=== PATIENT | female | born 1935 | race Caucasian/White ===

== ENCOUNTER 2020-10-16 08:51 | Outpatient (REF) | payer MEDICARE, SELFPAY ==
--- NOTE | 2020-10-16 | PFT_ITS ---
INDICATIONS: Asthma, COPD/overlap syndrome. SPIROMETRY: The FEV1 to FVC 79% with an FEV1 of 2.2 L, which is 129% predicted, and an FVC of 2.81 L, which is 121% predicted. No significant response to bronchodilators noted. Maximum voluntary ventilation 101% predicted. LUNG VOLUMES: Total lung capacity 106% predicted. DIFFUSION CAPACITY: DLCO 71% predicted. COMPARISONS: None. INTERPRETATION: No obstructive nor restrictive ventilatory defects identified. No significant response to bronchodilators noted. Normal maximum voluntary ventilation. Lung volumes are within normal limits and diffusion capacity demonstrates a mild diffusion impairment. Clinical correlation warranted. Roshan Monk MD MR/MODL / [id number]
== END 2020-10-16 08:52 | disposition home or self-care (01) ==
LOC: HO.RESP 08:51
PROVIDERS: PCP Internal Medicine; Visit Provider Hospitalist
DX: J44.9 Chronic obstructive pulmonary disease, unspecified (principal)
CPT/HCPCS: 94060; 94727; 94729; 99212

== ENCOUNTER → 2021-10-15 09:23 | Outpatient (BNVA) | payer MEDICARE, SELFPAY | PROVIDERS: PCP Internal Medicine; Visit Provider Hospitalist | DX: J45.40 Moderate persistent asthma, uncomplicated (principal); J30.9 Allergic rhinitis, unspecified; R91.8 Other nonspecific abnormal finding of lung field; K21.00 Gastro-esophageal reflux disease with esophagitis, without bleeding; R05.9 Cough, unspecified | CPT/HCPCS: 99212 ==

== ENCOUNTER → 2022-05-11 09:49 | Outpatient (BNVA) | payer MEDICARE, SELFPAY | PROVIDERS: PCP Internal Medicine; Visit Provider Hospitalist | DX: J45.40 Moderate persistent asthma, uncomplicated (principal); J30.9 Allergic rhinitis, unspecified; K21.00 Gastro-esophageal reflux disease with esophagitis, without bleeding; R91.8 Other nonspecific abnormal finding of lung field; Z79.899 Other long term (current) drug therapy | CPT/HCPCS: 99212 ==

== ENCOUNTER 2023-05-02 09:40 | Outpatient (AMB) | payer MEDICARE, SELFPAY ==
--- NOTE | 2023-05-02 09:47 | MHC.OFFVIS ---
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 She also has to history of cough in addition to reflux disease. Overall she has been doing well on the current respiratory regimen. Unfortunately, she was not able to get her nebulizer because of issues with her coverage and also getting her machine from the [employer] does requested. The patient does need a nebulizer specially during the spring and summer months for her respiratory status gets worse. One her to have everything available to treat herself effectively home. In the meantime the patient does have reflux symptoms. We did discuss the reflux diet and also had been taking omeprazole with good effect in the past. 10/16/2020 The patient is here for pulmonary follow-up visit. Overall the patient has been doing well. She has been taking the Spiriva and also the singular. Recently she was doing the spring cleaning and she started developing worsening cough. She had to use her short-acting beta agonist. She also used some cough syrup with good effect. The last time she was the short-acting beta agonist was yesterday. Her cough has now subsided. Her Spiriva is no longer being covered she was prescribed increase. She has not started as of yet as she still has some Spiriva. She did undergo pulmonary function studies today. I did review them with her. No evidence of any obstruction and no evidence of any restriction. She does have a mild diffusion impairment. The patient at this point is doing well. Her respiratory capacity stable. She was supposed to have a chest x-ray but she did not have it. At this point her respiratory exam is normal so will hold off on it. If she develops any worsening symptoms or recurring cough or have her undergo a chest x-ray. In the meantime she is going to try to see how she does off the Spiriva without starting the Incruse. It will also start her on additional nasal therapy for postnasal drip that is likely contributing to her cough. 10/15/2021 the patient is here for a pulmonary follow-up visit. Overall the patient is doing fairly well. She still complains of her chronic cough. [id number] severity. Does have a short-acting beta agonist. She is she is getting some relief with the Astelin nasal spray of the she does not like the after taste. We did review her last CT scan of the chest that was done over the summer of 2020 demonstrating pulmonary nodules. This was done at [facility]. She needs to have a repeat CT scan sometime in the early fall to addressed does nodular densities. 05/11/2022 the patient is here for a pulmonary follow-up visit. Overall the patient has been doing better. Her cough is better overall. She continues to respiratory medication. She is also using her nasal sprays. Does have nasal congestion but overall better. Patient did have a CT scan of the chest at [facility] which was personally by me. Her pulmonary nodules are stable and appears stable more than 2 years. Therefore at this point she will not need more serial CT scans unless she has any worsening symptoms or any new symptoms. The patient did have some slight haziness at the bases but no significant scarring noted. Clinically she is doing well. 05/02/2023 the patient is here for a pulmonary follow-up visit. For last few days she started developing a cough. It appears to be more a croupy cough sometimes she does bring up some phlegm. Also complaining of chest tightness and shortness of breath. She does have a nebulizer but she ran out of the nebulized solutions therefore she has minimal to use it. She has been using her respiratory medications with only partial resolution of symptoms. She is actively coughing in the office and is in the croupy. It appears to be consistent with viral syndrome although could develop into a bacterial process. Will go ahead and send her a course of antibiotics and also she will need prednisone for the wheezing and the asthma exacerbation. She needs to be using her nebulizer so therefore I will send her I am feels for her nebulizer machine. The patient will continue to use her maintenance therapy. The patient is no better she needs to call the office. Otherwise follow-up in 6 months. [facility] Medical History (Updated 05/02/23 @ 22:15 by Roshan Monk MD) Asthma-COPD overlap syndrome Pulmonary nodules Cough Chronic allergic rhinitis Asthma Gastroesophageal reflux disease with esophagitis Social History (Updated 10/15/21 @ 09:39 by ISHA Hyatt) Patient Tobacco Use Status: Never used Tobacco Review of Systems Const Denies night sweats ENT Denies change in voice, Denies lip swelling, Denies mouth pain, Reports nasal congestion, Reports nasal discharge and Denies tongue swelling Card Denies chest pain Resp Reports chest congestion, Reports cough and Reports wheezing GI Denies abdominal pain Musc Denies no additional complaints Neuro Denies Neuro-related abnormal movements Psych Denies no additional complaints Manuel/Lymph Denies easy bleeding and Denies lymphadenopathy Aller/Immun Denies lip swelling, Denies tongue swelling and Reports wheezing Physical Exam Vital Signs: Last Vital Signs Pulse 74 05/02/23 09:48 BP 142/60 H 05/02/23 09:48 Pulse Ox 98 05/02/23 09:48 Oxygen Delivery Method Room Air 05/02/23 09:48 BMI result Body Mass Index 23.4 Const General: alert HEENT General nose exam: Abnormal external nose present and Nasal discharge present Neck Neck: Yes normal visual inspection, Yes full ROM and Yes no lymphadenopathy Chest Chest palpation & inspection: normal inspection of the chest Resp Effort & Inspection: Actively coughing Quality: actively coughing Auscultation: no rales, rhonchi, wheezes and diminished lung sounds Cardio Rate: regular rate Rhythm: regular rhythm Heart sounds: S1 normal heart sound present and S2 normal heart sound present GI Palpation (GI): Soft to palpation and nontender Auscultation: normal bowel sounds General: Yes no CVA tenderness Back/Spine/Pelvis Back: no CVA tenderness Assessment & Plan Assessment & Plan (1) Asthma: Code(s): J45.909 - Unspecified asthma, uncomplicated Qualifiers: Asthma complication type: with acute exacerbation Asthma persistence: persistent Asthma severity: moderate Qualified Code(s): J45.41 - Moderate persistent asthma with (acute) exacerbation (2) Chronic allergic rhinitis: Code(s): J30.9 - Allergic rhinitis, unspecified (3) Gastroesophageal reflux disease with esophagitis: Code(s): K21.00 - Gastro-esophageal reflux disease with esophagitis, without bleeding Qualifiers: Esophagitis bleeding: without hemorrhage Qualified Code(s): K21.00 - Gastro-esophageal reflux disease with esophagitis, without bleeding (4) Pulmonary nodules: Code(s): R91.8 - Other nonspecific abnormal finding of lung field (5) Cough: Code(s): R05 - Cough Qualifiers: Cough type: chronic Qualified Code(s): R05.3 - Chronic cough (6) Laryngotracheitis: Code(s): J04.2 - Acute laryngotracheitis Plan start Azithromycin start prednisone taper continue Symbicort ASHLIE as needed Continue Astelin nasal spray Continue Singulair Reflux diet No serial CT chest at this time F/U 6 months or sooner if no better Medications: New azithromycin 500 mg PO DAILY 5 days 5 tabs 0RF prednisone PO daily; Take 2 tabs daily x 5 days, then 1 tablet daily x 5 days 10 days 15 tabs 0RF albuterol sulfate 2.5 mg (3 mL) inhalation QID 30 days 180 mL 5RF J44.9 - Chronic obstructive pulmonary disease, unspecified Coding Level of Care Code Est Pt Level 4 (47876) Diagnoses Moderate persistent asthma with acute exacerbation J45.41 Asthma complication type: with acute exacerbation Asthma persistence: persistent Asthma severity: moderate Chronic allergic rhinitis J30.9 Gastroesophageal reflux disease with esophagitis without hemorrhage K21.00 Esophagitis bleeding: without hemorrhage Pulmonary nodules R91.8 Chronic cough R05.3 Cough type: chronic Laryngotracheitis J04.2 Time Spent (min) 18
[2023-05-02 09:48] VITALS: BP 142/60; PULSE 74; O2SAT 98; BMI 23.4
== END 2023-05-02 10:15 | disposition home or self-care (01) ==
PROVIDERS: PCP Internal Medicine; Visit Provider Hospitalist
DX: J45.41 Moderate persistent asthma with (acute) exacerbation (principal); J30.9 Allergic rhinitis, unspecified; K21.00 Gastro-esophageal reflux disease with esophagitis, without bleeding; R91.8 Other nonspecific abnormal finding of lung field; R05.3 Chronic cough; J04.2 Acute laryngotracheitis
CPT/HCPCS: 99214

== ENCOUNTER → 2023-05-02 09:40 | Outpatient (BNVA) | payer MEDICARE, SELFPAY | PROVIDERS: PCP Internal Medicine; Visit Provider Hospitalist | DX: J45.41 Moderate persistent asthma with (acute) exacerbation (principal); J30.9 Allergic rhinitis, unspecified; J04.2 Acute laryngotracheitis; R05.3 Chronic cough; R91.8 Other nonspecific abnormal finding of lung field; K21.00 Gastro-esophageal reflux disease with esophagitis, without bleeding | CPT/HCPCS: 99212 ==

== ENCOUNTER 2023-10-31 09:52 | Outpatient (REF) | payer MEDICARE, OTHER, SELFPAY ==
--- NOTE | ~2023-10-31 | XR_ITS ---
EXAMINATION: XR CHEST CLINICAL INFORMATION: Chronic obstructive pulmonary disease COMPARISON: None available. TECHNIQUE: 2 views of the chest were obtained. FINDINGS: vascularity. LUNGS: Lungs are clear. No pneumothorax is seen. BONES: Bony skeleton is intact. XR/XR chest 2V IMPRESSION: Normal chest x-ray.
[2023-10-31 11:05] LABS: MANUAL DIFF FLAG NO
[2023-10-31 12:54] LABS: Basophils Absolute Auto 0.1 X10*3/uL (0.0-0.2); Basophils Percent Auto 0.8 % (0-2); Eosinophils Absolute Auto 0.6 X10*3/uL (0.0-0.4); Eosinophils Percent Auto 7.7 % (0-4); Hematocrit 35.6 % (37.0-47.0); Hemoglobin 12.2 g/dl (12.0-16.0); Imm Gran Abs Auto 0.03 X10*3/uL (0.00-0.03); Imm Gran Pct Auto 0.4 % (0.0-0.4); Lymphocytes Absolute Auto 0.9 X10*3/uL (1.2-4.9); Lymphocytes Percent Auto 10.9 % (20-40); Mean Corpuscular HGB Conc 34.3 g/dl (31.0-35.0); Mean Corpuscular Volume 87.7 fL (80.0-98.0); Mean Platelet Volume 10.5 fL (9.4-12.3); Monocytes Absolute Auto 0.6 X10*3/uL (0.1-1.2); Monocytes Percent Auto 7.4 % (2-11); Neutrophils Absolute Auto 5.7 x10*3/uL (2.0-8.3); Neutrophils Percent Auto 72.8 % (45-73); Platelet Count 232 X10*3/uL (160-400); Red Blood Count 4.06 X10*6/uL (4.20-5.50); Red Cell Distribution Width 12.5 % (11.0-16.0); White Blood Count 7.8 X10*3/uL (4.8-10.8)
[2023-10-31 13:36] LABS: Anion Gap 15 (12-20); Blood Urea Nitrogen 16 mg/dL (9-16); Calcium 9.2 mg/dL (8.4-10.2); Carbon Dioxide 24 mmol/L (22-29); Chloride 97 mmol/L (96-108); Erythrocyte Sedimentation Rate 32 MM/HR (0-20); Estimated Glomerular Filt Rate 50; Glucose Random 104 mg/dL (60-115); Potassium 3.7 mmol/L (3.3-5.1); Sodium 132 mmol/L (135-145)
[2023-11-01 21:34] LABS: IgA 185 mg/dL (70-320); IgG 1109 mg/dL (600-1540); IgM 54 mg/dL (50-300)
[2023-11-12 21:29] LABS: Immunoglobulin E 24 kU/L (<OR=114)
== END 2023-10-31 09:53 | disposition home or self-care (01) ==
LOC: HO.LAB 09:52
PROVIDERS: PCP Internal Medicine; Visit Provider Hospitalist
DX: J18.0 Bronchopneumonia, unspecified organism (principal); J44.9 Chronic obstructive pulmonary disease, unspecified
CPT/HCPCS: 36415; 71046; 80048; 82784; 82785; 85025; 85652; 99212

== ENCOUNTER 2023-10-31 09:52 | Outpatient (AMB) | payer MEDICARE, OTHER, SELFPAY ==
[2023-10-31 10:19] VITALS: PULSE 83; O2SAT 96; BMI 25.7
--- NOTE | 2023-10-31 10:19 | A.OFFVIS_ITS ---
Intake Vital Signs 10/31/23 10:19 Height 5 ft 3 in Weight 145 lb BMI 25.7 Pulse 83 Pulse Source Pulse Oximeter Pulse Oximetry (%) 96 Oxygen Delivery Method Room Air Intake Visit Reasons: COPD [place] Required: No Allergies No Known Allergies Allergy (Verified 10/31/23 10:20) HPI HPI Comments History of Present Illness0 Details The patient is an 87-year-old woman known history of asthma COPD overlap syndrome. She also has to history of cough in addition to reflux disease. Overall she has been doing well on the current respiratory regimen. Unfortunately, she was not able to get her nebulizer because of issues with her coverage and also getting her machine from the [employer] does requested. The patient does need a nebulizer specially during the spring and summer months for her respiratory status gets worse. One her to have everything available to treat herself effectively home. In the meantime the patient does have reflux symptoms. We did discuss the reflux diet and also had been taking omeprazole with good effect in the past. 05/11/2022 the patient is here for a pulmonary follow-up visit. Overall the patient has been doing better. Her cough is better overall. She continues to respiratory medication. She is also using her nasal sprays. Does have nasal congestion but overall better. Patient did have a CT scan of the chest at [facility] which was personally by me. Her pulmonary nodules are stable and appears stable more than 2 years. Therefore at this point she will not need more serial CT scans unless she has any worsening symptoms or any new symptoms. The patient did have some slight haziness at the bases but no significant scarring noted. Clinically she is doing well. 05/02/2023 the patient is here for a pulmonary follow-up visit. For last few days she started developing a cough. It appears to be more a croupy cough sometimes she does bring up some phlegm. Also complaining of chest tightness and shortness of breath. She does have a nebulizer but she ran out of the nebulized solutions therefore she has minimal to use it. She has been using her respiratory medications with only partial resolution of symptoms. She is actively coughing in the office and is in the croupy. It appears to be consistent with viral syndrome although could develop into a bacterial process. Will go ahead and send her a course of antibiotics and also she will need prednisone for the wheezing and the asthma exacerbation. She needs to be using her nebulizer so therefore I will send her I am feels for her nebulizer machine. The patient will continue to use her maintenance therapy. The patient is no better she needs to call the office. Otherwise follow-up in 6 months. 10/31/2023 the patient is here for sick visit. She developing worsening cough. She has been sick now for about 3 weeks. Initially she was coughing some lose sticky white phlegm. She felt congested. She has been using her nebulizer with good improvement of her symptoms. Although is only temporary. She has been using it twice a day now. Seems to be little better. Now her chest congestion has gotten a little heavier. The mucus is darker and thick in color and difficult to expectorate. She is concerned because she does not want a have worsening of her breathing she has a hard time already. On exam she does have any significant wheezing although she does have some crackles at the bases. Will go ahead and treat her for bronchopneumonia. The patient should have a chest x-ray and she has not had blood work and sometimes will go ahead and do that as well. Will go ahead and send her prescription for Augmentin. If the patient is not getting better I did give her a sputum cup in order for her to provide us a sputum culture. [facility] Medical History (Updated 10/31/23 @ 10:35 by Roshan Monk MD) Bronchopneumonia Asthma-COPD overlap syndrome Pulmonary nodules Cough Chronic allergic rhinitis Asthma Gastroesophageal reflux disease with esophagitis Social History (Updated 10/15/21 @ 09:39 by ISHA Hyatt) Patient Tobacco Use Status: Never used Tobacco Review of Systems Const Denies night sweats ENT Denies change in voice, Denies lip swelling, Denies mouth pain, Reports nasal congestion, Reports nasal discharge and Denies tongue swelling Card Denies chest pain Resp Reports chest congestion, Reports cough and Reports wheezing GI Denies abdominal pain Musc Denies no additional complaints Neuro Denies Neuro-related abnormal movements Psych Denies no additional complaints Manuel/Lymph Denies easy bleeding and Denies lymphadenopathy Aller/Immun Denies lip swelling, Denies tongue swelling and Reports wheezing Physical Exam Vital Signs: Last Vital Signs Pulse 83 10/31/23 10:19 Pulse Ox 96 10/31/23 10:19 Oxygen Delivery Method Room Air 10/31/23 10:19 BMI result Body Mass Index 25.7 Const General: alert HEENT General nose exam: Abnormal external nose present and Nasal discharge present Neck Neck: Yes normal visual inspection, Yes full ROM and Yes no lymphadenopathy Chest Chest palpation & inspection: normal inspection of the chest Resp Effort & Inspection: Actively coughing Quality: actively coughing Auscultation: rales, rhonchi, no wheezes and diminished lung sounds Cardio Rate: regular rate Rhythm: regular rhythm Heart sounds: S1 normal heart sound present and S2 normal heart sound present GI Palpation (GI): Soft to palpation and nontender Auscultation: normal bowel sounds General: Yes no CVA tenderness Back/Spine/Pelvis Back: no CVA tenderness Assessment & Plan Assessment & Plan (1) Asthma: Code(s): J45.909 - Unspecified asthma, uncomplicated Qualifiers: Asthma complication type: with acute exacerbation Asthma persistence: persistent Asthma severity: moderate Qualified Code(s): J45.41 - Moderate persistent asthma with (acute) exacerbation (2) Gastroesophageal reflux disease with esophagitis: Code(s): K21.00 - Gastro-esophageal reflux disease with esophagitis, without bleeding Qualifiers: Esophagitis bleeding: without hemorrhage Qualified Code(s): K21.00 - Gastro-esophageal reflux disease with esophagitis, without bleeding (3) Pulmonary nodules: Code(s): R91.8 - Other nonspecific abnormal finding of lung field (4) Cough: Code(s): R05 - Cough Qualifiers: Cough type: chronic Qualified Code(s): R05.3 - Chronic cough (5) Asthma-COPD overlap syndrome: Code(s): J44.9 - Chronic obstructive pulmonary disease, unspecified (6) Bronchopneumonia: Code(s): J18.0 - Bronchopneumonia, unspecified organism Plan start Augmentin start prednisone taper CXR Bloodwork continue Symbicort ASHLIE as needed Continue Astelin nasal spray Continue Singulair Reflux diet F/U 3 months Orders: Orders Basic Metabolic Panel Today J18.0 - Bronchopneumonia, unspecified organism XR chest 2V Today J44.9 - Chronic obstructive pulmonary disease, unspecified Complete Blood Count Auto Diff Today J18.0 - Bronchopneumonia, unspecified organism Immunoglobulins,IgG IgA IgM Today J18.0 - Bronchopneumonia, unspecified organism Sputum Cult + Gram stain Today J18.0 - Bronchopneumonia, unspecified organism Erythrocyte Sedimentation Rate Today J18.0 - Bronchopneumonia, unspecified organism Immunoglobulin E Today J18.0 - Bronchopneumonia, unspecified organism Medications: New amoxicillin-pot clavulanate 875-125 mg 1 tab PO BID 10 days 20 tabs 0RF prednisone PO daily; Take 2 tabs daily x 5 days, then 1 tablet daily x 5 days 10 days 15 tabs 0RF Coding Level of Care Code Est Pt Level 4 (19182) Diagnoses Moderate persistent asthma with acute exacerbation J45.41 Asthma complication type: with acute exacerbation Asthma persistence: persistent Asthma severity: moderate Gastroesophageal reflux disease with esophagitis without hemorrhage K21.00 Esophagitis bleeding: without hemorrhage Pulmonary nodules R91.8 Chronic cough R05.3 Cough type: chronic Asthma-COPD overlap syndrome J44.9 Bronchopneumonia J18.0 Time Spent (min) 17
== END 2023-10-31 10:41 | disposition home or self-care (01) ==
PROVIDERS: PCP Internal Medicine; Visit Provider Hospitalist
DX: J45.41 Moderate persistent asthma with (acute) exacerbation (principal); K21.00 Gastro-esophageal reflux disease with esophagitis, without bleeding; R91.8 Other nonspecific abnormal finding of lung field; R05.3 Chronic cough; J44.9 Chronic obstructive pulmonary disease, unspecified; J18.0 Bronchopneumonia, unspecified organism
CPT/HCPCS: 99214

== ENCOUNTER 2023-11-05 | Outpatient (REF) | payer MEDICARE, OTHER, SELFPAY | END 2023-11-05 00:01 | disposition home or self-care (01) | LOC: HO.LNP | PROVIDERS: Visit Provider Hospitalist | DX: J18.0 Bronchopneumonia, unspecified organism (principal) | CPT/HCPCS: 87070; 87077; 87185; 87205 ==

== ENCOUNTER 2024-02-05 10:24 | Outpatient (AMB) | payer MEDICARE, OTHER, SELFPAY ==
[2024-02-05 10:44] VITALS: BP 134/58; PULSE 63; O2SAT 98; BMI 25.7
--- NOTE | 2024-02-05 10:44 | A.OFFVIS_ITS ---
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 She also has to history of cough in addition to reflux disease. Overall she has been doing well on the current respiratory regimen. Unfortunately, she was not able to get her nebulizer because of issues with her coverage and also getting her machine from the [employer] does requested. The patient does need a nebulizer specially during the spring and summer months for her respiratory status gets worse. One her to have everything available to treat herself effectively home. In the meantime the patient does have reflux symptoms. We did discuss the reflux diet and also had been taking omeprazole with good effect in the past. 05/11/2022 the patient is here for a pulmonary follow-up visit. Overall the patient has been doing better. Her cough is better overall. She continues to respiratory medication. She is also using her nasal sprays. Does have nasal congestion but overall better. Patient did have a CT scan of the chest at [facility] which was personally by me. Her pulmonary nodules are stable and appears stable more than 2 years. Therefore at this point she will not need more serial CT scans unless she has any worsening symptoms or any new symptoms. The patient did have some slight haziness at the bases but no significant scarring noted. Clinically she is doing well. 05/02/2023 the patient is here for a pulmonary follow-up visit. For last few days she started developing a cough. It appears to be more a croupy cough sometimes she does bring up some phlegm. Also complaining of chest tightness and shortness of breath. She does have a nebulizer but she ran out of the nebulized solutions therefore she has minimal to use it. She has been using her respiratory medications with only partial resolution of symptoms. She is actively coughing in the office and is in the croupy. It appears to be consistent with viral syndrome although could develop into a bacterial process. Will go ahead and send her a course of antibiotics and also she will need prednisone for the wheezing and the asthma exacerbation. She needs to be using her nebulizer so therefore I will send her I am feels for her nebulizer machine. The patient will continue to use her maintenance therapy. The patient is no better she needs to call the office. Otherwise follow-up in 6 months. 10/31/2023 the patient is here for sick visit. She developing worsening cough. She has been sick now for about 3 weeks. Initially she was coughing some lose sticky white phlegm. She felt congested. She has been using her nebulizer with good improvement of her symptoms. Although is only temporary. She has been using it twice a day now. Seems to be little better. Now her chest congestion has gotten a little heavier. The mucus is darker and thick in color and difficult to expectorate. She is concerned because she does not want a have worsening of her breathing she has a hard time already. On exam she does have any significant wheezing although she does have some crackles at the bases. Will go ahead and treat her for bronchopneumonia. The patient should have a chest x-ray and she has not had blood work and sometimes will go ahead and do that as well. Will go ahead and send her prescription for Augmentin. If the patient is not getting better I did give her a sputum cup in order for her to provide us a sputum culture. 02/05/2024 The patient is here for a pulmonary follow up visit. She is feeling better. Completed the abx and prednisone. Has continued to use her respiratory therapy. Nebs as needed for now. CXR personally reviewed by me with bronchiectatic looking airways and minimal opacity of the right hemithorax.. Her bloodwork was reassuring with a strong immune system. [facility] Medical History (Updated 10/31/23 @ 10:35 by Roshan Monk MD) Bronchopneumonia Asthma-COPD overlap syndrome Pulmonary nodules Cough Chronic allergic rhinitis Asthma Gastroesophageal reflux disease with esophagitis Social History (Updated 10/15/21 @ 09:39 by ISHA Hyatt) Patient Tobacco Use Status: Never used Tobacco Review of Systems Const Denies night sweats ENT Denies change in voice, Denies lip swelling, Denies mouth pain, Reports nasal congestion and Denies tongue swelling Card Denies chest pain Resp Denies chest congestion, Reports cough and Denies wheezing GI Denies abdominal pain Musc Reports myalgias Neuro Denies Neuro-related abnormal movements Psych Denies no additional complaints Manuel/Lymph Denies easy bleeding and Denies lymphadenopathy Aller/Immun Denies lip swelling, Denies tongue swelling and Denies wheezing Physical Exam Vital Signs: Last Vital Signs Pulse 63 02/05/24 10:44 BP 134/58 L 02/05/24 10:44 Pulse Ox 98 02/05/24 10:44 Oxygen Delivery Method Room Air 02/05/24 10:44 BMI result Body Mass Index 25.7 Const General: alert HEENT General nose exam: Abnormal external nose present and Nasal discharge present Neck Neck: Yes normal visual inspection, Yes full ROM and Yes no lymphadenopathy Chest Chest palpation & inspection: normal inspection of the chest Resp Effort & Inspection: normal respiratory effort Auscultation: no rales, no rhonchi, no wheezes and diminished lung sounds Cardio Rate: regular rate Rhythm: regular rhythm Heart sounds: S1 normal heart sound present and S2 normal heart sound present GI Palpation (GI): Soft to palpation and nontender Auscultation: normal bowel sounds General: Yes no CVA tenderness Back/Spine/Pelvis Back: no CVA tenderness Assessment & Plan Assessment & Plan (1) Asthma: Code(s): J45.909 - Unspecified asthma, uncomplicated Category: Medical Qualifiers: Asthma complication type: with acute exacerbation Asthma persistence: persistent Asthma severity: moderate Qualified Code(s): J45.41 - Moderate persistent asthma with (acute) exacerbation (2) Gastroesophageal reflux disease with esophagitis: Code(s): K21.00 - Gastro-esophageal reflux disease with esophagitis, without bleeding Category: Medical Qualifiers: Esophagitis bleeding: without hemorrhage Qualified Code(s): K21.00 - Gastro-esophageal reflux disease with esophagitis, without bleeding (3) Pulmonary nodules: Code(s): R91.8 - Other nonspecific abnormal finding of lung field Category: Medical (4) Cough: Code(s): R05 - Cough Category: Medical Qualifiers: Cough type: chronic Qualified Code(s): R05.3 - Chronic cough (5) Asthma-COPD overlap syndrome: Code(s): J44.9 - Chronic obstructive pulmonary disease, unspecified Category: Medical Plan continue Symbicort ASHLIE as needed Continue Astelin nasal spray Continue Singulair Reflux diet F/U 6-8 months Coding Level of Care Code Est Pt Level 4 (19933) Diagnoses Moderate persistent asthma with acute exacerbation J45.41 Asthma complication type: with acute exacerbation Asthma persistence: persistent Asthma severity: moderate Gastroesophageal reflux disease with esophagitis without hemorrhage K21.00 Esophagitis bleeding: without hemorrhage Pulmonary nodules R91.8 Chronic cough R05.3 Cough type: chronic Asthma-COPD overlap syndrome J44.9 Time Spent (min) 17
== END 2024-02-05 11:17 | disposition home or self-care (01) ==
PROVIDERS: PCP Internal Medicine; Visit Provider Hospitalist
DX: J45.41 Moderate persistent asthma with (acute) exacerbation (principal); K21.00 Gastro-esophageal reflux disease with esophagitis, without bleeding; R91.8 Other nonspecific abnormal finding of lung field; R05.3 Chronic cough; J44.9 Chronic obstructive pulmonary disease, unspecified
CPT/HCPCS: 99214

== ENCOUNTER → 2024-02-05 10:24 | Outpatient (BNVA) | payer MEDICARE, OTHER, SELFPAY | PROVIDERS: PCP Internal Medicine; Visit Provider Hospitalist | DX: J44.9 Chronic obstructive pulmonary disease, unspecified (principal); J45.41 Moderate persistent asthma with (acute) exacerbation; K21.00 Gastro-esophageal reflux disease with esophagitis, without bleeding; R91.8 Other nonspecific abnormal finding of lung field; R05.3 Chronic cough | CPT/HCPCS: 99212 ==

== ENCOUNTER 2024-09-26 13:38 | Outpatient (AMB) | payer MEDICARE, OTHER, SELFPAY ==
--- OUTSIDE RECORDS SUMMARY | 2024-09-26 13:47 | XMS_ITS | Encounter Summary ---
Author [place] [address] Care Team Providers Care Blast Furnace Tender Name Role Phone Elvin Christianson MD Primary Care Provider [phone] Encounter Details Date Type Department Care Team (Late st Contact Info) Description 08/26/2024 Lab Requisition [facility] - Main Lab [address] [facility] [place] [id number] Jhonny Acevedo PA [address] [facility] [address] [place] [address] Other fatigue; Vitamin D deficiency, unspecified; Encounter for screening for diabetes mellitus; Essential (primary) hypertension Social History Tobacco Use Types Packs/Day Years Used Date Smoking Tobacco: Never Smokeless Tobacco: Never Alcohol Use Standard Drinks/Week Comments Yes 0 (1 standard drink = 0.6 oz pur e alcohol) Comments Unknown Sex and Gender Information Value Date Recorded Sex Assigned at Not on file Legal Sex Female 3:24 AM EST Gender Identity Not on file Sexual Orientation Not on file documented as of this encounter Plan of Treatment Not on file documented as of this encounter Procedures Procedure Name Priority Date/Time Associated Diagnosis Comments SST - GOLD Routine 08/26/2024 12:00 AM EST Other fatigue Vitamin D deficiency, unspecified Encounter for screening for diabetes mellitus Essential (primary) hypertension CBC WITH AUTO DIFFERENTIAL Routine 08/26/2024 12:00 AM EST Other fatigue Vitamin D deficiency, unspecified Encounter for screening for diabetes mellitus Essential (primary) hypertension VITAMIN D 25 HYDROXY Routine 08/26/2024 12:00 AM EST Other fatigue Vitamin D deficiency, unspecified Encounter for screening for diabetes mellitus Essential (primary) hypertension CBC AND DIFFERENTIAL Routine 08/26/2024 12:00 AM EST Other fatigue Vitamin D deficiency, unspecified Encounter for screening for diabetes mellitus Essential (primary) hypertension THYROID STIMULATING HORMONE Routine 08/26/2024 12:00 AM EST Other fatigue Vitamin D deficiency, unspecified Encounter for screening for diabetes mellitus Essential (primary) hypertension THYROXINE FREE Routine 08/26/2024 12:00 AM EST Other fatigue Vitamin D deficiency, unspecified Encounter for screening for diabetes mellitus Essential (primary) hypertension HEMOGLOBIN A1C Routine 08/26/2024 12:00 AM EST Other fatigue Vitamin D deficiency, unspecified Encounter for screening for diabetes mellitus Essential (primary) hypertension VITAMIN B12 Routine 08/26/2024 12:00 AM EST Other fatigue Vitamin D deficiency, unspecified Encounter for screening for diabetes mellitus Essential (primary) hypertension COMPREHENSIVE METABOLIC PANEL Routine 08/26/2024 12:00 AM EST Other fatigue Vitamin D deficiency, unspecified Encounter for screening for diabetes mellitus Essential (primary) hypertension documented in this encounter Results * SST tube (08/26/2024 12:00 AM EST) Extra Tube Hold for add-ons. 08/26/2024 8:01 PM EST [facility] Comment:Auto resulted. Blood Venous blood specimen / Unknown 08/26/2024 08/26/2024 6:23 PM EST us Jhonny LYONS LAB BLOOD ORDERABLES Final Res ult [facility] [address] [place] [address], [place] [phone] * (ABNORMAL) CBC auto differential (08/26/2024 12:00 AM EST) [facility] WBC 8.3 4.8 - 10.8 K/mcL LAB HEMETOLOGY METHOD 08/26/2024 7:14 PM [facility] RBC 3.90 3.80 - 4.80 M/mcL LAB HEMETOLOGY METHOD 08/26/2024 7:14 PM [facility] Hemoglobin 12.1 11.5 - 16.0 g/dL LAB HEMETOLOGY METHOD 08/26/2024 7:14 PM [facility] Hematocrit 35.9 35.0 - 47.0 % LAB HEMETOLOGY METHOD 08/26/2024 7:14 PM [facility] MCV 92.5 79.0 - 98.0 FL LAB HEMETOLOGY METHOD 08/26/2024 7:14 PM [facility] MCH 31.2 27.0 - 32.0 pcg LAB HEMETOLOGY METHOD 08/26/2024 7:14 PM [facility] MCHC 33.7 32.0 - 37.0 g/dL LAB HEMETOLOGY METHOD 08/26/2024 7:14 PM [facility] RDW 12.4 11.0 - 15.0 % LAB HEMETOLOGY METHOD 08/26/2024 7:14 PM [facility] Platelets 270 130 - 400 K/mcL LAB HEMETOLOGY METHOD 08/26/2024 7:14 PM [facility] MPV 10.8 7.0 - 11.0 FL LAB HEMETOLOGY METHOD 08/26/2024 7:14 PM [facility] NRBC 0.0 <1.0 % LAB HEMETOLOGY METHOD 08/26/2024 7:14 PM [facility] NRBC Absolute 0.00 <0.10 K/mcL LAB HEMETOLOGY METHOD 08/26/2024 7:14 PM [facility] Neutrophils Relative 75.6 % LAB HEMETOLOGY METHOD 08/26/2024 7:14 PM [facility] Lymphocytes Relative 14.9 % LAB HEMETOLOGY METHOD 08/26/2024 7:14 PM [facility] Monocytes Relative 6.5 % LAB HEMETOLOGY METHOD 08/26/2024 7:14 PM [facility] Eosinophils Relative 1.8 % LAB HEMETOLOGY METHOD 08/26/2024 7:14 PM [facility] Basophils Relative 0.7 % LAB HEMETOLOGY METHOD 08/26/2024 7:14 PM [facility] Immature Granulocytes Relative 0.5 % LAB HEMETOLOGY METHOD 08/26/2024 7:14 PM [facility] Neutrophils Absolute 6.25 1.50 - 7.00 K/[facility] LAB HEMETOLOGY METHOD 08/26/2024 7:14 PM [facility] Lymphocytes Absolute 1.23 1.00 - 5.00 K/[facility] LAB HEMETOLOGY METHOD 08/26/2024 7:14 PM [facility] Monocytes Absolute 0.54 0.20 - 1.00 K/[facility] LAB HEMETOLOGY METHOD 08/26/2024 7:14 PM [facility] Eosinophils Absolute 0.15 0.00 - 0.50 K/[facility] LAB HEMETOLOGY METHOD 08/26/2024 7:14 PM [facility] Basophils Absolute 0.06 0.00 - 0.20 K/[facility] LAB HEMETOLOGY METHOD 08/26/2024 7:14 PM [facility] Immature Granulocytes Absolute 0.04(H) 0.00 - 0.03 K/[facility] LAB HEMETOLOGY METHOD 08/26/2024 7:14 PM [facility] Blood Venous blood specimen / Unknown 08/26/2024 08/26/2024 6:23 PM EST us Jhonny LYONS LAB BLOOD ORDERABLES Final Res ult [facility] [address] [place] [address], [place] [phone] * Vitamin D 25 hydroxy (08/26/2024 12:00 AM EST) Vit D, 25-Hydroxy 33.2 30.0 - 80.0 ng/mL LAB CHEMISTRY METHOD 08/26/2024 9:02 PM EST [facility] Blood Venous blood specimen / Unknown 08/26/2024 08/26/2024 6:23 PM EST us Jhonny LYONS LAB BLOOD ORDERABLES Final Res ult Performing Organization Address City/[facility]/ZIP Co de Phone Number [facility] [address] [place] [address], [place] [phone] * Thyroid stimulating hormone (08/26/2024 12:00 AM EST) [facility] TSH 1.23 0.40 - 4.00 mcIU/mL LAB CHEMISTRY METHOD 08/26/2024 9:09 PM EST [facility] Blood Venous blood specimen / Unknown 08/26/2024 08/26/2024 6:23 PM EST us Jhonny LYONS LAB BLOOD ORDERABLES Final Res ult [facility] [address] [place] [address], [place] [phone] * Hemoglobin A1c (08/26/2024 12:00 AM EST) Hemoglobin A1C 5.9 <6.5 % LAB CHEMISTRY METHOD 08/27/2024 2:33 PM EST [facility] Mean Bld Glu Estim. 123 mg/dL LAB CHEMISTRY METHOD 08/27/2024 2:33 PM EST [facility] Blood Venous blood specimen / Unknown 08/26/2024 08/26/2024 6:23 PM EST Jhonny LYONS LAB BLOOD ORDERABLES Final Res ult Performing Organization Address City/[facility]/ZIP Co de Phone Number [facility] [address] [place] [address], [place] [phone] * Thyroxine free (08/26/2024 12:00 AM EST) Pathologist [facility] Free T4 1.36 0.70 - 1.80 ng/dL LAB CHEMISTRY METHOD 08/26/2024 9:02 PM EST [facility] Blood Venous blood specimen / Unknown 08/26/2024 08/26/2024 6:23 PM EST us Jhonny LYONS LAB BLOOD ORDERABLES Final Res ult Performing Organization Address [facility]/ZIP Co de Phone Number [facility] [address] [place] [address], [place] [phone] * (ABNORMAL) Vitamin B12 (08/26/2024 12:00 AM EST) [facility] Vitamin B-12 204(L) 250 - 900 pcg/mL LAB CHEMISTRY METHOD 08/26/2024 8:06 PM EST [facility] Blood Venous blood specimen / Unknown 08/26/2024 08/26/2024 6:23 PM EST Jhonny LYONS LAB BLOOD ORDERABLES Final Res ult Performing Organization Address City/[facility]/ZIP Co de Phone Number [facility] [address] [place] [address], [place] [phone] * (ABNORMAL) Comprehensive metabolic panel (08/26/2024 12:00 AM EST) Sodium 133 133 - 145 mmol/L LAB CHEMISTRY METHOD 08/26/2024 8:06 PM [facility] Potassium 3.4(L) 3.5 - 5.5 mmol/L LAB CHEMISTRY METHOD 08/26/2024 8:06 PM [facility] Chloride 99 96 - 110 mmol/L LAB CHEMISTRY METHOD 08/26/2024 8:06 PM [facility] CO2 25 21 - 32 mmol/L LAB CHEMISTRY METHOD 08/26/2024 8:06 PM [facility] Anion Gap 9 3 - 11 LAB CHEMISTRY METHOD 08/26/2024 8:06 PM [facility] Glucose 104(H) 70 - 100 mg/dL LAB CHEMISTRY METHOD 08/26/2024 8:06 PM [facility] BUN 17 5 - 25 mg/dL LAB CHEMISTRY METHOD 08/26/2024 8:06 PM [facility] Creatinine 1.13(H) 0.50 - 1.10 mg/dL LAB CHEMISTRY METHOD 08/26/2024 8:06 PM [facility] eGFR 47(L) >=60 mL/min/1. 73m2 LAB CHEMISTRY METHOD 08/26/2024 8:06 PM [facility] Comment:Calculation based on the??Chronic Kidney Disease Epidemiology Collaboration (CKD-EPI) equation refit??without adjustment for race. BUN/Creatinine Ratio 15.0 LAB CHEMISTRY METHOD 08/26/2024 8:06 PM [facility] Calcium 8.8 8.5 - 10.5 mg/dL LAB CHEMISTRY METHOD 08/26/2024 8:06 PM [facility] AST (SGOT) 19 10 - 42 unit/L LAB CHEMISTRY METHOD 08/26/2024 8:06 PM [facility] ALT (SGPT) 27 10 - 60 unit/L LAB CHEMISTRY METHOD 08/26/2024 8:06 PM [facility] Alkaline Phosphatase 81 42 - 121 unit/L LAB CHEMISTRY METHOD 08/26/2024 8:06 PM [facility] Total Protein 7.2 6.0 - 8.0 g/dL LAB CHEMISTRY METHOD 08/26/2024 8:06 PM [facility] Albumin 4.1 3.2 - 5.0 g/dL LAB CHEMISTRY METHOD 08/26/2024 8:06 PM [facility] Total Bilirubin 0.6 0.0 - 1.4 mg/dL LAB CHEMISTRY METHOD 08/26/2024 8:06 PM [facility] Blood Venous blood specimen / Unknown 08/26/2024 08/26/2024 6:23 PM EST us Jhonny LYONS LAB BLOOD ORDERABLES Final Res ult [facility] [address] [place] [address], documented in this encounter Visit Diagnoses Diagnosis Other fatigue Vitamin D deficiency, unspecified Encounter for screening for diabetes mellitus Essential (primary) hypertension Unspecified essential hypertension documented in this encounter Care Teams Blast Furnace Tender Relationship Specialty Start Date End Date Elvin Christianson MD [address] [phone] PCP - General Internal Medicine 01/09/18 documented as of this encounter
--- OUTSIDE RECORDS SUMMARY | 2024-09-26 13:47 | XMS_ITS | Data Portability ---
Author Organization [place] [facility] Address [address] [place] [address] Care Team Providers Care Spectrograph Operator Name Role Phone JANICE ANDERSON Primary Care Provider [phone] Assessment Encounter Date Assessment Date Assessment LastModified by Organization Details LastModified Time 02/23/2023 02/23/2023 87-year-old female following up on her right total knee arthroplasty that was performed on 03/03/2022. She is doing well clinically. She understands that she needs to take her antibiotic prophylaxis prior to dental work for which we will be issuing prescriptions for up to 1 more year. After that 1 year she can discontinue her antibiotic prophylaxis per Dr. Gomez's protocol if her dentist wishes to continue this they can take over management. We will see her back in 5 years for repeat examination should she have any orthopedic needs should they arise she should contact our office. She agrees to the above-noted plan. Indirect care and treatment in conjunction with Dr. Gomez Additional treatment plan discussed with the patient in detail included the following; - Provider focused nonsteroidal anti-inflammator y regimen (discussed were the pros, cons, benefits and risks as well as any black box warnings) in patients over 60 years old they should be very cautious in taking these medications due to potential decreased kidney function and or elevated blood pressure. - Analgesic pain medication for pain suppression (discussed were the pros, cons, benefits and risks as well as any black box warnings) - The use of topical pain relieving medication were discussed - The use of ice to decrease inflammation and pain - The use of assistive ambulatory devices for ambulation and fall prevention - Formal specific guided physical therapy program I reviewed my findings at length with the patient today. ??We discussed the nature and etiology of this problem along with current treatment options. We discussed the expected course and outcomes and what to expect. We also discussed risks and benefits. ?? All of their questions were answered today, and there was exhibited understanding and comprehension of all that was discussed. Time Spent: 10 minutes were spent reviewing previous imaging and charting. ??10 minutes were spent obtaining patient history. ??5 minutes were spent on physical exam. ??5??minutes were spent explaining diagnosis and assessment. Today's documentation was made using voice recognition software. This note may contain grammatical errors secondary to the software. Not available 02/23/2023 07:34:34 Plan of Treatment Reminders Order Date Submit Date Provider Last Modified By Organization Details Last Modified Time Details Appointments None record ed. Lab None record ed. Referral None record ed. Procedures None record ed. Surgeries None record ed. Imaging XR, knee, 3 view 023 02/24/20 23 [email or web address] [facility], [address], [address], [place], [address], 09:35:43 Medication Orders None record ed. Patient TargetsNo targets recorded. Patient Instructions Encounter Date Encounter Id Patient Instructions Last Modified By Organization Details Last Modified Time 02/23/2023 [id number] Well-seated well-positioned right total knee arthroplasty without sign of loosening. No acute bony abnormality. Not available 02/23/2023 09:23:12 Reason for Referral None Reported. Procedures Surgical History Date Name Laterality Status Provider Name and Address Organization Details Recorded Time Hysterectomy/ bladder repair completed Angle [place] [facility], 02/23/2023 09:25:40 Imaging Results None recorded. Procedure Notes None recorded. Medical Equipment None Reported. Allergies No known drug allergies Medications Name Sig Start Date Stop Date Status Note LastModified by Organization Details LastModified Time amoxicillin 500 mg capsule TAKE 4 TABS 1 HOUR PRIOR TO DENTAL APPOINTME NT active Not Available Not Available No t Available atorvastati n 40 mg tablet TAKE 1 TABLET BY MOUTH EVERY DAY active Not Available Not Available No t Available metoprolol succinate ER 50 mg tablet,exte nded release 24 hr TAKE 1 TABLET BY MOUTH EVERY DAY active Not Available Not Available No t Available prednisone 20 mg tablet TAKE 3 TABLETS BY MOUTH EVERY DAY 02/23 completed Not Available Not Available Not Available torsemide 10 mg tablet TAKE 1 TABLET BY MOUTH EVERY DAY active Not Available Not Available No t Available amlodipine 5 mg tablet TAKE 1 TABLET BY MOUTH EVERY DAY active Not Available Not Available No t Available omeprazole 40 mg capsule,del ayed release TAKE 1 CAPSULE BY MOUTH EVERY DAY 02/23 completed Not Available Not Available Not Available acetaminoph en 500 mg tablet TAKE 1 TABLET BY MOUTH THREE TIMES A DAY FOR PAIN 02/23 completed Not Available Not Available Not Available valsartan 320 mg tablet TAKE 1 TABLET BY MOUTH EVERY DAY 02/23 completed Not Available Not Available Not Available montelukast 10 mg tablet TAKE 1 TABLET BY MOUTH EVERY DAY DIRECTED active Not Available Not Available No t Available lorazepam 1 mg tablet TAKE 1 TABLET BY MOUTH EVERY DAY AT BEDTIME NEEDED active Not Available Not Available No t Available ibuprofen 600 mg tablet TAKE 1 TABLET BY MOUTH 3 TIMES A DAY NEEDED FOR PAIN (MAX 2400 MG/DAY) 02/23 completed Not Available Not Available Not Available albuterol sulfate HFA 90 mcg/actuati on aerosol inhaler INHALE 2 PUFFS BY MOUTH EVERY 6 HOURS NEEDED active Not Available Not Available No t Available oxycodone 5 mg tablet TAKE 1 TABLET BY MOUTH EVERY 6 HOURS NEEDED FOR PAIN 02/23 completed Not Available Not Available Not Available valsartan 320 mg-hydrochl orothiazide 25 mg tablet TAKE 1 TABLET BY MOUTH EVERY DAY active Not Available Not Available No t Available Symbicort 160 mcg-4.5 mcg/actuati on HFA aerosol inhaler INHALE 2 PUFFS INTO LUNGS EVERY 12 HOURS active Not Available Not Available No t Available Incruse Ellipta 62.5 mcg/actuati on powder for inhalation TAKE 1 PUFF BY MOUTH EVERY DAY active Not Available Not Available No t Available Vitals Date Recorded Body height Body mass index (BMI) Body weight Provider Name and Address Organization Details Last Updated DateTime 02/23/2023 160.02 cm 26.6 kg/m2 88839.86 g Angle Pelayo [place] [facility], 02/23/2023 09:27:38 Social History Question Answer Notes LastModified by Organizat ion Details LastModified Time Tobacco Smoking Status Never Smoker Angle mccarty, [place] [facility] 02/23/2023 09:24:55 What Is Your Level Of Alcohol Consumption? Occasional Information not available 02/23/2023 How Many Times Per Week Do You Consume Alcohol? 1-2 Times Per Week Information not available 02/23/2023 Do You Use Any Illicit Or Recreational Drugs? No Information not available 02/23/2023 Do You Or Have You Ever Used Any Other Forms Of Tobacco Or Nicotine? No Information not available 02/23/2023 Sex: Unknown Functional Status None recorded. Mental Status None recorded. Family History Relationship Description Onset Age of this Age Resolved Age Notes LastModified by Organization Details LastModified Time Mother Arthritis [email or web address] Not available 02/23/2023 09:24:12 Mother Family history of malignant neoplasm Not available 2022 09:24:24 Mother Heart disease Not available 2022 09:24:38 Father Family history of malignant neoplasm Not available 2022 09:24:24 Medical History Condition Response COPD Y Heart Attack ([place]) Y Hypertension Y Gynecological HistoryNo gynecological history recorded. Obstetrics History GPAL:G 0 P 0 0 0 0 Past Encounters Encounter ID Performer Location Encounter Start Date Encounter Closed Date Diagnosis/Indication Diagnosis SNOMED-CT Code Diagnosis ICD10 Code Diagnosis Note [id number] Cholo Gomez MD [address] [address] 02/23/2023 08:56:11 02/23/2023 09:22:38 History of right total knee replacement [id number] Z96.651 Health Concerns Section Related Observation LastModified by Organization Detai ls LastModified Time None Recorded Concern Status LastModified by Organization Details LastModified Time None Recorded Advance Directives Directive None Recorded Payers Encounter Date Sequence Insurance Name Policy Number Policy Parker Covered Member ID Parker Member ID Guarantor Name 02/23/2023 1 [place] [employer] Daniela Mcfadden [id number] Daniela Mcfadden 02/23/2023 2 [facility] (MEDICARE SUPPLEMENT) Daniela Mcfadden [id number] Daniela Mcfadden Notes Date Note Type Note Provider Name and Address Organization Details Recorded Time 02/23/2023 text/html This is a very pleasant 87-year-old female last seen on 09/16/2022. History of left knee infrapatellar bursitis with previous aspirations. She states this is no longer present She is here for follow-up on her right total knee arthroplasty that was performed on 03/03/2022. She is doing her stretching exercises she has been taking her antibiotic prophylaxis as directed no other complaints. EVA JAIN PA-C [address] [place] [address], [place], [address], [place] [facility] 02/23/2023 09:23:45 OBGyn Episode No OBEpisode recorded.
--- OUTSIDE RECORDS SUMMARY | 2024-09-26 13:47 | XMS_ITS ---
Author Name [facility] Organization Unknown History of Medication Use Medication Directions Dispensed Refills Start Date End Date Stat us Symbicort 160 mcg-4.5 mcg/actuation HFA aerosol inhaler INHALE 2 PUFFS INTO LUNGS EVERY 12 HOURS active amoxicillin 500 mg capsule TAKE 4 TABS 1 HOUR PRIOR TO DENTAL APPOINTMENT active oxycodone 5 mg tablet TAKE 1 TABLET BY MOUTH EVERY 6 HOURS NEEDED FOR PAIN 02/23/2023 completed metoprolol succinate ER 50 mg tablet,extended release 24 hr TAKE 1 TABLET BY MOUTH EVERY DAY active atorvastatin 40 mg tablet TAKE 1 TABLET BY MOUTH EVERY DAY active ibuprofen 600 mg tablet TAKE 1 TABLET BY MOUTH 3 TIMES A DAY NEEDED FOR PAIN (MAX 2400 MG/DAY) 02/23/2023 completed montelukast 10 mg tablet TAKE 1 TABLET BY MOUTH EVERY DAY DIRECTED active Incruse Ellipta 62.5 mcg/actuation powder for inhalation TAKE 1 PUFF BY MOUTH EVERY DAY active torsemide 10 mg tablet TAKE 1 TABLET BY MOUTH EVERY DAY active albuterol sulfate HFA 90 mcg/actuation aerosol inhaler INHALE 2 PUFFS BY MOUTH EVERY 6 HOURS NEEDED active
--- OUTSIDE RECORDS SUMMARY | 2024-09-26 13:47 | XMS_ITS | Continuity of Care Document ---
Author Organization [facility] ter Address [address] [place] [id number]- Care Team Providers Care Buying Agent Name Role Phone Jhonny White Jr Primary Care Physician [id number] Date(s): 09/21/24 - 09/24/[address] [id number] Discharge Disposition: A-D/C Home Attending Physician: Danii Jacobs MD Admitting Physician: Savage Montenegro MD Referring Physician: Not on Staff, Referring MD Encounter Type: Disch IP Allergies, Adverse Reactions, Alerts No Known Allergies Medications amLODIPine 5 mg oral tablet 1 tablet, By Mouth, Daily, # 90 tablet, 3 Refills, Maintenance, 03/08/24 11:23:00 AM EDT, [id number], 160, cm, 11/08/23 8:43:00 EDT, Height, 63.5, kg, 09/21/22 14:36:00 EST, Dry Weight Start Date: 03/08/24 Status: Ordered Quantity: 90.0 Unit: tablet Repeat number: 1 amLODIPine 5 mg oral tablet 5 mg, Tablet, By Mouth, 09/24/24 9:00:00 AM EST Start Date: 09/24/24 Stop Date: 09/24/24 Status: Completed Repeat number: 1 aspirin 81 mg oral delayed release tablet 81 mg, By Mouth, Daily, # 30 tablet, Refills 1, Tot. Refills 1, Maintenance, 11/24/15 10:25:12 AM EDT, Route to Pharmacy Electronically, [facility] [facility] Start Date: 11/24/15 Stop Date: 01/23/16 Status: Ordered Quantity: 30.0 Unit: tablet Repeat number: 2 atorvastatin 40 mg oral tablet 1 tablet = 40 mg, By Mouth, Daily in AM, 0 Refills, Maintenance, 03/19/19 9:03:29 AM EDT Start Date: 03/19/19 Status: Ordered Repeat number: 1 Calcium Carbonate By Mouth, 0 Refills, Maintenance, 04/21/21 3:12:00 PM EDT, Partial fill upon patient request if the prescription is for a schedule II opioid drug. Start Date: 04/21/21 Status: Ordered Repeat number: 1 Incruse Ellipta 62.5 mcg/inh inhalation powder 1 inhalation = 62.5 mcg, Inhalation, Every 24 hours, doses should be taken at least 24 hours apart,0 Refills, Maintenance, 03/13/21 10:46:00 AM EDT, Powder, Partial fill upon patient request if the prescription is for a schedule II opioid drug. Start Date: 03/13/21 Status: Ordered Repeat number: 1 Lorazepam = 1 mg, Daily, 0 Refills, Maintenance, 04/21/21 3:12:00 PM EDT, Partial fill upon patient request if the prescription is for a schedule II opioid drug. Start Date: 04/21/21 Status: Ordered Repeat number: 1 metoprolol 50 mg oral tablet 50 mg, 1, tablet, By Mouth, Daily, Refills 0, Maintenance, 10/03/22 3:00:00 PM EST, Partial fill upon patient request if the prescription is for a schedule II opioid drug. Start Date: 10/03/22 Status: Ordered Repeat number: 1 montelukast 10 mg oral tablet 10 mg, 1, tablet, By Mouth, Daily at bedtime, Refills 0, Maintenance, 06/08/16 3:53:40 PM EDT Start Date: 06/08/16 Status: Ordered Repeat number: 1 Multivitamin Tablet By Mouth, Daily, 0 Refills, Maintenance, 06/08/16 3:54:10 PM EDT Start Date: 06/08/16 Status: Ordered Repeat number: 1 Omeprazole = 40 mg, By Mouth, Daily, 0 Refills, Maintenance, 04/21/21 3:11:00 PM EDT, Partial fill upon patient request if the prescription is for a schedule II opioid drug. Start Date: 04/21/21 Status: Ordered Repeat number: 1 Patient's Own Meds calcium 600mg, By Mouth, Daily, Maintenance, 03/19/19 9:16:59 AM EDT Start Date: 03/19/19 Status: Ordered Repeat number: 1 ProAir HFA = 90 mcg, Inhalation, 4 times a day, PRN Wheezing/Shortness of Breath, 0 Refills, Maintenance, 12/21/11 8:39:23 AM EDT Start Date: 12/21/11 Status: Ordered Repeat number: 1 Symbicort 160mcg/4.5mcg Inhaler 2, puffs, Inhalation, 2 times a day, # 6 Gm, Refills 0, Maintenance, 03/19/19 9:01:51 AM EDT, Aerosol Start Date: 03/19/19 Status: Ordered Quantity: 6.0 Unit: g Repeat number: 1 torsemide 20 mg oral tablet 1 tablet = 20 mg, By Mouth, Daily, # 30 tablet, 0 Refills, Maintenance, 09/24/24 11:09:00 AM EST, Tablet, [facility], Partial fill upon patient request if the prescription is for a schedule II opioid drug., 160, cm, 09/24/24 7:46:00 EST, Height, 62.2, kg, 09/21/24 20:29:00 EST, Dry Weight Start Date: 09/24/24 Status: Ordered Quantity: 30.0 Unit: tablet Repeat number: 1 Problem List Condition Confirmation Course Effective Dates Status H ealt Status Informant NSTEMI (non-ST elevated myocardial infarction) 1 Confirmed 11/21/15 Active CVA (cerebrovascular accident) Confirmed Active Preop cardiovascular exam Confirmed Active Takotsubo cardiomyopathy Confirmed Active 1cath 11/23/15 without obstructive CAD - echo with akinesis distal half LV = stress CM Results Radiology Reports * Exam Date Time Procedure Performing Provider Status 09/24/24 8:51 AM Chest 2 Views Frontal and Lat Chelsie Jane; Auth (Verified) Notes: (Chest 2 Views Frontal and Lat) Reason For Exam: Postop RESULT: Chest 2 Views Frontal and Lat Chest 2 Views Frontal and Lat Reason: Postop; Clinical Question(s): Postop COMPARISON: Multiple priors most recent 09/21/2024. FINDINGS: LINES AND TUBES: Dual-lead left subclavian pacer/ wires are intact. LUNGS AND PLEURA: Bibasilar atelectasis. Slight worsening bilateral pleural effusions from previous. No pneumothorax. HEART, MEDIASTINUM AND MIGUEL: Heart is normal in size. Normal mediastinal and hilar contour. BONES AND SOFT TISSUES: No acute abnormality. IMPRESSION: 1. No evidence of pneumothorax specifically on the left side seen. 2. Slight worsening bilateral pleural effusions from previous with evidence of bibasilar atelectasis. 3. Dual pacemaker with lead in the right atrium and right ventricle in good placement. WSN: [id number] Ordering Physician: Chelsea Moreno Dictated By: Bhanu Roew MD Dictated Date/Time: 09/24/24 9:39 am Reviewed By: Bhanu Rowe MD Signed By: Bhanu Rowe MD Signed Date/Time: 09/24/24 9:39 am Transcribed By: VINAY Transcribed Date/Time: 09/24/24 9:18 am * Exam Date Time Procedure Performing Provider Status 09/22/24 4:32 PM US Doppler Ext Lower Venous Left Erna Isaac; Auth (Verified) Notes: (US Doppler Ext Lower Venous Left) Reason For Exam: Swelling Extremities RESULT: US Doppler Ext Lower Venous Left US Doppler Ext Lower Venous Left Reason: Swelling Extremities; Clinical Question(s): Thrombus COMPARISON: None IMAGING TECHNIQUE: Ultrasound of the veins from the groin through the calf was performed using grayscale, color, and spectral Doppler ultrasound assessing for complete compressibility and normal flowcharacteristics. FINDINGS: Common femoral vein: Patent. No thrombosis. Femoral vein: Patent. No thrombosis. Popliteal vein: Patent. No thrombosis. Gastrocnemius veins: The visualized portions are patent without evidence of thrombosis. Peroneal veins: The visualized portions are patent without evidence of thrombosis. Posterior tibial veins: The visualized portions are patent without evidence of thrombosis. Contralateral common femoral vein: Patent. No thrombosis. OTHER FINDINGS: Scattered atherosclerotic plaque. IMPRESSION: No evidence of deep venous thrombosis. WSN: [id number] Ordering Physician: Arya Bryant Dictated By: Jenny Enrique MD Dictated Date/Time: 09/22/24 8:27 pm Reviewed By: Jenny Enrique MD Signed By: Jenny Enrique MD Signed Date/Time: 09/22/24 8:27 pm Transcribed By: VINAY Transcribed Date/Time: 09/22/24 8:27 pm * Exam Date Time Procedure Performing Provider Status 09/21/24 2:[address] Angio Chest Sherri Jane; Auth (Verified) Notes: (CT Angio Chest) Reason For Exam: PE suspected, Intermediate prob, positive D-dimer,;Other: RESULT: CT Angio Chest PROCEDURE: CT Angio Chest CLINICAL INDICATION: Cough and shortness of breath. This persisted during recent course of amoxicillin treatment. Concern for pulmonary embolism. TECHNIQUE: Spiral CTA of the chest was performed after rapid IV contrast administration without cardiac gating, triggered by an CLARA on the main pulmonary artery. Images are formatted in multiple planes using 2-D multiplanar and 3-D maximum intensity projection. 70 cc of Isovue 300 was administered intravenously. Weight-based protocol using automatic tube modulation was used to optimize exposure parameters. RADIATION DOSE PARAMETERS: CTDIvol Body: 7.80 mGy, DLP Body: 307 mGy*cm. COMPARISON: CTA Chest 09/21/2022. FINDINGS: CTA: Pulmonary arteries: No pulmonary embolism to the segmental level.. Thoracic aorta: There is very little contrast in the thoracic aorta therefore cannot be assessed. Infection. There is no thoracic aortic aneurysm. There is prominent calcification at the origin of the left subclavian artery, suggesting some degree of stenosis but this cannot be quantified on this exam.. OTHER FINDINGS: TRACHEA AND MAINSTEM BRONCHI: Patent without evidence of tracheal or endobronchial lesion. LUNGS AND PLEURA: Right Chest: Faint groundglass opacity in some areas. Otherwise the upper lobe is clear Minimal atelectasis in the middle lobe adjacent to major fissure. Lower lobe shows some dependent atelectasis posteriorly. There is also some faint groundglass opacity right lower lobe. Moderate pleural effusion. No pneumothorax. Left Chest: Upper lobe shows faint groundglass opacity. Band of atelectasis posteriorly adjacent to the major fissure. Lower lobe shows dependent atelectasis posteriorly and some groundglass opacity elsewhere. Moderate pleural effusion. No pneumothorax. MEDIASTINUM AND MIGUEL: The heart is of normal size. No pericardial effusion.. Moderate coronary calcification. There is no mediastinal or hilar adenopathy.. There is no esophageal abnormality. BONES OF THE CHEST: There is no thoracic spine compression fracture. No fracture ribs or sternum.. VISUALIZED UPPER ABDOMEN: 2.7 cm cyst in the liver.. IMPRESSION: CTA 1. No pulmonary embolism. 2. No thoracic aortic aneurysm. 3. There is probably a stenosis at the origin of the left subclavian artery which cannot be quantified on this exam.. CHEST 1. Moderate pleural effusions.. 2. The lungs show some atelectasis, and also some faint ground glass opacity in several areas. 3. The overall appearance above could all be explained by CHF and can be correlated clinically. 4. No acute mediastinal abnormality. 5. No fracture. WSN: [id number] Ordering Physician: Nestor Wells Dictated By: Tio Aguilar MD Dictated Date/Time: 09/21/24 3:10 pm Reviewed By: Tio Aguilar MD Signed By: Tio Aguilar MD Signed Date/Time: 09/21/24 3:10 pm Transcribed By: VINAY Transcribed Date/Time: 09/21/24 2:57 pm * Exam Date Time Procedure Performing Provider Status 09/21/24 10:51 AM Chest 2 Views Frontal and Lat Shameka Engel; Auth (Verified) Notes: (Chest 2 Views Frontal and Lat) Reason For Exam: Chest Pain;Other: RESULT: Chest 2 Views Frontal and Lat Chest 2 Views Frontal and Lat Hx of Present Illness: Pt. reports cogh and SOB x 2 weeks , was seen in urgent care and finished a courge of Amoxicillin. Pt. went to urgent care today since she was not getting better. Per urgent care paperwork pt. has bradycardia and pleural effusions. PMH OH, COPD and Strok; Reason: Other:; Chest Pain; Clinical Question(s): Other: COMPARISON: 09/20/2022. FINDINGS: LINES AND TUBES: None. LUNGS AND PLEURA: There is bilateral mild blunting of the costophrenic angles consistent with bilateral small pleuraleffusions. Underlying airspace disease cannot be excluded. No pneumothorax. HEART, MEDIASTINUM AND MIGUEL: Heart is normal in size. Normal mediastinal and hilar contour. BONES AND SOFT TISSUES: No acute abnormality. IMPRESSION: There is bilateral mild blunting of the costophrenic angles consistent with bilateral small pleuraleffusions. Underlying airspace disease cannot be excluded. WSN: [id number] Ordering Physician: Mike Redmond Dictated By: Carlyn Clifton MD Dictated Date/Time: 09/21/24 11:01 a Reviewed By: Carlyn Clifton MD Signed By: Carlyn Clifton MD Signed Date/Time: 09/21/24 11:01 am Transcribed By: VINAY Transcribed Date/Time: 09/21/24 10:58 am Vital Signs Most recent to oldest [Reference Range]: 1 2 3 Height 160 cm (09/24/24 7:46 AM) 160 cm (09/24/24 1:43 AM) 160 cm (09/23/24 7:30 PM) Weight 58.2 kg (09/24/24 6:49 AM) 59.4 kg (09/23/24 6:59 AM) 60.5 kg (09/22/24 4:08 AM) Oxygen Saturation [94-100 %] 98 % (09/24/24 7:46 AM) 95 % (09/24/24 1:43 AM) 97 % (09/23/24 7:30 PM) Pulse Rate [55-90 bpm] 94 bpm *H* (09/24/24 7:46 AM) 107 bpm *H* (09/24/24 1:43 AM) 95 bpm *H* (09/23/24 7:30 PM) Body Mass Index [18.5-24.99 kg/m2] 23.87 kg/m2 (09/21/24 8:29 PM) 24.22 kg/m2 (09/21/24 5:30 PM) 24.22 kg/m2 (09/21/24 2:59 PM) Blood Pressure [90-138/55-84 mm Hg] 132/62mm Hg (09/24/24 9:35 AM) 132/62mm Hg (09/24/24 7:46 AM) 137/68mm Hg (09/24/24 1:43 AM) Respiratory Rate [16-30 br/min] 20 br/min (09/24/24 7:46 AM) 18 br/min (09/24/24 1:43 AM) 18 br/min (09/23/24 7:30 PM) Temperature [96.8-100.4 DegF] 98.2 DegF (09/24/24 7:46 AM) 98.6 DegF (09/24/24 1:43 AM) 98.9 DegF (09/23/24 7:30 PM) Mode of Delivery (Oxygen) Room air (09/24/24 7:46 AM) Room air (09/24/24 1:43 AM) Room air (09/23/24 7:30 PM) Blood pressure sites Arm, left (09/24/24 7:46 AM) Arm, left (09/24/24 1:43 AM) Arm, left (09/23/24 7:30 PM) Temperature Route Oral (09/24/24 7:46 AM) Temporal (09/24/24 1:43 AM) Temporal (09/23/24 7:30 PM) Dry Weight 62.2 kg (09/21/24 8:29 PM) 62 kg (09/21/24 5:30 PM) 62 kg (09/21/24 2:59 PM) Weight Obtained Via Bed scale (09/24/24 6:49 AM) Bed scale (09/23/24 6:59 AM) Bed scale (09/22/24 4:08 AM) Dry Weight Obtained Via Patient/family stated (09/21/24 8:29 PM) Patient/family stated (09/21/24 10:19 AM) Social History Social History Type Response Smoking Status Never smoker entered on: 12/03/15 Sex Sex Representation Female (finding) Note * Event Display: Provider Clarification Note Please click on pdf link to open report * Marya Carrizales RN: PERFORM Event Display: Discharge/Transfer Note Hospital Authored Date: Nursing Discharge Note Entered On: 09/24/2024 13:00 EST Performed On: 09/24/2024 13:00 EST by Marya Carrizales RN Nursing Discharge Note 2 Discharge Time : 09/24/2024 12:55 EST Discharge Level of Care at Discharge : Home/Care Home/Foster Care Patient Left Unit Via : Wheelchair Patient Accompanied Off Unit with : Responsible adult DC Instructions Provided & Signed by Pt : Yes Patient Understands D/C Instructions : Yes Patient Instructions Discharge Signed : Yes Did Pt have Specialty Bed or Wound Vac : No Marya Carrizales RN - 09/24/2024 13:00 EST * Estuardo Vaughan MD: PERFORM Event Display: Discharge/Transfer Note Hospital Authored Date: Patient: ??GOYO CHANDLER ? Age:??88 Years?Sex:??Female?:??1935?? Patient Information Discharge Location: Primary Care Physician: Jhonny White Jr Admit Date/Time: 09/21/2024 15:45 Discharge Disposition Discharge Disposition: Home: No Services Discharge Diagnosis CHF (congestive heart failure) (I50.9) Heart block AV second degree (I44.1) Elevated serum creatinine (R79.89) Elevated troponin (R79.89) RBBB (I45.10) Pleural effusion due to CHF (congestive heart failure) (I50.9) Pleural effusion (J90) Left leg swelling (M79.89) COPD (chronic obstructive pulmonary disease) (J44.9) CVA (cerebrovascular accident) (I63.9) Takotsubo cardiomyopathy (I51.81) Hypokalemia (E87.6) Hypomagnesemia (E83.42) _ Discharge Medications Albuterol (ProAir HFA)??90 Microgram Inhalation 4 times a day as needed Wheezing/Shortness of Breath Amlodipine (amLODIPine 5 mg oral tablet)??1 tab(s) By Mouth Daily Aspirin (aspirin 81 mg oral delayed release tablet)??81 Milligram By Mouth Daily for 30 Days Atorvastatin (atorvastatin 40 mg oral tablet)??1 tab(s) 40 Milligram By Mouth Daily in AM Budesonide-Formoterol (Symbicort 160mcg/4.5mcg Inhaler)??2 puff(s) Inhalation 2 times a day Calcium Carbonate??By Mouth Lorazepam??1 Milligram Daily Metoprolol (metoprolol 50 mg oral tablet)??50 Milligram 1 tablet By Mouth Daily Montelukast (montelukast 10 mg oral tablet)??10 Milligram 1 tablet By Mouth Daily at bedtime Multivitamin (Multivitamin Tablet)??By Mouth Daily Omeprazole??40 Milligram By Mouth Daily Pt.'s Own Meds (Patient's Own Meds)??calcium 600mg By Mouth Daily torsemide (torsemide 20 mg oral tablet)??1 tab(s) 20 Milligram By Mouth Daily umeclidinium (Incruse Ellipta 62.5 mcg/inh inhalation powder)??1 inhalation 62.5 Microgram Inhalation Every 24 hours doses should be taken at least 24 hours apart Medications Started torsemide (torsemide 20 mg oral tablet)??1 tab(s) 20 Milligram By Mouth Daily Medications Discontinued Valsartan-HCTZ 320-25mg, stop taking, resume based on discussion with PCP/Cardiology Doses Changed None PCP Follow-Up/Heads-Up She??underwent??successful Medtronic pacemaker placement,??and has??a device follow-up appointment in 2 weeks.?? Please ensure that she attends this appointment. She was started on??daily oral torsemide 20 mg??for maintenance, please follow- up with her??on whether or not she needs to continue this??in the long-term. She had mild??serum creatinine elevation??likely secondary to??cardiorenal??syndrome,??this has been stable and downtrending, however please obtain outpatient BMP for complete resolution??to??baseline creatinine. Her valsartan???HCTZ was discontinued??in the setting of her??elevated serum creatinine,??please??discuss with her if she needs to continue this medication again. In terms of blood pressure and heart rate control, she??is continued on amlodipine 5 mg daily as well as metoprolol XL 50 mg daily. Future Appointments 2024 10:30 AM EST ?? Where: [facility] [address] [place] [id number]- Status: Pending Monday 3:45 PM EDT ?? With: Carrol QUINTANILLA, Esvin Mohr Where: [facility] [address] [place] [id number]- Status: Pending Hospital Course This is a 88-year-old female with a past medical history of Takotsubo cardiomyopathy with nonobstructive CAD in 2016, now with recovered LVEF, history of COPD, hypertension, history of CVA in the past who presented with lethargy, increased fatigue, dry cough. She was found to have clinical presentation of CHF as well as new onset second degree AV block Mobitz Type II??with bradycardia.?She underwent echocardiogram which showed EF 65%,??speckled pattern to the myocardium suggestive of possible infiltrative??process, cardiology consult for this, recommend outpatient follow-up, no intervention .?She was also seen by electrophysiology for PPM placement, had a successful??device placement??with insertion of dual-chamber pacemaker with??a and V leads.?She underwent IV diuresis??and??is??euvolemic on day of DC.?She was seen by??EP follow-up??and will have??an appointment in??2 weeks. ?? Congestive heart failure [I50.9] Second-degree AV block 221 [I44.1] History of Takotsubo cardiomyopathy [I51.81] Right bundle branch block [I45.10] Pleural effusion [J90] Hypomagnesemia??(E83.42), resolved Hypokalemia [E87.6], resolved She??has a history of Takotsubo cardiomyopathy, with??heart failure with improved ejection fraction, most recently EF of >70%??in 05/2021.??Recently, she has been experiencing??increased fatigue??intermittently,??first noticed this past summer, however??has been more persistent and progressive recently.??For the past week or so, she has been experiencing more fatigue,??as well as episodes of lightheadedness.??She was noted to be??bradycardic,??and EKG??as well as telemetry demonstrated??secondary AV block??Mobitz type II??for which??EP was consulted for.??She underwent??PPM placement today, no complications.??In terms of her CHF,??repeat echo??from??09/22/2024 shows??EF 65%,??mild to moderate concentric left ventricular hypertrophy, speckled pattern to the myocardium??suggestive of possible infiltrative process.??In addition, there is bilateral pleural effusions noted on echo. ?? Exam today shows??overall euvolemia, IVC was nondilated at 1.28cm with good inspiratory collapse. She had presence of small pleural effusion which will likely resolve with time and diuresis in the outpatient setting, she will be discharged on oral diuretics. She??had??successful placement of??Medtronic pacemaker,??her heart rate has been in the 90s??status post??procedure. She will have a device follow up appointment in 2 weeks, okay to resume metoprolol XL 50mg daily.? Recommendations: -Follow up with EP in 2 weeks -Start oral torsemide 20mg daily -Continue metoprolol XL 50mg daily ?? Elevated serum creatinine??(R79.89) Her baseline creatinine??is difficult to discern, however seems to be around 1.1 recently.??On admission,??her creatinine was 1.08, most recently increased to 1.24 today.??Elevation creatinine possibly secondary to??cardiorenal??contributing,??should resolve with diuresis. ?? Recommendations: -Monitor BMP in the outpatient setting for resolution back to baseline ?? Hypertension [I10] She has a history of hypertension and??at home takes??valsartan HCTZ combination,??was initially resumed on valsartan 320 mg daily??without the??HCTZ??in the setting of active IV diuresis.?However,??recently given her elevated creatinine,??will hold off on continuing for now. BP has been stable w nia off this medication. ?? Plan: -Continue amlodipine??5 mg daily -Continue holding valsartan-HCTZ on DC, can resume with PCP/Cardiology based on outpatient labs ?? Chronic/Stable/Resolved/Incidental medical conditions: Elevated troponin [R79.89] She had??an elevated troponin on admission, initially??37,??increased to 108??with no associated??signs/symptoms of ACS, no chest pain,??no ischemic changes on EKG.??Elevated troponin likely secondary to demand ischemia??in the setting of??AV block. No need to continue trending. Left leg swelling [M79.89]:??She had a symmetrical??left leg swelling, which is??noted to be??chronic.??D-dimer was noted to be elevated,??however CTA of the chest negative for PE.??Lower extremity Doppler ultrasound also negative for any DVT. History of CVA [I63.9]:??Continue aspirin??81mg, atorvastatin??40mg daily?? COPD [G44.9]:??Continue Breo-Ellipta, albuterol as needed ?? Objective Vital Signs?? Temperature: 98.2 DegF (09/24/24 07:46:00) Temperature Route: Oral (09/24/24 07:46:00) Pulse Rate:??94 bpm??High (09/24/24 07:46:00) Respiratory Rate: 20 br/min (09/24/24 07:46:00) Systolic Blood Pressure: 132 mm Hg (09/24/24 09:35:00) Diastolic Blood Pressure: 62 mm Hg (09/24/24 09:35:00) Blood pressure sites: Arm, left (09/24/24 07:46:00) Mean Arterial Pressure: 85 mm Hg (09/24/24 07:46:00) Pulse Pressure: 70 mm Hg (09/24/24 07:46:00) Oxygen Saturation: 98 % (09/24/24 07:46:00) Mode of Delivery (Oxygen): Room air (09/24/24 07:46:00) Early Warning Score: 0 (09/24/24 09:48:31) ? . Physical Exam Constitutional: Alert, in no acute distress. Head EENT: Extraocular muscle movement intact.??Moist mucous membranes.?? Neck: Supple. No JVD. Cardiovascular: S1S2 regular. No murmurs, rubs or gallops. Respiratory: Clear to auscultation. No wheezing or crackles. No use of accessory muscles. Gastrointestinal: Abdomen soft, non-tender, non-distended. Normal bowel sounds. Extremities: No lower extremity pitting??edema. Neurologic: AAOx3, Speech normal. No focal neurological deficits. Skin: No rash. Psychiatric: Normal mood and affect.?? Consultants Fawad QUINTANILLA, Duane Santana??- Electrophysiology Patient Education Titles [employer] Patient Education - Living with a Pacemaker?? [employer] Patient Education - Understanding Second-Degree Heart Block?? Follow-Up Appointments Added Follow Up ?Time Frame ?Comments Curtis LYONS, Jhonny?2 to 3 weeks Patient Instructions You were seen in the hospital??as he had shortness of breath, fatigue,??signs of excess fluid in your body. You were found??to be in heart failure exacerbation??as well as??newly diagnosed??arrhythmia called??AV block??Mobitz type II. He was seen by electrophysiology second watch sergeant??who??recommended pacemaker. You underwent successful??permanent pacemaker placement??with no complications. You were also given??diuretics??to help remove the excess fluid from your body. You will??be discharged on oral diuretic, torsemide 20mg (twice your previous dose) and can??discuss with your PCP/second watch sergeant??on whether or not you should continue this long-term. your home medication valsartan???hydrochlorothiazide??was held during this hospitalization as your kidney function??was mildly elevated??and sometimes this medication can??cause??a compromising affect. Your blood pressure was??within normal limits during this hospitalization??and??this medication will continue to be held on discharge, please discuss with your PCP/second watch sergeant whether or not you should resume this medication. You will be continued on??your amlodipine??5 mg??as well as metoprolol??extended release 50 mg daily??for blood pressure and heart rate control. Please??follow-up with your PCP??to update them on your current medical situation as well as go over your??medications. You have a follow-up appointment with??the device clinic in 2 weeks, please ensure that you follow-up with them. ?? Please return to the hospital if you experience any of the symptoms that you originally presented to the hospital with, or any other acute complaints including chest pain, shortness of breath. Results Discharge Labs BLOOD COUNT & DIFF WBC 9.3 k/mm3 ()?? 09/24/2024 00:07 RBC 3.95 m/mm3 (Low)?? 09/24/2024 00:07 Hgb 12.2 Gm/dL ()?? 09/24/2024 00:07 Hct 35.8 % ()?? 09/24/2024 00:07 MCV 90.6 femtoliters ()?? 09/24/2024 00:07 MCH 30.9 pg ()?? 09/24/2024 00:07 MCHC 34.1 Gm/dL ()?? 09/24/2024 00:07 Platelet Count 204 k/mm3 ()?? 09/24/2024 00:07 RDW-SD 43.3 femtoliters ()?? 09/24/2024 00:07 MPV 11.1 femtoliters ()?? 09/24/2024 00:07 Nucleated RBC (Automated) 0.0 #/100 WBC'S ()?? 09/24/2024 00:07 Abs. NRBC 0.0 k/mm3 ()?? 09/24/2024 00:07 Abs. Neut 5.7 k/mm3 ()?? 09/23/2024 07:27 Abs. Lymph 1.0 k/mm3 ()?? 09/23/2024 07:27 Abs. Turner 0.6 k/mm3 ()?? 09/23/2024 07:27 Abs. Eo 0.1 k/mm3 ()?? 09/23/2024 07:27 Abs. Baso 0.1 k/mm3 ()?? 09/23/2024 07:27 Neut % 75.7 % ()?? 09/23/2024 07:27 Lymph % 13.5 % (Low)?? 09/23/2024 07:27 Turner % 8.1 % ()?? 09/23/2024 07:27 Eos % 1.6 % ()?? 09/23/2024 07:27 Baso % 0.7 % ()?? 09/23/2024 07:27 Imm Gran 0.4 % ()?? 09/23/2024 07:27 Abs. Imm Gran 0.0 k/mm3 ()?? 09/23/2024 07:27 ?? CARDIAC Nt-Probnp 4933 pg/mL (High)?? 09/21/2024 10:30 High Sensitivity Troponin (HSTnT) 109 ng/L (Critical)?? 09/22/2024 12:24 ?? CHEM GENERAL Sodium 139 mmol/L ()?? 09/24/2024 00:07 Potassium 3.1 mmol/L (Low)?? 09/24/2024 00:07 Chloride 100 mmol/L ()?? 09/24/2024 00:07 Bicarbonate Level 24 mmol/L ()?? 09/24/2024 00:07 Anion Gap 15 mmol/L ()?? 09/24/2024 00:07 Glucose Level 104 mg/dL (High)?? 09/24/2024 00:07 BUN 23 mg/dL ()?? 09/24/2024 00:07 Creatinine-Blood 1.23 mg/dL (High)?? 09/24/2024 00:07 Estimated GFR Creatinine 43 ML/MIN/1.73 M2 ()?? 09/24/2024 00:07 Calcium 8.8 mg/dL ()?? 09/24/2024 00:07 Calcium, Ionized pH Corrected 1.21 mmol/L ()?? 09/23/2024 07:27 Phosphorus 3.0 mg/dL ()?? 09/23/2024 07:27 Magnesium 2.0 mg/dL ()?? 09/23/2024 07:27 Protein, Total 6.2 Gm/dL ()?? 09/23/2024 07:27 Albumin 3.7 Gm/dL ()?? 09/23/2024 07:27 AG Ratio 1.5 ()?? 09/23/2024 07:27 Alkaline Phosphatase 71 units/L ()?? 09/23/2024 07:27 AST (SGOT) 35 units/L (High)?? 09/23/2024 07:27 ALT (SGPT) 51 units/L (High)?? 09/23/2024 07:27 Bilirubin, Total 0.9 mg/dL ()?? 09/23/2024 07:27 ?? ENDOCRINE/TUMOR MARKER TSH 2.37 uIU/mL ()?? 09/22/2024 05:11 ? HEME OTHER Hold Blue Top SPECIMEN DISCARDED AFTER 4 HOURS. ()?? 09/21/2024 10:30 ? MISC. CHEMISTRY Hold Green Top SPECIMEN DISCARDED AFTER 1 WEEK ()?? 09/22/2024 08:31 ? URINE OTHER Est Creatinine Clearance 26.65 mL/min ()?? 09/24/2024 02:19 ? VIROLOGY Adenovirus by PCR NEGATIVE ()?? 09/22/2024 05:04 Coronavirus 229E by PCR (not COVID-19) NEGATIVE ()?? 09/22/2024 05:04 Coronavirus HKU1 by PCR (not COVID-19) NEGATIVE ()?? 09/22/2024 05:04 Coronavirus NL63 by PCR (not COVID-19) NEGATIVE ()?? 09/22/2024 05:04 Coronavirus OC43 by PCR (not COVID-19) NEGATIVE ()?? 09/22/2024 05:04 Human Metapneumovirus by PCR NEGATIVE ()?? 09/22/2024 05:04 Rhinovirus/Enterovirus by PCR NEGATIVE ()?? 09/22/2024 05:04 Influenza A by PCR NEGATIVE ()?? 09/22/2024 05:04 Influenza B by PCR NEGATIVE ()?? 09/22/2024 05:04 Parainfluenza 1 by PCR NEGATIVE ()?? 09/22/2024 05:04 Parainfluenza 2 by PCR NEGATIVE ()?? 09/22/2024 05:04 Parainfluenza 3 by PCR NEGATIVE ()?? 09/22/2024 05:04 Parainfluenza 4 by PCR NEGATIVE ()?? 09/22/2024 05:04 RSV by PCR NEGATIVE ()?? 09/22/2024 05:04 Bordetella Pertussis by PCR NEGATIVE ()?? 09/22/2024 05:04 Chlamydophila Pneumoniae by PCR NEGATIVE ()?? 09/22/2024 05:04 Mycoplasma Pneumoniae by PCR NEGATIVE ()?? 09/22/2024 05:04 COVID-19 (SARS-CoV-2) by PCR NEGATIVE ()?? 09/22/2024 05:04 Bordetella Parapertussis by PCR NEGATIVE ()?? 09/22/2024 05:04 ?EP Initial Pacemaker Generator Implant Report Demographics ?Patient Name ? RAMESH GOYO ? Gender ?Female ?Corporate ?Race ?Facility ?Room Number ? M7105 ? .[id number] ??Height ?62.99 inches ?Date of ?1935 ? Weight ?130.96 pounds ?Age ?88 year(s) ? BSA ? 1.62 m2 ?Accession Number ? [id number] ? BMI ? 23.2 kg/m2 ?Referring Physician ??Perez LYONS ? Date of Study ? 09/23/2024 ?Cnc Specialist ??Duane Celestin MD ? Fellow ?Additional Report To ?Assisting ? Provider ?Supervising Physician ?? Conclusions ?Signatures ?Electronically signed by Duane Celestin MD (Cnc Specialist) on ??09/23/2024 at 17:18 ? Procedure Procedure Type ?Pacemaker:Initial implant (generator and leads), Insert/replace of 2 chamber ??PM w\A&V leads ?? Procedure Description Following routine preparation and draping and the institution of conscious sedation and local anesthesia with 2% Lidocaine and Marcaine, an incision was made over the left deltopectoral groove. The axillary vein was accessed via Seldinger approach and able to accommodate two pacemaker leads. The atrial and ventricular leads were both inserted into the venous system and then the heart with the use of fluoroscopy. The atrial lead was positioned in the right atrial appendage and the ventricular lead in the septum of the right ventricle. The stimulation thresholds and endocardial signals in both positions were satisfactory. The two leads were tied to the surrounding tissues with the individual Ethibond ligatures, each around the two integral sleeves and attached to the pacemaker pulse generator. All bleeders were cauterized. The entire assembly was placed into the subcutaneous pocket, which had been previously developed. The wound was irrigated with 100 cc of Cefazolin solution and then closed with continuous V-Loc sutures. Exofin was applied to the skin. Cefazolin IV was given. The patient tolerated the procedure well and was returned to the room in good condition. ?? 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 ?? Devices and Leads Devices + + +---------+--------+ + +-------+ !Identification!Action ?!Location !Device ??!Serial # ??!Implant date!Model #! ! ?! ?! ? !name ?! ?! ?!? ! + + +---------+--------+ + +-------+ !New implant ?? !Implanted !Left ? !Augustina XT![id number]!09/23/2024 ??![id number] ! ! ?! ?!Pectoral !DR MRI ??! ?! ?! ? ! ! ?! ?! ? !Surescan! ?! ?! ? ! ! ?! ?! ? !50.80 mm! ?! ?! ? ! ! ?! ?! ? !46.6 mm ! ?! ?! ? ! ! ?! ?! ? !7.4 mm ??! ?! ?! ? ! ! ?! ?! ? !depth : ! ?! ?! ? ! ! ?! ?! ? !Item Ref! ?! ?! ? ! ! ?! ?! ? !# [id number]! ?! ?! ? ! + + +---------+--------+ + +-------+ ?? Leads + + +--------+ + + +-------+ !Identification!Action ?!Location!Lead name !Serial # ??!Implant ?!Model #! ! ?! ?! ?! ?! ?!date ? !? ! + + +--------+ + + +-------+ !New implant ?? !Implanted !RV ?!CapSureFix![id number]!09/23/2024 !4076-52! ! ?! ?! ?!Novus MRI ! ?! ? ! ? ! ! ?! ?! ?!SureScan ??! ?! ? ! ? ! ! ?! ?! ?!52 cm ? ! ?! ? ! ? ! ! ?! ?! ?!IS-1/BI : ! ?! ? ! ? ! ! ?! ?! ?!Item Ref #! ?! ? ! ? ! ! ?! ?! ?!4076-52 ?? ! ?! ? ! ? ! + + +--------+ + + +-------+ !New implant ?? !Implanted !RA ?!CapSureFix![id number]!09/23/2024 !4076-45! ! ?! ?! ?!Novus MRI ! ?! ? ! ? ! ! ?! ?! ?!SureScan ??! ?! ? ! ? ! ! ?! ?! ?!45 cm ? ! ?! ? ! ? ! ! ?! ?! ?!IS-1/BI : ! ?! ? ! ? ! ! ?! ?! ?!Item Ref #! ?! ? ! ? ! ! ?! ?! ?!4076-45 ?? ! ?! ? ! ? ! + + +--------+ + + +-------+ ?? Leads Measured and Programmed Data +-----+---------+ +---------+ +---------+ +------- ---+-------+ !Lead !Sensing Amplitude ?!Threshold (V) ?!Pulse Width (ms) ? !Impendence!Current! ! ? !(mV) ? ! ? ! ? !(Ohms) ?!(mA) ?? ! +-----+---------+ +---------+ +---------+ +------- ---+-------+ ! ? !Measured !Programmed !Measured !Programmed !Measured !Programmed ! ?! ? ! +-----+---------+ +---------+ +---------+ +------- ---+-------+ !RV ?? !5.4 ?!0.9 ?!0.75 ? !3.5 ?!0.4 ?!0.4 ?!532 ? ! ? ! +-----+---------+ +---------+ +---------+ +------- ---+-------+ !RA ?? !2.1 ?!0.3 ?!0.75 ? !3.5 ?!0.4 ?!0.4 ?!646 ? ! ? ! +-----+---------+ +---------+ +---------+ +------- ---+-------+ ?? Device Programming Bradycardia Zone +--------+ +--------+--------+---------+---------+-------+---------+ !Pacing ??!Mode Switch!Lower ?? !Upper ?? !Paced AV !Sensed AV!PVARP ??!VRP (ms) ! !Mode ?! ? !Rate ?!Rate ?!Interval !Interval !(ms) ?? ! ? ! ! ?! ? !(ppm) ?? !(ppm) ?? !(ms) ? !(ms) ? ! ? ! ? ! +--------+ +--------+--------+---------+---------+-------+---------+ !DDD ? !On ? !60 ?!120 ? !180 ?!150 ?!250 ?! ?! +--------+ +--------+--------+---------+---------+-------+---------+ ?? Medical History ?? Allergies ?- Lisinopril:. ?- Other allergy:(Zithromax). ?? Admission Data ?Admission Date: 09/21/2024 Admission Time: 15:45 ?Arrival Date: 09/23/2024 Arrival Time: 09:00 ?Reason for Admission:Cardiac - other. ?Hospital Status:Inpatient. ?? Procedure Data Procedure Date:09/23/2024Start:09:44End:10:38 ?? Sedation:My in-service moderate sedation time was from 0936 to 1031 . Refer to the procedural log for detailed chronological information. ?? The procedure was explained in detail to the patient. Risks, complications and alternative treatments were reviewed. Written consent was obtained. ?? Fluoroscopy Time: 4:12 minutes.Fluoroscopy Dose: 10.96 mGy. Dose Area Product: 1.7137Gy-cm2 ?? Contrast Material ?- No Contrast Media Used. ?? Procedure Medications ?- AncefI.V.2g, delivered by: Aaliyah Mccormack RN, 09/23/2024 09:36. ?- Versed (Midazolam)I.V.0.5mg, delivered by: Aaliyah Mccormack RN, ?09/23/2024 09:36. ?- Versed (Midazolam)I.V.0.5mg, delivered by: Aaliyah Mccormack RN, ?09/23/2024 09:42. ?- FentanylI.V.25mcg, delivered by: Aaliyah Mccormack RN, 09/23/2024 09:43. ?- Lidocaine 2%S.C.10ml, delivered by: Aaliyah Mccormack RN, 09/23/2024 ?09:44. ?- MarcaineS.C.10ml, delivered by: Aaliyah Mccormack RN, 09/23/2024 09:44. ?- Versed (Midazolam)I.V.0.5mg, delivered by: Aaliyah Mccormack RN, ?09/23/2024 09:45. ?- FentanylI.V.25mcg, delivered by: Reyna Lemus RN, 09/23/2024 10:04. ?- Versed (Midazolam)I.V.0.5mg, delivered by: Reyna Lemus RN, 09/23/2024 ?10:06. ?? Approach ?- Incision site: Left deltopectoral groove.The axillary vein was ?cannulated.A 7 Fr sheath was inserted.The Incision was closed ?successfully. ?- Incision site: Left deltopectoral groove.The axillary vein was ?cannulated.A 7 Fr sheath was inserted.The Incision was closed ?successfully. [1] ?? Patient???s care and plan discussed with attending, Dr. Jacobs. ?? This??note has been dictated with the assistance of Dragon dictation and may contain unintentional errors. Please feel free to contact me for any clarification. ?? Estuardo Vaughan MD Internal Medicine PGY1 Available by Thanx or [id number] [1]??EP; Fawad QUINTANILLA, Duane Santana 09/23/2024 09:44 EST * [place] HAGEN, Henny Angel: PERFORM Event Display: Patient Education/Instruction Authored Date: [id number] Inpatient Adult Discharge Instructions. [place] [id number] Name: GOYO CHANDLER : 1935?? Visit: 09/21/2024 15:45?? Current Date: 09/24/2024 11:58 ?? Account: [id number]?? Inpatient Adult Discharge Instructions We would like to thank you for allowing us to assist you with your healthcare needs. The following includes patient education materials and information regarding your injury/illness. Our entire staffstrives to provide an excellent experience for our patients and their families. PLEASE ENSURE YOU FOLLOW-UP PER THE INSTRUCTIONS BELOW! ?? YOUR OPINION IS IMPORTANT TO US! Please complete the survey you may receive by mail or email. Your feedback will be used to make improvements to the healthcare experiences of our patients and their families. Surveys are administered by [employer] ?? If further treatment with your primary care physician or another doctor is recommended, it is important for you to keep the appointment. Call your primary care physician or return to the Emergency Department immediately if your condition worsens, fails to improve, or new symptoms develop. If you need to find a doctor, you can call [facility] [employer] [facility] for a referral at [phone] or toll free at [phone] [phone]) or log in to [email or web address].. ?? [facility], in keeping with [facility] guidance, no longer requires face masks for staff, patientsor visitors in most situations. Similiar to time spent indoors at other locations, there is the chance that you were exposed to repiratory viruses during your time with us (such as flu or COVID-19). If you develop symptoms concerning for a viral respiratory infection, please seek testing (and treatment if indicated) from your medical provider or home test kit. ?? You can view and manage your care through the patient portal or by using a health care kunal of your choosing. [employer] is a website that allows you to securely view your medical information including your hospital discharge summary, office visit summaries, medications and follow-up visits. You can also request appointments, renew medications, and request access to your medical information using a health care kunal of your choosing, or just ask a question. You can enroll at [email or web address] or register during your next office visit. You have been discharged from [facility], Patient Care Unit: M7??. If you have any questions regarding these instructions, including results of studies pending, afteryou leave, please call us and we will be happy to assist you 06/03. [facility] Your Care Team Attending Physician Danii Jacobs MD?? Consulting Providers Danii Jacobs MD?? Discharging Providers Chelsea Moreno MD Reason for Your Visit Bradycardia, Dyspnea on exertion, new CHF?? Your Diagnosis Elevated serum creatinine Asthma CHF (congestive heart failure) COPD (chronic obstructive pulmonary disease) CVA (cerebrovascular accident) Elevated troponin General medical Heart block AV second degree HTN (hypertension) Hypokalemia Hypomagnesemia Left leg swelling Pleural effusion Pleural effusion due to CHF (congestive heart failure) RBBB Takotsubo cardiomyopathy Tests Performed Below is a partial list of the tests performed during your hospitalization. You may have had other tests and procedures not included in this list. Please discuss all test results with your provider. Basic Metabolic Panel CBC CBC w/ Differential Comprehensive Metabolic Panel High??Sensitivity??Troponin T Hold Blue Top Tube HOLD GREEN TUBE Ionized Calcium Magnesium Level Phosphorus Level PROBNP Respiratory Pathogen PCR with COVID-19 Troponin T, High Sensitivity TSH WITH REFLEX TO FT4 CT Angio Chest Doppler Ext Lower Venous Left (US) XR Chest 2 Views Frontal and Lat Add On Lab Order (Lab Add On Order)?? B Type Natriuretic Peptide (NT-proBNP) (PROBNP)?? Basic Metabolic Panel?? CBC?? CBC w/ Differential?? COVID-19, RSV, and Flu A/B, Rapid PCR?? CT Angio Chest?? Comprehensive Metabolic Panel?? High??Sensitivity??Troponin T (Troponin T, High Sensitivity)?? Hold Blue Top Tube?? Hold Green Top Tube (HOLD GREEN TUBE)?? Ionized Calcium?? Magnesium Level?? Phosphorus Level?? Respiratory Pathogen PCR with COVID-19?? TSH with T4 Reflex (Adults Only) (TSH WITH REFLEX TO FT4)?? US Doppler Ext Lower Venous Left (Doppler Ext Lower Venous Left (US))?? Chest 2 Views Frontal and Lat (XR Chest 2 Views Frontal and Lat)?? Primary Care Provider Jhonny White Jr? Advance Directive Health Care Proxy on File Yes - Health Care Proxy Discharge Vitals Temperature: 98.2 DegF Height: 160 cm Pulse Rate:??94 bpm??High Weight: 58.2 kg Respiratory Rate: 20 br/min Body Mass Index: 23.87 kg/m2 Systolic Blood Pressure: 132 mm Hg Body surface area: 1.65 Diastolic Blood Pressure: 62 mm Hg ?? Oxygen Saturation: 98 % ?? Studies Pending All studies ordered during this hospital stay have been completed unless listed below. Please discuss all pending results with your provider listed above in these instructions. ?? Add On Lab Order (Lab Add On Order)?? COVID-19, RSV, and Flu A/B, Rapid PCR?? What to do next Instructions From Your Doctor You were seen in the hospital??as he had shortness of breath, fatigue,??signs of excess fluid in your body. You were found??to be in heart failure exacerbation??as well as??newly diagnosed??arrhythmia called??AV block??Mobitz type II. He was seen by electrophysiology second watch sergeant??who??recommended pacemaker. You underwent successful??permanent pacemaker placement??with no complications. You were also given??diuretics??to help remove the excess fluid from your body. You will??be discharged on oral diuretic, torsemide 20mg (twice your previous dose) and can??discuss with your PCP/second watch sergeant??on whether or not you should continue this long-term. your home medication valsartan???hydrochlorothiazide??was held during this hospitalization as your kidney function??was mildly elevated??and sometimes this medication can??cause??a compromising affect. Your blood pressure was??within normal limits during this hospitalization??and??this medication will continue to be held on discharge, please discuss with your PCP/second watch sergeant whether or not you should resume this medication. You will be continued on??your amlodipine??5 mg??as well as metoprolol??extended release 50 mg daily??for blood pressure and heart rate control. Please??follow-up with your PCP??to update them on your current medical situation as well as go over your??medications. You have a follow-up appointment with??the device clinic in 2 weeks, please ensure that you follow-up with them. ?? Please return to the hospital if you experience any of the symptoms that you originally presented to the hospital with, or any other acute complaints including chest pain, shortness of breath. ?? Orders? 09/24/24 11:43:00 EST?? Scheduled Follow-Up Appointments 2024 10:30 AM EST ?? Where[facility] [address] [place] [id number]- Status: Pending Monday 3:45 PM EDT ?? With: Carrol QUINTANILLA, Esvin Mohr Where: [facility] [address] [place] [id number]- Status: Pending You Need to Schedule the Following Appointments Follow Up with??Jhonny White Jr When:??Within 1 week: call to discuss follow up visit Where: [address] [facility] [place] [address]- Discharge Medications GOYO CHANDLER :1935 Visit Date:09/21/2024 Medications: Please continue your medications until treatment is completed or stopped by your provider. Medications not listed below should be discontinued. Discuss any questions related to medications with your provider. What How Much When Instructions Next Dose Changed torsemide (torsemide 20 mg oral tablet) 1 tab(s) Oral Daily Pickup at [facility] In the AM? Unchanged Albuterol (ProAir HFA) 90 Microgram Inhalation 4 times a day as needed for Wheezing/Shortness of Breath As needed Unchanged Amlodipine (amLODIPine 5 mg oral tablet) 1 tab(s) Oral Daily In the AM? Unchanged Aspirin (aspirin 81 mg oral delayed release tablet) 81 Milligram Oral Daily Duration: 30 Days In the AM? Unchanged Atorvastatin (atorvastatin 40 mg oral tablet) 1 tab(s) Oral Daily in the morning Bedtime tonight Unchanged Budesonide-Formoterol (Symbicort 160mcg/ 4.5mcg Inhaler) 2 puff(s) Inhalation Twice a day Bedtime tonight Unchanged Calcium Carbonate Oral In the AM?? Unchanged Lorazepam 1 Milligram Daily In the AM?? Unchanged Metoprolol (metoprolol 50 mg oral tablet) 1 tab(s) Oral Daily In the AM?? Unchanged Montelukast (montelukast 10 mg oral tablet) 1 tab(s) Oral Daily at Bedtime In the AM?? Unchanged Multivitamin (Multivitamin Tablet) Oral Daily In the AM?? Unchanged Omeprazole 40 Milligram Oral Daily In the AM?? Unchanged Pt.'s Own Meds (Patient's Own Meds) calcium 600mg Oral Daily In the AM?? Unchanged umeclidinium (Incruse Ellipta 62.5 mcg/ inh inhalation powder) 1 inhalation Inhalation Every 24 hours doses should be taken at least 24 hours apart ?? In the AM?? Pharmacy Information [facility] 3: [address] [place], [place] [id number] [phone] ?? What When Comments Stop Taking Hydrochlorothiazide-Valsartan (hydrochlorothiazide-valsartan 25 mg-320 mg oral tablet) Prescription Given During Visit torsemide (torsemide 20 mg oral tablet) - 1 tablet = 20 mg, By Mouth, Daily, # 30 tablet, 0 Refills, [facility] [address], [address] [place] [id number]?? Laboratory Results Below is a partial list of the most recent Laboratory test results done prior to this discharge. You may have had other tests and procedures not included in this list. Please discuss all test resultswith your provider. Est Creatinine Clearance - 26.65 mL/min (09/24/2024) Basic Metabolic Panel (09/24/2024) ???Sodium - 139 mmol/L???Potassium - 3.1 mmol/L???Chloride - 100 mmol/L???Bicarbonate Level - 24 mmol/L???Anion Gap - 15 mmol/L???Glucose Level - 104 mg/dL???BUN - 23 mg/dL???Creatinine-Blood - 1.23 mg/dL???Estimated GFR Creatinine - 43 ML/MIN/1.73 M2???Calcium - 8.8 mg/dL CBC (09/24/2024) ???WBC - 9.3 k/mm3???RBC - 3.95 m/mm3???Hgb - 12.2 Gm/dL???Hct - 35.8 %???MCV - 90.6 femtoliters???MCH - 30.9 pg???MCHC - 34.1 Gm/dL???Platelet Count - 204 k/mm3???RDW-SD - 43.3 femtoliters???MPV - 11.1 femtoliters???Nucleated RBC (Automated) - 0.0 #/100 WBC'S???Abs. NRBC - 0.0 k/mm3 CBC w/ Differential (09/23/2024) ???WBC - 7.5 k/mm3???RBC - 3.96 m/mm3???Hgb - 12.2 Gm/dL???Hct - 36.7 %???MCV - 92.7 femtoliters???MCH - 30.8 pg???MCHC - 33.2 Gm/dL???Platelet Count - 212 k/mm3???RDW-SD - 44.8 femtoliters???MPV - 10.8 femtoliters???Nucleated RBC (Automated) - 0.0 #/100 WBC'S???Abs. NRBC - 0.0 k/mm3???Abs. Neut - 5.7 k/mm3???Abs. Lymph - 1.0 k/mm3???Abs. Turner - 0.6 k/mm3???Abs. Eo - 0.1 k/mm3???Abs. Baso - 0.1 k/mm3???Neut % - 75.7 %???Lymph % - 13.5 %???Turner % - 8.1 %???Eos % - 1.6 %???Baso % - 0.7 %???Imm Gran - 0.4 %???Abs. Imm Gran - 0.0 k/mm3 Comprehensive Metabolic Panel (09/23/2024) ???Sodium - 138 mmol/L???Potassium - 3.8 mmol/L???Chloride - 101 mmol/L???Bicarbonate Level - 24 mmol/L???Anion Gap - 13 mmol/L???Glucose Level - 103 mg/dL???BUN - 23 mg/dL???Creatinine-Blood - 1.24 mg/dL???Estimated GFR Creatinine - 42 ML/MIN/1.73 M2???Calcium - 9.2 mg/dL???Protein, Total - 6.2 Gm/ dL???Albumin - 3.7 Gm/dL???AG Ratio - 1.5???Alkaline Phosphatase - 71 units/L???AST (SGOT) - 35 units/L???ALT (SGPT) - 51 units/L???Bilirubin, Total - 0.9 mg/dL High??Sensitivity??Troponin T (09/21/2024) ???High Sensitivity Troponin (HSTnT) - 98 ng/L Hold Blue Top Tube (09/21/2024) ???Hold Blue Top - SPECIMEN DISCARDED AFTER 4 HOURS. HOLD GREEN TUBE (09/22/2024) ???Hold Green Top - SPECIMEN DISCARDED AFTER 1 WEEK Ionized Calcium (09/23/2024) ???Calcium, Ionized pH Corrected - 1.21 mmol/L Magnesium Level (09/23/2024) ???Magnesium - 2.0 mg/dL Phosphorus Level (09/23/2024) ???Phosphorus - 3.0 mg/dL PROBNP (09/21/2024) ???Nt-Probnp - 4933 pg/mL Respiratory Pathogen PCR with COVID-19 (09/22/2024) ???Adenovirus by PCR - NEGATIVE???Coronavirus 229E by PCR (not COVID-19) - NEGATIVE???Coronavirus HKU1 by PCR (not COVID-19) - NEGATIVE???Coronavirus NL63 by PCR (not COVID-19) - NEGATIVE???Coronavirus OC43 by PCR (not COVID-19) - NEGATIVE???Human Metapneumovirus by PCR - NEGATIVE???Rhinovirus/Enterovirus by PCR - NEGATIVE???Influenza A by PCR - NEGATIVE???Influenza B by PCR - NEGATIVE???Parainfluenza 1 by PCR - NEGATIVE???Parainfluenza 2 by PCR - NEGATIVE???Parainfluenza 3 by PCR - NEGATIVE???Parainfluenza 4 by PCR - NEGATIVE???RSV by PCR - NEGATIVE???Bordetella Pertussis by PCR - NEGATIVE??? Chlamydophila Pneumoniae by PCR - NEGATIVE???Mycoplasma Pneumoniae by PCR - NEGATIVE???COVID-19 (SARS-CoV-2) by PCR - NEGATIVE???Bordetella Parapertussis by PCR - NEGATIVE Troponin T, High Sensitivity (09/22/2024) ???High Sensitivity Troponin (HSTnT) - 109 ng/L TSH WITH REFLEX TO FT4 (09/22/2024) ???TSH - 2.37 uIU/mL You will be contacted within 72 hours with your results. Allergies (NKA means No Known Allergies) NKA Problems Active Problems??(7) Asthma?? CVA (cerebrovascular accident)?? HTN (hypertension)?? NSTEMI (non-ST elevated myocardial infarction)?? Pelvic mass?? Preop cardiovascular exam?? Takotsubo cardiomyopathy?? Education Materials Below is the list of Educational Leaflet Providered with your Discharge Instructions. [employer] Patient Education - Torsemide?? [employer] Patient Education - Heart Failure Zones?? [employer] Patient Education - Heart Failure: Making Changes to Your Diet?? [employer] Patient Education - Heart Failure: Tracking Your Weight?? [employer] Patient Education - Heart Failure Discharge Instructions for Heart Failure?? [employer] Patient Education - Discharge Instructions for Heart Failure?? [employer] Patient Education - Discharge Instructions for Pacemaker Implantation?? [employer] Patient Education - Living with a Pacemaker?? [employer] Patient Education - Understanding Second-Degree Heart Block?? Valuables and Belongings I fully understand and agree that [facility] accepts no responsibility for all my personal property including clothing, toilet articles, radios, jewelry, dentures, hearing aids, rings, money, or any other property that is in my possession or is brought to me after admission. I understand certain valuables may be placed in a hospital safe for a short period of time. I understand that the hospital is not liable for loss or damage due to accident, fire, or other natural occurrence while said property is in the safe. I accept full responsibility for any personal property that I keep with me, and will not hold the hospital responsible in case of loss or disappearance. I acknowledge that i have been encouraged to send valuables and belongings home. ?? Review of Valuable and Belonging List: With patient Date for Pt to Sign Valuables/Belongings: 09/21/24 19:29:00 ?? Other Discharge Information ? Pulmonary Rehab Status?? Pulmonary Rehab Discharge Status?? Respiratory Rate: 20 br/min ? Common Emergency Awareness Tips IS IT A STROKE? Act FAST and Check for these signs: FACE Does the face look uneven? ARM Does one arm drift down? SPEECH Does their speech sound strange? TIME Call at any sign of stroke ?? Heart Attack Signs Chest discomfort: Most heart attacks involve discomfort in the center of the chest and lasts more than a few minutes, or goes away and comes back. It can feel like uncomfortable pressure, squeezing, fullness or pain. Discomfort in upper body: Symptoms can include pain or discomfort in one or both arms, back, neck, jaw or stomach. Shortness of breath: With or without discomfort. Other signs: Breaking out in a cold sweat, nausea, or lightheaded. Remember, MINUTES DO MATTER. If you experience any of these heart attack warning signs, call to get immediate medical attention! ?? Smoking can increase your chances of developing chronic health problems and can cause harmful effects to other family members in your house. If you smoke, you are strongly encouraged to quit. Please call [facility] [employer] Link at [phone] or [phone] ([phone]) or log in to [email or web address] for referrals to smoking cessation programs. ?? 889 Suicide & Crisis Lifeline is available 06/03 if you or someone you know needs to find a reason to keep living. By calling 240 you'll be connected to a skilled, trained counselor at a crisis center in your area. INPATIENT DISCHARGE INSTRUCTIONS SIGNATURE GOYO WALSH Location:[facility] Registration Date and Time:09/21/2024 15:45 EST Primary Care Physician: hJonny White Jr, Attending Physician: Danii Jacobs MD, I GOYO CHANDLER, have received the above patient education materials/instructions and have verbalized understanding. If ambulance or transport services are being used I further acknowledge being given a choice of service. ?? If you need to contact me, please call me at this number: . Patient/Floatman Name: Patient/Floatman Signature: Relationship to Patient: Witness Name/Signature: Date: * Henny Downing RN: PERFORM Event Display: Patient Education Leaflets Authored Date: [id number] Torsemide ?? [id number] Torsemide Brand Name(s): Demadex??; also available generically ?? WHY is this medicine prescribed? Torsemide is used alone or in combination with other medications to treat high blood pressure. Torsemide is used to treat edema (fluid retention; excess fluid held in body tissues) caused by various medical problems, including heart, kidney, or liver disease. Torsemide is in a class of medications called diuretics ('water pills'). It works by causing the kidneys to get rid of unneeded water and salt from the body into the urine. High blood pressure is a common condition, and when not treated it can cause damage to the brain, heart, blood vessels, kidneys and other parts of the body. Damage to these organs may cause heart disease, a heart attack, heart failure, stroke, kidney failure, loss of vision, and other problems. In addition to taking medication, making lifestyle changes will also help to control your blood pressure. These changes include eating a diet that is low in fat and salt, maintaining a healthy weight, exercising at least 30 minutes most days, not smoking, and using alcohol in moderation. HOW should this medicine be used? Torsemide comes as a tablet to take by mouth. It usually is taken once a day. To help you remember to take torsemide, take it around the same time every day. Follow the directions on your prescription label carefully, and ask your doctor or pharmacist to explain any part you do not understand. Taketorsemide exactly as directed. Do not take more or less of it or take it more often than prescribedby your doctor. Torsemide controls high blood pressure and edema but does not cure these conditions. Continue to take torsemide even if you feel well. Do not stop taking torsemide without talking to your doctor. Are there OTHER USES for this medicine? This medicine is sometimes prescribed for other uses; ask your doctor or pharmacist for more information. What SPECIAL PRECAUTIONS should I follow? Before taking torsemide, ??? tell your doctor and pharmacist if you are allergic to torsemide, sulfonamide medications, any other medications, or any of the ingredients in torsemide tablets. Ask your pharmacist or check the patient information for a list of the ingredients. ??? tell your doctor and pharmacist what prescription and nonprescription medications, vitamins, nutritional supplements, and herbal products you aretaking or plan to take while taking torsemide. Your doctor may need to change the doses of your medications or monitor you carefully for side effects ??? the following nonprescription products may interact with torsemide: aspirin and nonsteroidal anti-inflammatory drugs (NSAIDs) such as ibuprofen (A dvil, Motrin, others) and naproxen (Aleve, Naprosyn, others). Be sure to let your doctor and pharmacist know that you are taking these medications before you start taking torsemide. Do not start any of these medications while taking torsemide without discussing with your healthcare provider. ??? ifyou are taking cholestyramine (Questran), take it 4 hours before or 1 hour after toresemide. ??? tell your doctor if you have or have ever had kidney disease. Your doctor may tell you not to take toresemide. ??? tell your doctor if you have or have ever had diabetes, gout, heart, or liver disease. ??? tell your doctor if you are , plan to become , or are . Do not breastfeed while taking this medicine. If you become while taking torsemide, call your doctor. ??? you should know that torsemide may cause dizziness, lightheadedness, and fainting when you get up too quickly from a lying position. This is more common when you first start taking torsemide. To avoid this problem, get out of bed slowly, resting your feet on the floor for a few minutes before standing up. Alcohol can add to these side effects. What SPECIAL DIETARY instructions should I follow? If your doctor prescribes a low-salt or low-sodium diet, or to eat or drink increased amounts of potassium-rich foods (e.g., bananas, prunes, raisins, and orange juice) in your diet, follow these instructions carefully. What should I do IF I FORGET to take a dose? Take the missed dose as soon as you remember it. However, if it is almost time for your next dose, skip the missed dose and continue your regular dosing schedule. Do not take a double dose to make upfor a missed one. What SIDE EFFECTS can this medicine cause? Some side effects can be serious. If you have any of these symptoms, call your doctor immediately or get emergency medical treatment: ??? dry mouth; thirst; nausea; vomiting; weakness, tiredness; drowsiness; restlessness; confusion; muscle weakness, pain, or cramps; fast heartbeat and other signs of dehydration and electrolyte imbalance ??? rapid, excessive weight loss ??? vomiting blood ??? chest pain ??? difficulty breathing orswallowing ??? blisters or peeling skin ??? hives ??? rash ??? itching ??? ongoing pain that beginsin the stomach area, but may spread to the back If you experience a serious side effect, you or your doctor may send a report to the Food and Drug Administration's (FDA) MedWatch Adverse Event Reporting program online (https://www.fda.gov/Safety/MedWatch) or by phone ( ). What should I know about STORAGE and DISPOSAL of this medication? Keep this medicine in the container it came in, tightly closed, and out of reach of children. Storeit at room temperature and away from excess heat and moisture (not in the bathroom). Unneeded medications should be disposed of in special ways to ensure that pets, children, and otherpeople cannot consume them. However, you should not flush this medication down the toilet. Instead,the best way to dispose of your medication is through a medicine take-back program. Talk to your pharmacist or contact your local garbage/recycling department to learn about take-back programs in your community. See the FDA's Safe Disposal of Medicines website (https://goo.gl/c4Rm4p) for more information if you do not have access to a take-back program. It is important to keep all medication out of sight and reach of children as many containers (such as weekly pill minders and those for eye drops, creams, patches, and inhalers) are not child-resistant and young children can open them easily. To protect young children from poisoning, always lock safety caps and immediately place the medication in a safe location ??? one that is up and away and out of their sight and reach. https://www.upandaway.org What should I do in case of OVERDOSE? In case of overdose, call the poison control helpline at . Information is also available online at https://www.poisonhelp.org/help. If the victim has collapsed, had a seizure, has trouble breathing, or can't be awakened, immediately call emergency services at 314. What OTHER INFORMATION should I know? Keep all appointments with your doctor and the laboratory. Your blood pressure should be checked regularly, and blood tests should be done occasionally. Before having any laboratory test, tell your doctor and the laboratory personnel that you are taking torsemide. Do not let anyone else take your medicine. Ask your pharmacist any questions you have about refilling your prescription. It is important for you to keep a written list of all of the prescription and nonprescription (sfss-kwb-[id number]) medicines you are taking, as well as any products such as vitamins, minerals, or otherdietary supplements. You should bring this list with you each time you visit a doctor or if you areadmitted to a hospital. It is also important information to carry with you in case of emergencies. This report on medications is for your information only, and is not considered individual patient advice. Because of the changing nature of drug information, please consult your physician or pharmacist about specific clinical use. The [employer] represents that the information provided hereunder was formulated with a reasonable standard of care, and in conformity with professional standards in the field. The [employer] makes no representations or warranties, express or implied, including, but not limited to, any implied warranty of merchantability and/or fitness for a particular purpose, with respect to such information and specifically disclaims all such warranties. Users are advised that decisions regarding drug therapy are complex medical decisions requiring the independent, informed decision of an appropriate health pharmacy care coordinator, and the information is provided for informational purposes only. The entire monograph for a drug should be reviewed for a thorough understanding of the drug's actions, uses and side effects. The [employer] does not endorse or recommend the use of any drug.The information is not a substitute for medical care. AHFS?? Patient Medication Information???. ?? Copyright, 2023. The [employer]??, [address], [address], [place], [place]. All Rights Reserved. Duplication for commercial use must be authorized by [facility]. Selected Revisions: March 02, 2024. AHFS?? Patient Medication Information???. ?? Copyright, 2024 ?? * Salina HAGEN, Henny Angel: PERFORM Event Display: Patient Education Leaflets Authored Date: [id number] Heart Failure Zones ?? 154 HEART FAILURE ZONES EVERY DAY Weigh yourself on your scale when you return home from the hospital.?? Your weight pounds. ?? EVERY DAY: ??? Weigh yourself in the morning before breakfast, write it down and compare it to yesterday???s weight. ??? Take your medicine as prescribed. ??? Check for swelling in your feet, ankles, legs and stomach. ??? Eat low-salt food. ??? Balance activity and rest periods. Which Heart Failure Zone are you today? GREEN, YELLOW, or RED? GREEN ZONE ALL CLEAR - This zone is your goal Your symptoms are under control when: ??? No shortness of breath. ??? No weight gain of more than 2 pounds in one day (it may change 1 or2 pounds some days). ??? No swelling of your feet, ankles, legs or stomach. ??? No chest pain. YELLOW ZONE STOP & CALL CAUTION - This zone is a warning If you have one or more, of the following: ?? Call Nurse: ?? Call Doctor: ? Weight gain of more than 3 pounds in 2 days or 5 pounds or more in 1 week. ??? More shortness of breath than usual. ??? More swelling of your feet, ankles, legs, or stomach than usual. ??? Feeling more tired than usual (no energy). ??? A dry, hacking cough. ??? Feeling dizzy. ??? Feeling uneasy, you know something not right. ??? Harder to breathe when lying down (need to sleep sitting in a chair). RED ZONE EMERGENCY ??? Go to the emergency room or call 911 if you have any of the following: ??? Struggling to breathe: unrelieved shortness of breath while sitting still. ??? Chest pain. ??? Confusion or unable to think clearly. ? * Salina HAGEN, Henny Angel: PERFORM Event Display: Patient Education Leaflets Authored Date: [id number] Heart Failure: Making Changes to Your Diet ?? 35803 Heart Failure: Making Changes to Your Diet You have a condition called heart failure. When you have heart failure, excess fluid is more likelyto build up in your body because your heart isn't working well. This makes the heart work harder topump blood. Fluid buildup causes symptoms such as shortness of breath and swelling (edema). This isoften called congestive heart failure or CHF. Controlling the amount of salt (sodium) you eat may help stop fluid from building up. Your healthcare provider may also tell you to reduce the amount of fluid you drink. Reading food labels Your healthcare provider will tell you how much sodium you can eat each day. Read food labels to keep track. Keep in mind that certain foods are high in salt. These include canned, frozen, and processed foods. Check the amount of sodium in each serving. Watch out for high-sodium ingredients. These include MSG (monosodium glutamate), baking soda, and sodium phosphate. ?? Eating less salt Give yourself time to get used to eating less salt. It may take a little while. Here are some tips to help: ??? Take the saltshaker off the table. Replace it with salt-free herb mixes and spices. ???Eat fresh or plain frozen vegetables. These have much less salt than canned vegetables. ??? Choose low-sodium snacks such as sodium-free pretzels, crackers, or air-popped popcorn. ??? Don???t add salt to your food when you???re cooking. Instead, season your foods with pepper, lemon, garlic, or onion. ??? When you eat out, ask that your food be cooked without added salt. ??? Don't eat fried foods as these often have a great deal of salt. ??? Talk with your healthcare provider before using salt substitutes. They often contain potassium and may not be good for your health. This will depend on how well your kidneys are working and what medicines you???re taking. Some people need extra potassium, but others don???t. ?? If you???re told to limit fluids In some cases, you may need to limit how much fluid you consume to help prevent swelling. This includes anything that is liquid at room temperature, such as ice cream and soup. If your healthcare provider tells you to limit fluid, try these tips: ??? Measure drinks in a measuring cup before you drink them. This will help you meet daily goals. ??? Chill drinks to make them more refreshing. ??? Suck on frozen lemon wedges to quench thirst. ??? Only drink when you???re thirsty. ??? Chew sugarless gum or suck on sugarless hard candy to keep your mouth moist. ??? Weigh yourself daily to know if your body's fluid content is rising. ?? My sodium goal Your healthcare provider may give you a sodium goal to meet each day. This includes sodium found infood as well as salt that you add. My goal is to eat no more than mg of sodium per day. ?? When to call your healthcare provider Call your provider right away if you have any symptoms of worsening heart failure. These can include: ??? Sudden weight gain ??? Increased swelling of your legs or ankles ??? Mild trouble breathing when you???re resting or at night ??? Increase in the number of pillows you have to sleep on or feeling the need to sleep upright in a chair ??? Dry hacking cough ??? No energy or feeling more tired ?? Call 911 Call 911 if any of these occur: ??? Chest pain ??? Pressure, discomfort, or pain in the jaw, neck, or back ??? A lot of trouble breathing, either at rest or with activity ??? Abnormally fast pulse or pounding heartbeat ??? Faintingor severe dizziness ??? Confusion or can't think clearly ?? Last Reviewed Date: 2023 ?? [employer]. All rights reserved. This information is not intended as a substitute for professional medical care. Always follow your healthcare professional's instructions. ?? * Event Display: Hemodynamic Procedure Report Authored Date: Admission evaluation note * Diamond QUINTANILLA, Janice Dsouza: MODIFY Janice Fields MD: MODIFY, LUPE ANDRADE MD, Arya Guidry: MODIFY Event Display: Admission Note Authored Date: [id number] Patient: ??GOYO CHANDLER ? Age:??88 Years?Sex:??Female?:??1935??History of Present Illness/Interval History 88-year-old female with a past medical history of Takotsubo cardiomyopathy [diagnosed in November 2015after she presented with NSTEMI, cardiac catheterization at that time revealed ostial D1 40%, otherwise minimal luminal irregularities] now with recovered LVEF, COPD, hypertension, history of CVA presenting to the emergency room on September 21 with complaints of exertional dyspnea over the last 2 weeks and bradycardia.?? In speaking to the patient, she tells me that she was in her usual state of health until about 2 weeks ago when she started experiencing a dry cough. ??As a result she went to the urgent care??where she was diagnosed with a pneumonia and as such was given a course of azithromycin which did not lead to any improvement in her symptoms.?? Unfortunately the last 7 to 10 days shehas been experiencing more generalized fatigue??and tiredness??which prompted her to go to the urgent care again today. ??When we placed the??pulse oximeter on her, she was noted to be bradycardic inthe 40s.?? She reportedly had a chest x-ray done which showed evidence of fluid in her lungs and as such she was referred to??the emergency room.?? She tells me that she has had no presyncope, syncopal episodes, no complaints of chest pain or chest comfort,??no increased dosages of beta-abbie, no particular bites or??adventures in the kothari.?? She is able to function well at home in fact,??she was painting her granddaughters??bedroom for the last 2 weeks however??had just experience??tiredness and lethargy while doing this. ?? ER course: Blood pressure 162/58 heart rate 45 beats minute saturating 95% on room air.?? Afebrile. WBC 8 hemoglobin 12 platelet 148 Sodium 135 potassium 3.5 chloride 97 bicarb 23 anion gap 15 BUN 25 creatinine 1.23 High-sensitivity troponin 37, 30, 35, 98 EKG sinus bradycardia 44 bpm, right bundle branch block, artifact noted on EKG however possible 2:1AV block ??CT angio chest: Moderate bilateral pleural effusions with some atelectasis and some faint GGO's in several areas.?? Overall appearance may be consistent with CHF. Review of Systems Negative except for above Physical Exam Vitals & Measurements T:??97.7?F?? HR:??38??(Peripheral)?? RR:??16?? BP:??166/55?? SpO2:??98%?? HT:??160??cm?? WT:??62??kg?? BMI:??24.22?? Weight lb/oz: 136 lb 11 oz Constitutional: Alert, in no distress. Mental Status: Oriented to person, place and time. Head: Normocephalic. Eyes: Pupils are equal, round and reactive to light. Extraocular muscles intact. Ear, Nose and Throat: Oropharynx clear, mucous membranes moist. Ears and nose without masses, lesions or deformities. Trachea midline. Neck: Supple, Full range of motion., ??No JVD Respiratory: Decreased air entry at the bases,??faint crackles appreciated??at the lower zones. Cardiovascular: S1 S2 regular. No murmurs, rubs or gallops. Gastrointestinal: Abdomen soft, non-tender, non-distended. Normal bowel sounds. No pulsatile mass. No hepatosplenomegaly. Genitourinary: No costovertebral angle tenderness. Neurologic: Cranial nerves II-XII grossly intact. No focal neurological deficits. Flexor plantar response. Moves all extremities spontaneously. Sensation intact bilaterally. Skin: No rashes or lesions. No petechiae or purpura.?? Musculoskeletal: No cyanosis or clubbing. No gross deformities. Normal range of motion.?? Trace lower extremity edema of the lower leg leg??compared to the right. Heme/Lymphatics/Immun: Palpation of neck reveals no swelling or tenderness of neck nodes. Palpationof groin reveals no swelling or tenderness of groin nodes. Psychiatric: Normal mood and affect Assessment/Plan This 88-year-old female with a past medical history of Takotsubo cardiomyopathy with nonobstructiveCAD in 2016, now with recovered LVEF, history of COPD, hypertension, history of CVA in the past presenting to the emergency room with complaints of lethargy and tiredness and a dry cough.?? Her EKG reveals 2-1 AV block, imaging of the chest revealed moderate bilateral pleural effusions with faint groundglass opacifications.?? Her high-sensitivity troponin is elevated however there is no evidence of NSTEMI and her NT proBNP is elevated at 4900.?? She has evidence of heart failure clinically and new 2-1 AV block.?? As such she will require IV diuresis and an electrophysiology consultation for possible pacemaker placement.?? Will continue to hold her metoprolol and continue with IV diuresis and replenishment of any electrolyte abnormalities. ?? Problem list ?? 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 -Needs IV diuresis with Lasix 40 mg IV twice daily -Check basic metabolic panel and electrolytes twice daily -Daily weights -Strict I's and O's -Obtain a transthoracic echo -Will need an EP evaluation for consideration of PPM -Hold home metoprolol for now given bradycardia -Continue telemetry -No need for transvenous pacing at this moment -Check TSH with morning labs ?? Hypertension [I10] -Resume home amlodipine -Resume home valsartan 320 mg daily.?? Patient was previously on valsartan HCTZ combination howeverwill hold the HCTZ portion given the administration of IV loop diuretics for now. ?? Elevated troponin [R79.89] -Presentation not in keeping with ACS -No need for anticoagulation ?? Hypokalemia [E87.6] -Replenished with 40 mEq p.o. now and check daily with daily magnesium ?? History of CVA [I63.9] -Resume home aspirin and statin ?? Left leg swelling [M79.89] -Possibly related to heart failure however D-dimer noted to be elevated.?? CTA of the chest negative for PE however will obtain a left lower extremity Doppler ultrasound to rule out DVT. ?? COPD [G44.9] -Breo Ellipta -As needed albuterol ?? Diet: Cardiac DVT: Lovenox Disposition: Home CODE STATUS full ??Thank you for allowing us to participate in the care of this patient. ?? The above note was prepared with the help of voice recognition software. Please excuse any grammatical or spelling errors that may have occurred. ??Arya Bryant [id number] Case D/W Allergies NKA Home Medications Albuterol: 90 mcg, Inhalation, 4 times a day, PRN (Wheezing/Shortness of Breath) Amlodipine: 1 tablet, By Mouth, Daily Aspirin: 81 mg, By Mouth, Daily Atorvastatin: 40 mg = 1 tablet, By Mouth, Daily in AM Budesonide-Formoterol: 2 puffs, Inhalation, 2 times a day Calcium Carbonate: By Mouth Hydrochlorothiazide-Valsartan Lorazepam: 1 mg, Daily Metoprolol: 50 mg = 1 tablet, By Mouth, Daily Montelukast: 10 mg = 1 tablet, By Mouth, Daily at bedtime Multivitamin: By Mouth, Daily Omeprazole: 40 mg, By Mouth, Daily Pt.'s Own Meds: calcium 600mg, By Mouth, Daily torsemide: 10 mg = 1 tablet, By Mouth, Every 48 hours umeclidinium: 62.5 mcg = 1 inhalation, Inhalation, Every 24 hours, doses should be taken at least 24 hours apart Hospital Medications Medications (20) Active SCHEDULED: (11) Amlodipine 5 mg Tablet (amLODIPine 5 mg oral tablet) ??5 mg, By Mouth, Daily Aspirin 81 mg EC Tablet (aspirin 81 mg oral delayed release tablet) ??81 mg, By Mouth, Daily Atorvastatin 40 mg Tablet (atorvastatin 40 mg oral tablet) ??40 mg, By Mouth, Daily in AM Breo Ellipta 100 mcg / 25 mcg Inhaler (Breo Ellipta 100 mcg-25 mcg Inhaler) ??1 puffs, Inhalation, Daily Enoxaparin 40 mg Inj (Enoxaparin Inj) ??40 mg 0.4 mL, Subcutaneous Injection, Daily Furosemide Inj (Lasix ??Inj) ??40 mg 4 mL, IV Push Slowly, 2 times a day Montelukast 10 mg Tablet (montelukast 10 mg oral tablet) ??10 mg, By Mouth, Daily at bedtime NaCl 0.9% Flush 3ml (NaCL 0.9% Flush) ??3 mL, IV Push, Every 8 hours Pantoprazole 40 mg EC Tablet (pantoprazole 40 mg oral delayed release tablet) ??40 mg, By Mouth, Daily Potassium Chloride 10mEq ER Tablet (potassium chloride 10 mEq oral tablet, extended release) ??40 mEq, By Mouth, Once Valsartan 160 mg Tablet (valsartan 160 mg oral tablet) ??320 mg, By Mouth, Daily CONTINUOUS: (0) PRN: (9) Acetaminophen 325 mg Tablet (Acetaminophen Tablet) ??650 mg, By Mouth, Every 4 hours Albuterol 0.083% Inhalation Solution (Albuterol 0.083% inhalation caleb) ??2.5 mg 3 mL, BAND Nebulizer, Every 4 hours Dextromethorphan-Guaifenesin 20 mg-200 mg/10 mL Liqu UD (Robitussin DM Liquid) ??10 mL, By Mouth, Every 4 hours Docusate Sodium 100 mg Capsule (Docusate Sodium Capsule) ??100 mg 1 capsule, By Mouth, 2 times a day Melatonin 3 mg Tablet (Melatonin Tablet) ??3 mg, By Mouth, Daily at bedtime NaCl 0.9% Flush 3ml (NaCL 0.9% Flush) ??3 mL, IV Push, Every 8 hours Polyethylene Glycol 17 Gm Powder (MiraLax Powder) ??17 Gm 1 pack/packet, By Mouth, Daily Senna Tablet ??8.6 mg 1 tablet, By Mouth, 2 times a day Simethicone 80 mg Chewable Tablet (Simethicone Tablet) ??80 mg, Chew, 3 times a day Lab Results Cardiology Labs Blood Count & Diff?? General Chemistry?? WBC: 8.3 k/mm3 (09/21/24) Sodium: 135 mmol/L (09/21/24) RBC:??3.89 m/mm3??Low (09/21/24) Potassium:??3.5 mmol/L??Low (09/21/24) Hgb: 12 Gm/dL (09/21/24) Chloride:??97 mmol/L??Low (09/21/24) Hct:??35.5 %??Low (09/21/24) Bicarbonate Level: 23 mmol/L (09/21/24) MCV: 91.3 femtoliters (09/21/24) Anion Gap: 15 mmol/L (09/21/24) Platelet Count: 248 k/mm3 (09/21/24) Glucose Level:??122 mg/dL??High (09/21/24) ?? BUN:??25 mg/dL??High (09/21/24) ?? Creatinine-Blood:??1.23 mg/dL??High (09/21/24) ?? Estimated GFR Creatinine: 43 ML/MIN/1.73 M2 (09/21/24) ?? Calcium: 8.9 mg/dL (09/21/24) Diagnostic Impression ECG ECG 12-Lead * Preliminary * ?? 10:22:28 Ventricular Rate: 44 BPM Atrial Rate: 44 BPM P-R Interval: 198 ms QRS Duration: 134 ms Q-T Interval: 540 ms QTC Calculation(Bazett): 461 ms P [place]: 51 degrees R [place]: 259 degrees T [place]: -5 degrees Marked sinus bradycardia Right bundle branch block Inferior infarct (cited on or before 13-May-2021) Anteroseptal infarct , age undetermined Abnormal ECG When compared with ECG of 03-Oct-2022 14:51, Vent. rate has decreased by 21 bpm Anteroseptal infarct is now Present ??[place]: , ?? ECG 12-Lead * Preliminary * ?? 10:22:28 Please click on pdf link to open report Stress Test No qualifying data available. Echo Echocardiogram - Complete ?? 08:09:52 Summary The left ventricular size is normal. The left ventricular wall thickness is mildly increased. Hyperdynamic LV systolic function. Ejection fraction is >70%. There are no regional wall motion abnormalities. There is no doppler evidence of increased filling pressures. Trileaflet aortic valve. The aortic valve appears mildly thickened. There is no aortic stenosis. There is trace mild aortic regurgitation. There is an epicardial fat pad present. There is a trivial circumferential pericardial effusion. There is no evidence of cardiac tamponade. ?? Comparison Comparison is made to the study report of December 28, 2015. LV function is more vigorous. Trivial small pericardial effusion is noted. ??Signature ?? Signed By: Ramona Mark MD Problem List/Past Medical History Ongoing CVA (cerebrovascular accident) NSTEMI (non-ST elevated myocardial infarction) Preop cardiovascular exam Takotsubo cardiomyopathy Procedure/Surgical History Cardiac catheterization: 11/23/15 Total laparoscopic hysterectomy and bilateral salpingo-oophorectomy performed by Dr. Augustin Canales.: 01/02/12 Anterior colporrhaphy with plication technique, transobturator midurethral sling procedure with Monarc technique, bilateral sacrospinous ligament fixation with an anterior approach, cystourethroscopy: 01/02/12 Social History Alcohol Frequency: 1-2 times per week. Type: Wine. Alcohol use in household: Yes. 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 Exercise Self assessment: Good condition. Home/Environment Living situation: Home/Independent. Lives with: Spouse. Nutrition/Health Diet: Low sodium. Substance Abuse Use: Never. Tobacco Never smoker Family History No family history recorded. * Diamond QUINTANILLA, Janice Dsouza: PERFORM Event Display: Admission Note Authored Date: I saw and examined the patient??independently on the day of service.?? I have discussed the case and its management with the fellow??as documented in the note on the day of service.?? I agree with the fellow's note and plan as documented. EKG study * Event Display: ECG 12-Lead Authored Date: Please click on pdf link to open report * Event Display: ECG 12-Lead Authored Date: Ventricular Rate: 50 BPM Atrial Rate: 50 BPM P-R Interval: 204 ms QRS Duration: 154 ms Q-T Interval: 542 ms QTC Calculation(Bazett): 494 ms P [place]: -6 degrees R [place]: 259 degrees T [place]: 26 degrees Sinus bradycardia Right bundle branch block Septal infarct (cited on or before 21-Sep-2024) Possible Lateral infarct (cited on or before 21-Sep-2024) Abnormal ECG When compared with ECG of 21-Sep-2024 10:22, Nonspecific T wave abnormality has replaced inverted T waves in Inferior leads Confirmed by Misael Marcelo ([id number]) on 09/23/2024 4:01:53 PM [place]: Misael Marcelo * Event Display: ECG 12-Lead Authored Date: Please click on pdf link to open report * Event Display: ECG 12-Lead Authored Date: Ventricular Rate: 44 BPM Atrial Rate: 44 BPM P-R Interval: 198 ms QRS Duration: 134 ms Q-T Interval: 540 ms QTC Calculation(Bazett): 461 ms P [place]: 51 degrees R [place]: 259 degrees T [place]: -5 degrees Marked sinus bradycardia Right bundle branch block Inferior infarct (cited on or before 13-May-2021) Anteroseptal infarct , age undetermined Abnormal ECG When compared with ECG of 03-Oct-2022 14:51, Vent. rate has decreased by 21 bpm Anteroseptal infarct is now Present Confirmed by JANICE YEN MD ([id number]) on 09/21/2024 7:21:02 PM [place]: JANICE YEN MD Heart * Event Display: Echocardiogram - Complete Authored Date: Transthoracic Echocardiography Report (TTE) Patient Demographics Patient Name GOYO CHANDLER Date of Study 09/22/2024 Corporate Gender Female Facility Race .[id number] Ethnicity Date of 1935 Height: 62.99 inches Age 88 year(s) Weight: 136.69 pounds Accession Number [id number] BSA: 1.64 m2 Room Number [id number] BMI: 24.22 kg/m2 Referring Elodia Guidry MD Interpreting Kaylyn Dela Cruz MD Physician Physician Contact Lens Inspector Jhonatan Contreras [facility] Indications Heart failure. Clinical History Cardiomyopathy NSTEMI (2016) Study Data Type of Study TTE procedure:Echo Complete-Doppler, Colorflow, M-Mode. Study Date09/22/2024 Start Time: 10:07 AM Study Location: [facility] [place] Adult Echo Study Status: Bedside Patient Status: Routine Technical Quality: Adequate due to body habitus. Blood Pressure:142/54 mmHg EKG: Sinus bradycardia HR: 43 bpm Allergies - Lisinopril. - Other allergy:(Zithromax). 2D Measurements LV Diastolic Dimension: 4.1 cm LV Systolic Dimension: 2.5 cm LV Septum Diastolic: 1.3 cm LV PW Diastolic: 1.3 cm AO Root Dimension: 3.3 cm LA Dimension: 4.8 cm LA ESV (BP):64.9 ml LVOT Stroke Volume: 97.17 ml LA ESV Index: 40 ml/m2 Stroke Volume Index59.25 ml/m2 LVOT: 2.3 cm Cardiac Index:2.55 l/min/m2 Ascending Aorta:3.5 cm Doppler Measurements AV Peak Velocity: 138 cm/s AV Peak Gradient: 7.62 mmHg LVOT Peak Velocity: 89.1 cm/s LVOT VTI23.4 cm PV Peak Velocity: 85.6 cm/s PV Peak Gradient: 2.93 mmHg Cardiac Anatomy Left Ventricle/Interventricular Septum The left ventricular size is normal. There is mild to moderate concentric left ventricular hypertrophy. Speckled pattern to the myocardium, consider infiltrative process. The LV systolic function is normal. The left ventricular ejection fraction is 65 %. There are no definite regional wall motion abnormalities. Unable to assess diastolic function. Left Atrium/Interatrial Septum The left atrium is dilated. Aortic Valve The aortic valve is trileaflet. There is trace aortic regurgitation. There is no aortic stenosis. Mitral Valve The mitral valve is normal in structure and function. There is no mitral stenosis or insufficiency. Aorta The ascending aorta and aortic root are normal in size. Right Ventricle The right ventricle is mildly dilated. Right ventricular systolic function is normal. Right Atrium The right atrium is normal in size. Pulmonic Valve The pulmonic valve is functionally normal. Tricuspid Valve The tricuspid valve is normal in structure and function. There is trace regurgitation. Pumonary Artery An accurate pulmonary artery pressure could not be obtained. Venous Structures The inferior vena cava appears normal. Pericardium/Extracardiac There is no significant pericardial effusion. There are bilateral pleural effusions. Summary The left ventricular size is normal. There is mild to moderate concentric left ventricular hypertrophy. Speckled pattern to the myocardium, consider infiltrative process. The LV systolic function is normal. The left ventricular ejection fraction is 65 %. There are no definite regional wall motion abnormalities. Unable to assess diastolic function. The right ventricle is mildly dilated. Right ventricular systolic function is normal. There is no significant pericardial effusion. There are bilateral pleural effusions. Comparison Comparison is made to the study of June 02, 2021. Report unavailable. Signature * Event Display: Echocardiogram - Complete Authored Date: Cardiology * Event Display: Cardiac Rhythm Strips Authored Date: * Event Display: Cardiac Rhythm Strips Authored Date: * Event Display: Cardiac Rhythm Strips Authored Date: Hospital Progress note * Marya Carrizales RN: PERFORM, SIGN, VERIFY Event Display: Progress Note Hospital Authored Date: Patient: GOYO CHANDLER Age: 88 years Sex: Female : 1935 Associated Diagnoses: None Author: Marya Carrizales RN Findings Problem Related to Alteration in Cardiac Function (new) : Alteration in Cardiac Function/new 09/24/2024 9:00 EST Alteration in Cardiac Status Related to Dysrhythmia, Heart failure Goals & Outcomes, Cardiac Status Pt will resume/maintain adequate cardiac output, Pt will resume/maintain adequate hemodynamic status, Pt will resume/maintain adequate respiratory function, Pt will resume/maintain intact neuro function, Pt will maintain adequate GI/ function appropriate for pt, Pt will maintain adequate nutrition status, Pt will convert to a stable rhythm, Heart rate control/rhythm is maintained Cardiac Interventions Implemented Assess/monitor cardiac status, Assess/monitor respiratory status,Assess for tolerance of IV infusions; verify rate & dose, Call/Report variances in ECG to provider, Ensure adequate caloric intake, If no bowel movement in 3 days activate bowel regime, Monitor & document daily weight, Monitor anticoagulation values, Monitor ECG w/administration of antiarrhythmics (CO 13.420), Obtain 12 Lead ECG and CXR as ordered, Prep pt for treatments & procedures,Teach/encourage deep breath & cough exercises BH Goals/Interventions, Cardiac Yes Cardiac, Problem Start 09/22/2024 2:30 Reviewed Plan with, Cardiac Status Patient Patient Progression, Cardiac Status Patient progressing according to plan . Nursing Data Vital Signs : VITAL SIGNS SECTION 09/24/2024 7:46 EST Temperature 98.2 DegF Temperature Route Oral Pulse Rate 94 bpm H Respiratory Rate 20 br/min Systolic Blood Pressure 132 mm Hg Diastolic Blood Pressure 62 mm Hg Blood pressure sites Arm, left Mean Arterial Pressure 85 mm Hg Pulse Pressure 70 mm Hg Oxygen Saturation 98 % Mode of Delivery (Oxygen) Room air . Narrative/Incidental Pt is alert and oriented x3, paced on tele, on room air. OOB 1 assist with walker. LBM 09/21. Xray done this AM to confirm pacemaker placement. Plan to discharge pt home, at bedside, discharge pending, call servin within reach.... * Perez Mcneal: PERFORM Event Display: Progress Note Hospital Authored Date: Patient: ??GOYO CHANDLER ? Age:??88 Years?Sex:??Female?:??1935?? History of Present Illness/Interval History Patient seen and examined at bedside HD stable No acute overnight event Review of Systems 12 point review of symptoms as noted in the??HPI and reviewed in detail with the patient; pertinentpositives noted otherwise??negative. Physical Exam Vitals & Measurements T:??98.2?F?? HR:??94??(Peripheral)?? RR:??20?? BP:??132/62?? SpO2:??98%?? HT:??160??cm?? WT:??58.2??kg?? BMI:??23.87?? Weight lb/oz: 128 lb 5 oz Gen: well appearing, NAD HEENT: mmm, no oral exudates Neck: Normal JVD CV: rrr, no m/r/g Abd: soft, NT, ND Lungs/chest: normal breath sounds, no crackles or wheezes Extremities: no pitting edema, 2+ pulses Neuro: moving all 4 extremities spontaneously Skin: no rash Assessment/Plan 88-year-old female past medical history of Takotsubo cardiomyopathy now recovered, COPD, hypertension, CVA, and hyperlipidemia who presents emergency department complaining of exertional symptoms over the past 2-week.?? She also reports bradycardia.?? Few weeks back she developed a dry cough and she was diagnosed with pneumonia which she was treated with antibiotic.?? About 10 days ago, she started experiencing fatigue and tiredness and decided to go to urgent care for?? evaluation.?? During vital sign check, she was found to be bradycardic with a heart rate in the low's 40s.?? Eventually, she was recommended to come to the emergency department for evaluation.?? Upon arrival to ED, she was hypertensive and bradycardic.?? EKG was consistent with 2-1 AV block with a heart rate in the low 40s ?? Plan: 1. 2-1 AV block -Telemetry and EKG are consistent with??2-1 AV block??with a heart rate in the low 40s.?? - Patient underwent [employer] pacemaker. Post procedure hospitalization was uneventful. Tele revealed paced rhythm, and patient ??denied chest pain, shortness of breath, headache, palpitations, all other systems were reviewed and negative. Chest X-Day showed proper leads and device placement with no signs of pneumothorax. Device interrogation showed normal functioning??with no new events. ??I discussed with patient??device functioning and post care??instructions. She will follow-up??in the Device clinic for wound check within??2 weeks. ? Thank you for allowing us to participate in the care of this patient. EP will sign off at this time. Please call if any questions/concerns or further services needed. ?? Patient seen and discussed with . ?? Perez Duke PA-C Cardiac Electrophysiology ?? I personally spent a total of??50 minutes, including both [id number] and [id number]-ik-face time onthe date of the encounter, addressing the above diagnoses, and answering all questions.? Available by [employer].?? Please note that this document was generated with the assistance of??NATHALY?voice recognition technology, and may contain vocabulary/syntax errors.?Please do not hesitate to contact me in case of any questions or concerns? Problem List/Past Medical History Ongoing CVA (cerebrovascular accident) NSTEMI (non-ST elevated myocardial infarction) Preop cardiovascular exam Takotsubo cardiomyopathy Procedure/Surgical History Cardiac catheterization: 11/23/15 Anterior colporrhaphy with plication technique, transobturator midurethral sling procedure with Monarc technique, bilateral sacrospinous ligament fixation with an anterior approach, cystourethroscopy: 01/02/12 Total laparoscopic hysterectomy and bilateral salpingo-oophorectomy performed by Dr. Augustin Canales.: 01/02/12 Hospital Medications Medications (18) Active SCHEDULED: (9) Amlodipine 5 mg Tablet (amLODIPine 5 mg oral tablet) ??5 mg, By Mouth, Daily Aspirin 81 mg EC Tablet (aspirin 81 mg oral delayed release tablet) ??81 mg, By Mouth, Daily Atorvastatin 40 mg Tablet (atorvastatin 40 mg oral tablet) ??40 mg, By Mouth, Daily in AM Breo Ellipta 100 mcg / 25 mcg Inhaler (Breo Ellipta 100 mcg-25 mcg Inhaler) ??1 puffs, Inhalation, Daily CeFAZolin 2 Gm Inj (ceFAZolin Inj) ??2 Gm, IV Push, golf club head former to Procedure Enoxaparin 40 mg Inj (Enoxaparin Inj) ??40 mg 0.4 mL, Subcutaneous Injection, Daily Montelukast 10 mg Tablet (montelukast 10 mg oral tablet) ??10 mg, By Mouth, Daily at bedtime NaCl 0.9% Flush 3ml (NaCL 0.9% Flush) ??3 mL, IV Push, Every 8 hours Pantoprazole 40 mg EC Tablet (pantoprazole 40 mg oral delayed release tablet) ??40 mg, By Mouth, Daily CONTINUOUS: (0) PRN: (9) Acetaminophen 325 mg Tablet (Acetaminophen Tablet) ??650 mg, By Mouth, Every 4 hours Albuterol 0.083% Inhalation Solution (Albuterol 0.083% inhalation caleb) ??2.5 mg 3 mL, BAND Nebulizer, Every 4 hours Dextromethorphan-Guaifenesin 20 mg-200 mg/10 mL Liqu UD (Robitussin DM Liquid) ??10 mL, By Mouth, Every 4 hours Docusate Sodium 100 mg Capsule (Docusate Sodium Capsule) ??100 mg 1 capsule, By Mouth, 2 times a day Melatonin 3 mg Tablet (Melatonin Tablet) ??3 mg, By Mouth, Daily at bedtime NaCl 0.9% Flush 3ml (NaCL 0.9% Flush) ??3 mL, IV Push, Every 8 hours Polyethylene Glycol 17 Gm Powder (MiraLax Powder) ??17 Gm 1 pack/packet, By Mouth, Daily Senna Tablet ??8.6 mg 1 tablet, By Mouth, 2 times a day Simethicone 80 mg Chewable Tablet (Simethicone Tablet) ??80 mg, Chew, 3 times a day Lab Results Cardiology Labs Blood Count & Diff?? General Chemistry?? Cardiac?? WBC: 9.3 k/mm3 (09/24/24) Sodium: 139 mmol/L (09/24/24) Bilirubin, Total: 0.9 mg/dL (09/23/24) RBC:??3.95 m/mm3??Low (09/24/24) Potassium:??3.1 mmol/L??Low (09/24/24) ?? Hgb: 12.2 Gm/dL (09/24/24) Chloride: 100 mmol/L (09/24/24) ?? Hct: 35.8 % (09/24/24) Bicarbonate Level: 24 mmol/L (09/24/24) ?? MCV: 90.6 femtoliters (09/24/24) Anion Gap: 15 mmol/L (09/24/24) ?? Platelet Count: 204 k/mm3 (09/24/24) Glucose Level:??104 mg/dL??High (09/24/24) ? BUN: 23 mg/dL (09/24/24) ? Creatinine-Blood:??1.23 mg/dL??High (09/24/24) ? Estimated GFR Creatinine: 43 ML/MIN/1.73 M2 (09/24/24) ? Calcium: 8.8 mg/dL (09/24/24) ? Magnesium: 2 mg/dL (09/23/24) ? Protein, Total: 6.2 Gm/dL (09/23/24) ? Albumin: 3.7 Gm/dL (09/23/24) ? Alkaline Phosphatase: 71 units/L (09/23/24) ? AST (SGOT):??35 units/L??High (09/23/24) ? ALT (SGPT):??51 units/L??High (09/23/24) ?? Diagnostic Impression ECG ECG 12-Lead ?? 09:06:41 Please click on pdf link to open report ?? Signed By: Misael Marcelo MD ?? ECG 12-Lead ?? 09:06:41 Ventricular Rate: 50 BPM Atrial Rate: 50 BPM P-R Interval: 204 ms QRS Duration: 154 ms Q-T Interval: 542 ms QTC Calculation(Bazett): 494 ms P [place]: -6 degrees R [place]: 259 degrees T [place]: 26 degrees Sinus bradycardia Right bundle branch block Septal infarct (cited on or before 21-Sep-2024) Possible Lateral infarct (cited on or before 21-Sep-2024) Abnormal ECG When compared with ECG of 21-Sep-2024 10:22, Nonspecific T wave abnormality has replaced inverted T waves in Inferior leads Confirmed ?? Signed By: Fozia QUINTANILLA, Misael Julio Stress Test No qualifying data available. Echo Echocardiogram - Complete ?? 10:07:06 Summary The left ventricular size is normal. There is mild to moderate concentric left ventricular hypertrophy. Speckled pattern to the myocardium, consider infiltrative process. The LV systolic function is normal. The left ventricular ejection fraction is 65 %. There are no definite regional wall motion abnormalities. Unable to assess diastolic function. The right ventricle is mildly dilated. Right ventricular systolic function is normal. There is no significant pericardial effusion. There are bilateral pleural effusions. ?? Comparison Comparison is made to the study of June 02, 2021. Report unavailable. ?? Signature ?? Signed By: Lanie QUINTANILLA, Marya Gtz RN: PERFORM, SIGN, VERIFY, MODIFY, SIGN Event Display: Progress Note Hospital Authored Date: [id number] Patient: OGYO CHANDLER Age: 88 years Sex: Female : 1935 Associated Diagnoses: None Author: Marya Carrizales RN Findings Problem Related to Alteration in Cardiac Function (new) : Alteration in Cardiac Function/new 09/23/2024 10:00 EST Alteration in Cardiac Status Related to Dysrhythmia, Heart failure Goals & Outcomes, Cardiac Status Pt will resume/maintain adequate cardiac output, Pt will resume/maintain adequate hemodynamic status, Pt will resume/maintain adequate respiratory function, Pt will resume/maintain intact neuro function, Pt will maintain adequate GI/ function appropriate for pt, Pt will maintain adequate nutrition status, Pt will convert to a stable rhythm, Heart rate control/rhythm is maintained Cardiac Interventions Implemented Assess/monitor cardiac status, Assess/monitor respiratory status,Call/Report variances in ECG to provider, Document & Monitor O2 Sats; Administer O2 as ordered,Ensure adequate caloric intake, If no bowel movement in 3 days activate bowel regime, Monitor &document daily weight, Monitor anticoagulation values, Monitor ECG w/administration of antiarrhythmics (CO 13.420), Obtain 12 Lead ECG and CXR as ordered, Prep pt for treatments & procedures, Teach/encourage deep breath & cough exercises Goals/Interventions, Cardiac Yes Cardiac, Problem Start 09/22/2024 2:30 Reviewed Plan with, Cardiac Status Patient Patient Progression, Cardiac Status Patient progressing according to plan . Nursing Data Vital Signs : VITAL SIGNS SECTION 09/23/2024 14:01 EST Early Warning Score 0.00 09/23/2024 14:01 EST Temperature 98.5 DegF Temperature Route Temporal Pulse Rate 96 bpm H Respiratory Rate 19 br/min Systolic Blood Pressure 147 mm Hg H Diastolic Blood Pressure 72 mm Hg Blood pressure sites Arm, left Mean Arterial Pressure 97 mm Hg Pulse Pressure 75 mm Hg Oxygen Saturation 97 % Mode of Delivery (Oxygen) Room air . Narrative/Incidental Pt is alert and oriented x3, paced on tele, on room air, oob standby with walker. Was 2nd degree avblock type 2 this am on tele, MD notified, pt asymptomatic, brought down to ep lab right after... Had pacemaker placed this AM, dressing to left anterior chest clean dry intact, no site pain. LBM 2/8, voiding in toilet. Continues on 40 mg iv lasix bid. Pt resting comfortably, no concerns, call bellwithin reach... Consult note * Perez Mcneal: PERFORM Event Display: Consultation Note Authored Date: Patient: ??GOYO CHANDLER ? Age:??88 Years?Sex:??Female?:??1935?? Indication for Consult [facility] -Electrophysiology Consultation Note ?? Consult Requesting Physician: Dr. Ibarra Consulting Digital Solution Architect: Dr Celestin Primary Digital Solution Architect: Consult Reason:??2-1 AV block History of Present Illness/Interval History This is a 88-year-old female past medical history of Takotsubo cardiomyopathy now recovered, COPD, hypertension, CVA, and hyperlipidemia who presents emergency department complaining of exertional symptoms over the past 2-week.?? She also reports bradycardia.?? Few weeks back she developed a dry cough and she was diagnosed with pneumonia which she was treated with antibiotic.?? About 10 days ago,she started experiencing fatigue and tiredness and decided to go to urgent care for?? evaluation.??During vital sign check, she was found to be bradycardic with a heart rate in the low's 40s.?? Eventually, she was recommended to come to the emergency department for evaluation.?? Upon arrival to ED, she was hypertensive and bradycardic.?? EKG was consistent with 2-1 AV block with a heart rate in the low 40s.?? Given this finding, EP was consulted for further evaluation.?? During my physical examination, patient was lying in bed.?? Denies any active symptoms.?? On telemetry rhythm is consistent with 2 1 AV block. Review of Systems 12 point review of symptoms as noted in the??HPI and reviewed in detail with the patient; pertinentpositives noted otherwise??negative. Physical Exam Vitals & Measurements T:??98.1?F?? HR:??65??(Peripheral)?? RR:??16?? BP:??144/87?? SpO2:??95%?? HT:??160??cm?? WT:??59.4??kg?? BMI:??23.87?? Weight lb/oz: 130 lb 15 oz Gen: well appearing, NAD HEENT: mmm, no oral exudates Neck: Normal JVD CV: rrr, no m/r/g Abd: soft, NT, ND Lungs/chest: normal breath sounds, no crackles or wheezes Extremities: no pitting edema, 2+ pulses Neuro: moving all 4 extremities spontaneously Skin: no rash Intake and Output Today's Output Total?300?? Today's Urine Voided?300?? Today's Balance? -300?? Yesterday's Intake Total?580?? Yesterday's Output Total? 1000?? Yesterday's Urine Voided? 1000?? Yesterday's Balance? -420?? Clinical Range's Intake Total?820?? Clinical Range's Output Total? 1300?? Clinical Range's Total Urine Voided? 1300?? Clinical Range's Balance ? -480?? Assessment/Plan 88-year-old female past medical history of Takotsubo cardiomyopathy now recovered, COPD, hypertension, CVA, and hyperlipidemia who presents emergency department complaining of exertional symptoms over the past 2-week.?? She also reports bradycardia.?? Few weeks back she developed a dry cough and she was diagnosed with pneumonia which she was treated with antibiotic.?? About 10 days ago, she started experiencing fatigue and tiredness and decided to go to urgent care for?? evaluation.?? During vital sign check, she was found to be bradycardic with a heart rate in the low's 40s.?? Eventually, she was recommended to come to the emergency department for evaluation.?? Upon arrival to ED, she was hypertensive and bradycardic.?? EKG was consistent with 2-1 AV block with a heart rate in the low 40s ?? Plan: 1. 2-1 AV block -Telemetry and EKG are consistent with??2-1 AV block??with a heart rate in the low 40s.?? Given herdegree of conduction disease, this patient will benefit from pacemaker implant. - Risk, benefits, and alternatives to pacemaker/ICD implantation??were discussed including??less than 3% of bleeding, infection, thromboembolism near the pacemaker site, pneumothorax, and movements of the device or leads with less than 1% risk of stroke, heart attack or .?Patient verbalizedagreement and understanding. Questions encouraged and answered. Consent obtained. -Plan for pacemaker implant today. ? Thank you for allowing us to participate in the care of this patient. Patient seen and discussed with Dr. Celestin. ?? Perez Duke PA-C Cardiac Electrophysiology ?? I personally spent a total of??80 minutes, including both veow-pn-bkuh and vve-vsfi-kz-face time onthe date of the encounter, addressing the above diagnoses, and answering all questions.? Available by [employer].?? Please note that this document was generated with the assistance of??NATHALY?voice recognition technology, and may contain vocabulary/syntax errors.?Please do not hesitate to contact me in case of any questions or concerns?? Allergies NKA Home Medications Albuterol: 90 mcg, Inhalation, 4 times a day, PRN (Wheezing/Shortness of Breath) Amlodipine: 1 tablet, By Mouth, Daily Aspirin: 81 mg, By Mouth, Daily Atorvastatin: 40 mg = 1 tablet, By Mouth, Daily in AM Budesonide-Formoterol: 2 puffs, Inhalation, 2 times a day Calcium Carbonate: By Mouth Hydrochlorothiazide-Valsartan Lorazepam: 1 mg, Daily Metoprolol: 50 mg = 1 tablet, By Mouth, Daily Montelukast: 10 mg = 1 tablet, By Mouth, Daily at bedtime Multivitamin: By Mouth, Daily Omeprazole: 40 mg, By Mouth, Daily Pt.'s Own Meds: calcium 600mg, By Mouth, Daily torsemide: 10 mg = 1 tablet, By Mouth, Every 48 hours umeclidinium: 62.5 mcg = 1 inhalation, Inhalation, Every 24 hours, doses should be taken at least 24 hours apart Hospital Medications Medications (19) Active SCHEDULED: (10) Amlodipine 5 mg Tablet (amLODIPine 5 mg oral tablet) ??5 mg, By Mouth, Daily Aspirin 81 mg EC Tablet (aspirin 81 mg oral delayed release tablet) ??81 mg, By Mouth, Daily Atorvastatin 40 mg Tablet (atorvastatin 40 mg oral tablet) ??40 mg, By Mouth, Daily in AM Breo Ellipta 100 mcg / 25 mcg Inhaler (Breo Ellipta 100 mcg-25 mcg Inhaler) ??1 puffs, Inhalation, Daily CeFAZolin 2 Gm Inj (ceFAZolin Inj) ??2 Gm, IV Push, golf club head former to Procedure Enoxaparin 40 mg Inj (Enoxaparin Inj) ??40 mg 0.4 mL, Subcutaneous Injection, Daily Furosemide Inj (Lasix ??Inj) ??40 mg 4 mL, IV Push Slowly, 2 times a day Montelukast 10 mg Tablet (montelukast 10 mg oral tablet) ??10 mg, By Mouth, Daily at bedtime NaCl 0.9% Flush 3ml (NaCL 0.9% Flush) ??3 mL, IV Push, Every 8 hours Pantoprazole 40 mg EC Tablet (pantoprazole 40 mg oral delayed release tablet) ??40 mg, By Mouth, Daily CONTINUOUS: (0) PRN: (9) Acetaminophen 325 mg Tablet (Acetaminophen Tablet) ??650 mg, By Mouth, Every 4 hours Albuterol 0.083% Inhalation Solution (Albuterol 0.083% inhalation caleb) ??2.5 mg 3 mL, BAND Nebulizer, Every 4 hours Dextromethorphan-Guaifenesin 20 mg-200 mg/10 mL Liqu UD (Robitussin DM Liquid) ??10 mL, By Mouth, Every 4 hours Docusate Sodium 100 mg Capsule (Docusate Sodium Capsule) ??100 mg 1 capsule, By Mouth, 2 times a day Melatonin 3 mg Tablet (Melatonin Tablet) ??3 mg, By Mouth, Daily at bedtime NaCl 0.9% Flush 3ml (NaCL 0.9% Flush) ??3 mL, IV Push, Every 8 hours Polyethylene Glycol 17 Gm Powder (MiraLax Powder) ??17 Gm 1 pack/packet, By Mouth, Daily Senna Tablet ??8.6 mg 1 tablet, By Mouth, 2 times a day Simethicone 80 mg Chewable Tablet (Simethicone Tablet) ??80 mg, Chew, 3 times a day Lab Results Cardiology Labs Blood Count & Diff?? General Chemistry?? Cardiac?? WBC: 7.5 k/mm3 (09/23/24) Sodium: 138 mmol/L (09/23/24) Bilirubin, Total: 0.9 mg/dL (09/23/24) RBC:??3.96 m/mm3??Low (09/23/24) Potassium: 3.8 mmol/L (09/23/24) ?? Hgb: 12.2 Gm/dL (09/23/24) Chloride: 101 mmol/L (09/23/24) ?? Hct: 36.7 % (09/23/24) Bicarbonate Level: 24 mmol/L (09/23/24) ?? MCV: 92.7 femtoliters (09/23/24) Anion Gap: 13 mmol/L (09/23/24) ?? Platelet Count: 212 k/mm3 (09/23/24) Glucose Level:??103 mg/dL??High (09/23/24) ? BUN: 23 mg/dL (09/23/24) ? Creatinine-Blood:??1.24 mg/dL??High (09/23/24) ? Estimated GFR Creatinine: 42 ML/MIN/1.73 M2 (09/23/24) ? Calcium: 9.2 mg/dL (09/23/24) ? Magnesium: 2 mg/dL (09/23/24) ? Protein, Total: 6.2 Gm/dL (09/23/24) ? Albumin: 3.7 Gm/dL (09/23/24) ? Alkaline Phosphatase: 71 units/L (09/23/24) ? AST (SGOT):??35 units/L??High (09/23/24) ? ALT (SGPT):??51 units/L??High (09/23/24) ?? Diagnostic Impression ECG ECG 12-Lead ?? 10:22:28 Please click on pdf link to open report ?? Signed By: Janice Yen DO ?? ECG 12-Lead ?? 10:22:28 Ventricular Rate: 44 BPM Atrial Rate: 44 BPM P-R Interval: 198 ms QRS Duration: 134 ms Q-T Interval: 540 ms QTC Calculation(Bazett): 461 ms P [place]: 51 degrees R [place]: 259 degrees T [place]: -5 degrees Marked sinus bradycardia Right bundle branch block Inferior infarct (cited on or before 13-May-2021) Anteroseptal infarct , age undetermined Abnormal ECG When compared with ECG of 03-Oct-2022 14:51, Vent. rate has decreased by 21 bpm Anteroseptal infarct is now Present Confirmed ?? Signed By: Janice Yen DO Stress Test No qualifying data available. Echo Echocardiogram - Complete ?? 08:09:52 Summary The left ventricular size is normal. The left ventricular wall thickness is mildly increased. Hyperdynamic LV systolic function. Ejection fraction is >70%. There are no regional wall motion abnormalities. There is no doppler evidence of increased filling pressures. Trileaflet aortic valve. The aortic valve appears mildly thickened. There is no aortic stenosis. There is trace mild aortic regurgitation. There is an epicardial fat pad present. There is a trivial circumferential pericardial effusion. There is no evidence of cardiac tamponade. ?? Comparison Comparison is made to the study report of December 28, 2015. LV function is more vigorous. Trivial small pericardial effusion is noted. ?? Signature ?? Signed By: Ramona Mark MD Problem List/Past Medical History Ongoing CVA (cerebrovascular accident) NSTEMI (non-ST elevated myocardial infarction) Preop cardiovascular exam Takotsubo cardiomyopathy Procedure/Surgical History Cardiac catheterization: 11/23/15 Total laparoscopic hysterectomy and bilateral salpingo-oophorectomy performed by Dr. Augustin Canales.: 01/02/12 Anterior colporrhaphy with plication technique, transobturator midurethral sling procedure with Monarc technique, bilateral sacrospinous ligament fixation with an anterior approach, cystourethroscopy: 01/02/12 Social History Alcohol Frequency: 1-2 times per week. Type: Wine. Alcohol use in household: Yes. 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 Exercise Self assessment: Good condition. Home/Environment Living situation: Home/Independent. Lives with: Spouse. Nutrition/Health Diet: Low sodium. Substance Abuse Use: Never. Tobacco Never smoker Family History No family history recorded. Patient Care team information Care Team Personnel Name: Melina Bolaños RN Position: KENISHA CAMERON RN Member Role: Primary Care Nurse Name: Jhonny White Jr Position: Reference Physician Member Role: PCP Address: [address] [place] [address] [address] [facility] [address] Telecom: Care Team Related Persons Name: TRAN CHANDLERMOND Insurance Providers Guarantor name: GOYO RAMESH Armut Information #: 2 Payer: MEDICARE PART B OUTPT Member Number: [id number] Policy Number: NA Group Number: NA Health Plan Information #: 1 Payer: MEDICARE A INPT 25 Member Number: [id number] Policy Number: NA Group Number: NA Health Plan Information #: 3 Payer: ALICIA LANGLEY SUP Member Number: [id number] Policy Number: NA Group Number: NA Health Plan Information #: 4 Payer: ALICIA LANGLEY SUP Member Number: [id number] Policy Number: NA Group Number: NA
--- OUTSIDE RECORDS SUMMARY | 2024-09-26 13:47 | XMS_ITS | Clinical Summary ---
Author Organization [facility] Address [address] [place] [address] Care Team Providers Care [employer] Mechanic Name Role Phone Elvin Christianson MD Primary Care Provider [phone] Allergies No known active allergies Medications Medication Sig Dispensed Refills Start Date End Date Status albuterol (PROVENTIL) (2.5 MG/3ML) 0.083% nebulizer solution Inhale 2.5 mg into the lungs. 0 03/01/2019 Active amLODIPine (NORVASC) tablet 5 mg Take 5 mg by mouth daily. 0 04/21/2021 Active atorvastatin (LIPITOR) tablet 40 mg Take 40 mg by mouth daily. 0 09/16/2016 Active budesonide-formoter ol (SYMBICORT) 160-4.5 MCG/ACT inhaler Inhale 2 puffs into the lungs 2 (two) times a day. 0 12/28/2018 Active montelukast (SINGULAIR) 10 MG tablet Take 10 mg by mouth daily. 0 06/08/2016 Active omeprazole (PriLOSEC) 40 MG capsule Take 40 mg by mouth daily. 0 11/20/2021 Active Incruse Ellipta 62.5 MCG/INH AEPB 1 puff daily. 0 10/10/2021 Acti ve valsartan (DIOVAN) tablet 320 mg Take 320 mg by mouth daily. 0 09/16/2016 Active LORazepam (ATIVAN) 1 MG tablet Take 1 mg by mouth every night at bedtime as needed. 0 12/23/2021 Active torsemide (DEMADEX) 10 MG tablet Take 10 mg by mouth daily. 0 01/24/2022 Active MULTIPLE VITAMIN PO Take 1 tablet by mouth daily. 0 Active Calcium Carbonate-Vitamin D (CALTRATE 600+D PO) Take 1 tablet by mouth daily. 0 Active Probiotic Product (PROBIOTIC PO) Take 1 tablet by mouth daily. 0 Active Apoaequorin (PREVAGEN PO) Take 1 tablet by mouth daily. 0 Active psyllium (METAMUCIL) 58.6 % packet Take 1 packet by mouth 2 (two) times a day. 0 Active acetaminophen (TYLENOL EXTRA STRENGTH) 500 MG tablet Take 2 tablets (1,000 mg total) by mouth every 8 (eight) hours. 30 tablet 0 03/04/2022 Active aspirin EC 81 MG EC tablet Take 1 tablet (81 mg total) by mouth 2 (two) times a day after meals. 82 tablet 0 03/04/2022 Active methocarbamol (ROBAXIN) 750 MG tablet Take 1 tablet (750 mg total) by mouth every 6 (six) hours as needed. 40 tablet 0 03/04/2022 Active senna-docusate (PERICOLACE) 8.6-50 MG Take 1 tablet by mouth 2 (two) times a day. 20 tablet 0 03/04/2022 Active amoxicillin (AMOXIL) 500 MG tablet Take 4 tabs 1 hour prior to dental appointment 20 tablet 3 03/17/2022 Active oxyCODONE (ROXICODONE) 5 MG immediate release tablet Take 1 tab every 8-10 hours as needed for pain. May fill for lesser quantity. 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 Immunizations Name Administration Dates Next Due Covid-19 (City Voice) Dilution Required 11/13,06/04/2021,10/10/2020,09/19/19 21 Family History Medical History Relation Name Comments Cancer Father Cancer Mother Relation Name Status Comments Father Mother Social History Tobacco Use Types Packs/Day Years Used Date Smoking Tobacco: Never Smokeless Tobacco: Never Sex and Gender Information Value Date Recorded Sex Assigned at Female 02/18/2022 11:27 AM EDT Gender Identity Female 02/18/2022 11:27 AM EDT Sexual Orientation Not on file Job Start Date Occupation Industry Not on file Not on file Not on file Last Filed Vital Signs Vital Sign Reading Time Taken Comments Blood Pressure 131/73 03/04/2022 11:56 AM EDT Pulse 91 03/04/2022 11:56 AM EDT Temperature 36.6 ??C (97.8 ??F) 03/04/2022 7:56 AM ED T Respiratory Rate 16 03/04/2022 7:56 AM EDT Oxygen Saturation 99% 03/04/2022 7:56 AM EDT Inhaled Oxygen Concentration - - Weight 68 kg (149 lb 14.6 oz) 03/03/2022 10:11 A M EDT Height 160 cm (5' 3 ) 03/03/2022 10:11 AM EDT Body Mass Index 26.56 03/03/2022 10:11 AM EDT Plan of Treatment Health Maintenance Due Date Last Done Comments Depression Screening 1948 Preventative Health Evaluation 1954 DTap / Tdap / Td (1 - Tdap) 12/22/1955 Shingrix-Zoster Vaccine (1 of 2) 1986 Fall Risk Assessment 2001 Osteoporosis Screening (DEXA Scan) 2001 Pneumococcal Vaccine (1 of 1 - PCV) 2001 RSV Adult > 60+ Yrs or (1 - 1-dose 75+ series) 12/22/2011 COVID-19 Vaccine ( season) 2024 12/02/2021, 06/04/2021, 10/10/2020, Additional history exists Influenza Vaccine (#1) 2024 Hepatitis B Vaccines Aged Out No long er eligible based on patient's age to complete this topic RSV Ped < 20 months Aged Out No longe r eligible based on patient's age to complete this topic Medical Devices Implanted Type Area Voice Teacher Device Identifier Shelf Expiration Date Model / Serial / Lot Cement Bone Surg Simplex Radiopq Stry-Howm [id number] 092 - [id number] Implanted:Qty: 1 on 03/03/2022 by Mansoor Handley MD at [facility] Right: Knee [employer] 07/13/2023 6191-1-010 / / [id number] Cement Bone Surg Simplex Radiopq Stry-Howm [id number] 092 - [id number] Implanted:Qty: 1 on 03/03/2022 by Mansoor Handley MD at [facility] Right: Knee [employer] 07/13/2023 6191-1-010 / / [id number] Knee Fem Ps Trthln Sz 2 Rt Stry-Howm [id number] - [id number] Implanted:Qty: 1 on 03/03/2022 by Mansoor Handley MD at [facility] Right: Knee [employer] [id number] 01/05/2027 5515-F-[id number] / / [id number] Knee Pat Symmetric X3 8x27mm Stry-Howm [id number] [id number] - [id number] Implanted:Qty: 1 on 03/03/2022 by Mansoor Handley MD at [facility] Right: Knee [employer] [id number] 10/20/2026 5550-[id number] / / [id number] Knee Tib Baseplt Prim Cmnt Sz3 Stry-How [id number] - [id number] Implanted:Qty: 1 on 03/03/2022 by Mansoor Handley MD at [facility] Right: Knee [employer] [id number] 12/22/2025 5520-[id number] / / [id number] Insert Tib Triathlon Bearing Stry-How [id number] - [id number] Implanted:Qty: 1 on 03/03/2022 by Mansoor Handley MD at [facility] Right: Knee [employer] [id number] 01/13/2026 5532-G-[id number] / / [id number] Advance Directives For more information, please contact: [phone] Latest Code Status on File Code Status Date Activated Date Inactivated Comments Full Code 03/03/2022 2:39 PM 03/04/2022 7:14 PM This code status was ascertained in the following way: discussion with patient . Code Status History Code Status Date Activated Date Inactivated Comments Full Code 03/03/2022 9:22 AM 03/03/2022 2:39 PM This code status was ascertained in the following way: discussion with patient . Care Teams [employer] Mechanic Relationship Specialty Start Date End Date Elvin Christianson MD [address] [place] [address] PCP - General Internal Medicine 12/08/21
--- OUTSIDE RECORDS SUMMARY | 2024-09-26 13:47 | XMS_ITS | Clinical Summary ---
Author Organization [facility] Address [address] [place] [address] Phone Care Team Providers Care Risk Management Specialist Name Role Phone Elvin Christianson MD Primary Care Provider [phone] Encounters Date Type Department Care Team Description 08/26/2024 3:02 PM EST - 08/26/2024 11:59 PM EST Hospital Encounter [facility] Xray [address] [place] [phone] Clavicle pain Discharge Disposition: Home or Self Care 08/26/2024 Lab Requisition [facility] - Main Lab [address] [facility] [place] [phone] Jhonny Acevedo PA Other fatigue; Vitamin D deficiency, unspecified; Encounter for screening for diabetes mellitus; Essential (primary) hypertension from Last 3 Months Surgical History Surgery Date Site/Laterality Comments HYSTERECTOMY PROCEDURE: HISTORICAL HYSTERECTOMY APPENDECTOMY PROCEDURE: HISTORICAL APPENDECTOMY BLADDER SUSPENSION 2011 PROCEDURE: HISTORICAL BLADDER SUSPENSION HYSTERECTOMY PROCEDURE:HYSTERECTOMY COLONOSCOPY PROCEDURE:COLONOSCOPY BLADDER SURGERY PROCEDURE:BLADDER SURGERY APPENDECTOMY PROCEDURE:APPENDECTOMY TOTAL KNEE ARTHROPLASTY 03/03/2022 Right PROCEDURE:TOTAL KNEE ARTHROPLASTY;COMMENT:Procedure: REPLACEMENT TOTAL KNEE; Surgeon: Mansoor Handley MD; Location: [facility] Service: Orthopedics; Laterality: Right; JOINT REPLACEMENT PROCEDURE:JOINT REPLACEMENT Medical History Medical History Date Comments Arthritis 09/16/2016 DX:Arthritis Asthma 01/10/2017 DX:Asthma Coronary artery disease 09/16/2016 DX:Coron erica artery disease; COMMENT: Old [place] Hypertension 09/16/2016 DX:Hypertension Hyperlipidemia DX:Hyperlipidemi a Esophageal reflux DX:Esophageal reflux COPD (chronic obstructive pu lmonary disease) ([facility]/H[facility]) DX:COPD (chronic obstructive pulmonary disease) ([facility]) Heart disease DX:Heart disease Hypertension DX:Hypertension Asthma DX:Asthma Pneumonia DX:Pneumonia Bronchitis, chronic ([facility]/HCC) DX :Bronchitis, chronic (HCC) Myocardial infarction ([facility]) 2015 DX:Myocardial infarction ([facility]) Vertigo 08/2021 DX:Vertigo Chronic constipation DX:Chronic constipation Carpal tunnel syndrome DX:Carpal tunnel syndrome;COMMENT:Bilateral ESCALERA (dyspnea on exertion) DX:ESCALERA (dyspnea on exertion) Family History Medical History Relation Name Comments Cancer Father Other: unknown cancer Father Cancer Mother Coronary artery disease Mother Relation Name Status Comments Father Mother [...] on file Sexual Orientation Not on file Obstetrics History Last Filed Vital Signs Vital Sign Reading Time Taken Comments Blood Pressure 164/69 01/19/2024 9:33 AM EDT Pulse 68 01/19/2024 9:33 AM EDT Temperature - - Respiratory Rate - - Oxygen Saturation - - Inhaled Oxygen Concentration - - Weight 63.5 kg (140 lb) 01/19/2024 9:33 AM EDT Height 160 cm (5' 3 ) 01/19/2024 9:33 AM EDT Body Mass Index 24.8 01/19/2024 9:33 AM EDT Plan of Treatment Health Maintenance Due Date Last Done Comments Zoster Vaccines (1 of 2) 1986 Cholesterol Screening (Lipid Panel) 07/22/2022 Depression Screening 07/22/2022 Falls Risk Assessment 07/22/2022 Medicare Annual Wellness Visit 07/22/2022 Osteoporosis Screening (Bone Density Screening) 07/22/2022 Social Influencers of Health Screening 07/22/2022 Influenza Vaccine (#1) 2024 2, 05/05/2021, 05/18/2020, Additional history exists Hypertension/CHF/CAD Annual BMP Blood Test 08/26/2025 08/26/2024 DTaP,Tdap,and Td Vaccines (2 - Td or Tdap) 08/31/2032 08/31/2022 RSV Immunization Patients 60+ Years Old Completed 06/27/2023 COVID-19 Vaccine Completed 04/24/2024, 01/2023, 05/26/2022, Additional history exists Pneumococcal Vaccine: 50+ Years Completed 04/24/2024 HIB Vaccines Aged Out No longer eligi ble based on patient's age to complete this topic HPV Vaccines Aged Out No longer eligi ble based on patient's age to complete this topic Hepatitis A Vaccines Aged Out No long er eligible based on patient's age to complete this topic Hepatitis B Vaccines Aged Out No long er eligible based on patient's age to complete this topic IPV Vaccines Aged Out No longer eligi ble based on patient's age to complete this topic MMR Vaccines Aged Out No longer eligi ble based on patient's age to complete this topic Meningococcal ACWY Vaccine Aged Out N o longer eligible based on patient's age to complete this topic Meningococcal B Vacine Aged Out No lo nger eligible based on patient's age to complete this topic RSV Immunization Patients Under 20 months Aged Out No longer eligible based on patient's age to complete this topic Varicella Vaccines Aged Out No longer eligible based on patient's age to complete this topic Medical Devices Implanted Type Area Engineer Rf Deployment Device Identifier Shelf Expiration Date Model / Serial / Lot Cement Bone Surg Simplex Radiopq Stry-How [id number] Implanted:Qty: 1 on 03/03/2022 by Mansoor Handley MD Right: Knee [employer] 07/13/2023 6191-1-010 / / [id number] Cement Bone Surg Simplex Radiopq Stry-How [id number] Implanted:Qty: 1 on 03/03/2022 by Mansoor Handley MD Right: Knee [employer] 07/13/2023 6191-1-010 / / [id number] Knee Fem Ps Trthln Sz 2 Rt Stry-How [id number] Implanted:Qty: 1 on 03/03/2022 by Mansoor Handley MD Right: Knee [employer] [id number] 01/05/2027 5515-F-202 / / [id number] Knee Pat Symmetric X3 8x27mm Stry-Howm [id number] Implanted:Qty: 1 on 03/03/2022 by Mansoor Handley MD Right: Knee [employer] [id number] 10/20/2026 5550-G-278 / / [id number] Knee Tib Baseplt Prim Cmnt Sz3 Stry-Howm [id number] Implanted:Qty: 1 on 03/03/2022 by Mansoor Handley MD Right: Knee [employer] [id number] 12/22/2025 5520-B-300 / / [id number] Insert Tib Triathlon Bearing Stry-Howm [id number] Implanted:Qty: 1 on 03/03/2022 by Mansoor Handley MD Right: Knee [employer] [id number] 01/13/2026 5532-G-309 / / [id number] Procedures Procedure Name Priority Date/Time Associated Diagnosis Comments XR CLAVICLE COMPLETE BILAT Routine 08/26/2024 3:13 PM EST Clavicle pain SST - GOLD Routine 08/26/2024 12:00 AM [...] screening for diabetes mellitus Essential (primary) hypertension from Last 3 Months Results * XR Clavicle Complete bilat (08/26/2024 3:13 PM EST) Anatomical Region Laterality Modality Body, Clavicle Bilateral Radiographic Alana ging 08/28/2024 9:42 AM EST Impressions 08/28/2024 9:45 AM EST No acute fracture or subluxation. Proliferative changes with degeneration of the AC joints right greater than left. Calcific tendinitis around the right shoulder. -------- FINAL REPORT -------- Dictated By: Vickey Fyo Dictated Date: 08/28/2024 09:42 ET Assigned Physician: Vickey Foy Reviewed and Electronically Signed By: Vickey Foy Signed Date: 08/28/2024 09:45 ET Workstation ID: [id number] Transcribed By: Self Edit Transcribed Date: 08/28/2024 09:42 ET Narrative 08/28/2024 9:45 AM EST EXAMINATION: RIGHT CLAVICLE LEFT CLAVICLE CLINICAL INFORMATION: Pain COMPARISON: None. TECHNIQUE: 2 views right clavicle 2 views left clavicle FINDINGS: Right clavicle: No acute fracture. There are proliferative changes with some erosions and calcifications suggesting synovial proliferation at the AC joint. There is some osteophyte directed inferiorly at the distal clavicle. There is a soft tissue calcification adjacent to the humeral head with some reaction at the expected insertion of the supraspinatus. Osteophytes around the glenoid. The medial aspect of the clavicle is mostly obscured. Left clavicle: No fracture or suspicious focal lesion. Mild proliferative changes at the AC joint. Procedure Note Vickey Foy MD - 08/28/2024 EXAMINATION: RIGHT CLAVICLE LEFT CLAVICLE CLINICAL INFORMATION: Pain COMPARISON: None. TECHNIQUE: 2 views right clavicle 2 views left clavicle FINDINGS: Right clavicle: No acute fracture. There are proliferative changes with some erosions andcalcifications suggesting synovial proliferation at the AC joint. There issome osteophyte directed inferiorly at the distal clavicle. There is asoft tissue calcification adjacent to the humeral head with some reactionat the expected insertion of the supraspinatus. Osteophytes around the glenoid. The medial aspect of the clavicle ismostly obscured. Left clavicle: No fracture or suspicious focal lesion. Mild proliferative changes at theAC joint. IMPRESSION: No acute fracture or subluxation. Proliferative changes with degenerationof the AC joints right greater than left. Calcific tendinitis around theright shoulder. -------- FINAL REPORT -------- Dictated By: Vickey Foy Dictated Date: 08/28/2024 09:42 ET Assigned Physician: Vickey Foy Reviewed and Electronically Signed By: Vickey Foy Signed Date: 08/28/2024 09:45 ET Workstation ID: [id number] Transcribed By: Self Edit Transcribed Date: 08/28/2024 09:42 ET us Esvin Larry MD IMG XR PROCEDURES Final Res ult * SST tube (08/26/2024 12:00 AM EST) Extra Tube Hold for add-ons. 08/26/2024 8:01 PM EST [facility] Comment:Auto resulted. Blood Venous blood specimen / Unknown 08/26/2024 08/26/2024 6:23 PM EST us Jhonny LYONS LAB BLOOD ORDERABLES Final Res ult [facility] [address] [place] [address], [place] [phone] * (ABNORMAL) CBC auto differential (08/26/2024 12:00 AM EST) WBC 8.3 4.8 - 10.8 K/mcL LAB HEMETOLOGY METHOD 08/26/2024 7:14 PM EST [facility] RBC 3.90 3.80 - 4.80 M/mcL LAB HEMETOLOGY METHOD 08/26/2024 7:14 PM [facility] Hemoglobin 12.1 11.5 - 16.0 g/dL LAB HEMETOLOGY METHOD 08/26/2024 7:14 PM [facility] Hematocrit 35.9 35.0 - 47.0 % LAB HEMETOLOGY METHOD 08/26/2024 7:14 PM [facility] MCV 92.5 79.0 - 98.0 FL LAB HEMETOLOGY METHOD 08/26/2024 7:14 PM [facility] MCH 31.2 27.0 - 32.0 pcg LAB HEMETOLOGY METHOD 08/26/2024 7:14 PM [facility] MCHC 33.7 32.0 - 37.0 g/dL LAB HEMETOLOGY METHOD 08/26/2024 7:14 PM [facility] RDW 12.4 11.0 - 15.0 % LAB HEMETOLOGY METHOD 08/26/2024 7:14 PM [facility] Platelets 270 130 - 400 K/mcL LAB HEMETOLOGY METHOD 08/26/2024 7:14 PM [facility] MPV 10.8 7.0 - 11.0 FL LAB HEMETOLOGY METHOD 08/26/2024 7:14 PM [facility] NRBC 0.0 <1.0 % LAB HEMETOLOGY METHOD 08/26/2024 7:14 PM [facility] NRBC Absolute 0.00 <0.10 K/mcL LAB HEMETOLOGY METHOD 08/26/2024 7:14 PM [facility] Neutrophils Relative 75.6 % LAB HEMETOLOGY METHOD 08/26/2024 7:14 PM [facility] Lymphocytes Relative 14.9 % LAB HEMETOLOGY METHOD 08/26/2024 7:14 PM [facility] Monocytes Relative 6.5 % LAB HEMETOLOGY METHOD 08/26/2024 7:14 PM [facility] Eosinophils Relative 1.8 % LAB HEMETOLOGY METHOD 08/26/2024 7:14 PM [facility] Basophils Relative 0.7 % LAB HEMETOLOGY METHOD 08/26/2024 7:14 PM [facility] Immature Granulocytes Relative 0.5 % LAB HEMETOLOGY METHOD 08/26/2024 7:14 PM [facility] Neutrophils Absolute 6.25 1.50 - 7.00 K/mcL LAB HEMETOLOGY METHOD 08/26/2024 7:14 PM [facility] Lymphocytes Absolute 1.23 1.00 - 5.00 K/mcL LAB HEMETOLOGY METHOD 08/26/2024 7:14 PM [facility] Monocytes Absolute 0.54 0.20 - 1.00 K/mcL LAB HEMETOLOGY METHOD 08/26/2024 7:14 PM [facility] Eosinophils Absolute 0.15 0.00 - 0.50 K/mcL LAB HEMETOLOGY METHOD 08/26/2024 7:14 PM [facility] Basophils Absolute 0.06 0.00 - 0.20 K/mcL LAB HEMETOLOGY METHOD 08/26/2024 7:14 PM EST [facility] Immature Granulocytes Absolute 0.04(H) 0.00 - 0.03 K/mcL LAB HEMETOLOGY METHOD 08/26/2024 7:14 PM EST [facility] Blood Venous blood specimen / Unknown 08/26/2024 08/26/2024 6:23 PM EST Jhonny LYONS LAB BLOOD ORDERABLES Final Res ult [facility] [address] [place] [address], [place] [phone] * Vitamin D 25 hydroxy (08/26/2024 12:00 AM EST) Vit D, 25-Hydroxy 33.2 30.0 - 80.0 ng/mL LAB CHEMISTRY METHOD 08/26/2024 9:02 PM EST [facility] Blood Venous blood specimen / Unknown 08/26/2024 08/26/2024 6:23 PM EST Jhonny LYONS LAB BLOOD ORDERABLES Final Res ult [facility] [address] [place] [address], [place] [phone] * Thyroid stimulating hormone (08/26/2024 12:00 AM EST) TSH 1.23 0.40 - 4.00 mcIU/mL LAB CHEMISTRY METHOD 08/26/2024 9:09 PM EST [facility] Blood Venous blood specimen / Unknown 08/26/2024 08/26/2024 6:23 PM EST Jhonny LYONS LAB BLOOD ORDERABLES Final Res ult [facility] [address] [place] [address], [place] [phone] * Thyroxine free (08/26/2024 12:00 AM EST) Free T4 1.36 0.70 - 1.80 ng/dL LAB CHEMISTRY METHOD 08/26/2024 9:02 PM EST [facility] Blood Venous blood specimen / Unknown 08/26/2024 08/26/2024 6:23 PM EST Jhonny LYONS LAB BLOOD ORDERABLES Final Res ult [facility] [address] [place] [address], * Hemoglobin A1c (08/26/2024 12:00 AM EST) [facility] Hemoglobin A1C 5.9 <6.5 % LAB CHEMISTRY METHOD 08/27/2024 2:33 PM EST [facility] Mean Bld Glu Estim. 123 mg/dL LAB CHEMISTRY METHOD 08/27/2024 2:33 PM EST [facility] Blood Venous blood specimen / Unknown 08/26/2024 08/26/2024 6:23 PM EST Jhonny LYONS LAB BLOOD ORDERABLES Final Res ult [facility] [address] [place] [address], [place] [phone] * (ABNORMAL) Vitamin B12 (08/26/2024 12:00 AM EST) [facility] Vitamin B-12 204(L) 250 - 900 pcg/mL LAB CHEMISTRY METHOD 08/26/2024 8:06 PM EST [facility] Blood Venous blood specimen / Unknown 08/26/2024 08/26/2024 6:23 PM EST us Jhonny LYONS LAB BLOOD ORDERABLES Final Res ult [facility] [address] [place] [address], * (ABNORMAL) Comprehensive metabolic panel (08/26/2024 12:00 AM EST) Sodium 133 133 - 145 mmol/L LAB CHEMISTRY METHOD 08/26/2024 8:06 PM [facility] Potassium 3.4(L) 3.5 - 5.5 mmol/L LAB CHEMISTRY METHOD 08/26/2024 8:06 PM [facility] Chloride 99 96 - 110 mmol/L LAB CHEMISTRY METHOD 08/26/2024 8:06 PM [facility] CO2 25 21 - 32 mmol/L LAB CHEMISTRY METHOD 08/26/2024 8:06 PM [facility] Anion Gap 9 3 - 11 LAB CHEMISTRY METHOD 08/26/2024 8:06 PM [facility] Glucose 104(H) 70 - 100 mg/dL LAB CHEMISTRY METHOD 08/26/2024 8:06 PM [facility] BUN 17 5 - 25 mg/dL LAB CHEMISTRY METHOD 08/26/2024 8:06 PM [facility] Creatinine 1.13(H) 0.50 - 1.10 mg/dL LAB CHEMISTRY METHOD 08/26/2024 8:06 PM [facility] eGFR 47(L) >=60 mL/min/1. 73m2 LAB CHEMISTRY METHOD 08/26/2024 8:06 PM [facility] Comment:Calculation based on the??Chronic Kidney Disease Epidemiology Collaboration (CKD-EPI) equation refit??without adjustment for race. BUN/Creatinine Ratio 15.0 LAB CHEMISTRY METHOD 08/26/2024 8:06 PM [facility] Calcium 8.8 8.5 - 10.5 mg/dL LAB CHEMISTRY METHOD 08/26/2024 8:06 PM [facility] AST (SGOT) 19 10 - 42 unit/L LAB CHEMISTRY METHOD 08/26/2024 8:06 PM [facility] ALT (SGPT) 27 10 - 60 unit/L LAB CHEMISTRY METHOD 08/26/2024 8:06 PM [facility] Alkaline Phosphatase 81 42 - 121 unit/L LAB CHEMISTRY METHOD 08/26/2024 8:06 PM [facility] Total Protein 7.2 6.0 - 8.0 g/dL LAB CHEMISTRY METHOD 08/26/2024 8:06 PM [facility] Albumin 4.1 3.2 - 5.0 g/dL LAB CHEMISTRY METHOD 08/26/2024 8:06 PM [facility] Total Bilirubin 0.6 0.0 - 1.4 mg/dL LAB CHEMISTRY METHOD 08/26/2024 8:06 PM [facility] Blood Venous blood specimen / Unknown 08/26/2024 08/26/2024 6:23 PM EST Jhonny LYONS LAB BLOOD ORDERABLES Final Res ult [facility] [address] [place] [address], from Last 3 Months Insurance MEDICARE [facility] Care Teams Risk Management Specialist Relationship Specialty Start Date End Date Elvin Christianson MD [address] [place] [phone] PCP - General Internal Medicine 01/09/18
--- OUTSIDE RECORDS SUMMARY | 2024-09-26 13:47 | XMS_ITS | Encounter Summary ---
Author Organization [facility] [place] [address] Care Team Providers Care Flat Bed Knitter Name Role Phone Elvin Christianson MD Primary Care Provider [phone] Encounter Details Date Type Department Care Team (Latest Contact Info) Description 08/26/2024 3:02 PM EST - 08/26/2024 11:59 PM EST Hospital Encounter [facility] Xray [address] [place] [phone] Clavicle pain Discharge Disposition: Home or Self Care Social History Tobacco Use Types Packs/Day Years [...] on file documented as of this encounter Discharge Disposition Disposition Code Departure Means Destination Home or Self Care documented in this encounter Plan of Treatment Not on file documented as of this encounter Procedures Procedure Name Priority Date/Time Associated Diagnosis Comments XR CLAVICLE COMPLETE BILAT Routine 08/26/2024 3:13 PM EST Clavicle pain documented in this encounter Results * XR Clavicle Complete bilat (08/26/2024 [...] Signed Date: 08/28/2024 09:45 ET Workstation ID: [id number] Transcribed By: Self Edit Transcribed Date: 08/28/2024 [...] Signed Date: 08/28/2024 09:45 ET Workstation ID: [id number] Transcribed By: Self Edit Transcribed Date: 08/28/2024 09:42 ET Esvin Larry MD IMG XR PROCEDURES Final Res ult documented in this encounter Visit Diagnoses Diagnosis Clavicle pain Disorder of bone and cartilage, unspecified documented in this encounter Care Teams Flat Bed Knitter Relationship Specialty Start Date End Date Elvin Christianson MD [address] [place] [phone] PCP - General Internal Medicine 01/09/18 documented as of this encounter
--- NOTE | 2024-09-26 13:54 | A.OFFVIS_ITS ---
Vital Signs 09/26/24 13:55 Height 5 ft 3 in Weight 128 lb 15.527 oz BMI 22.8 BP 120/64 Blood Pressure Location Lt brachial Position Sitting Pulse 90 Pulse Source Pulse Oximeter Pulse Oximetry (%) 96 Oxygen Delivery Method Room Air Intake Visit Reasons: Persistent cough Intake Note: pt is here for a sick visit for Dr. Monk pt, she has had a cough that started a while ago, had pacemaker put in, got better but is now back the day she was discharged from [facility], cough is steady cough, draining her, no production, the cough is so hard, it almost gags her. Lock Tender Required: No Allergies oxycodone Adverse Reaction (Severe, Verified 09/26/24 14:31) Nausea and Vomiting Medication List - Last Reconciled 09/26/24 by Michela Torres MD albuterol sulfate 90 mcg/actuation 2 puffs PO Q6H PRN albuterol sulfate USE 1 VIAL (3 ML) INHALED 4 TIMES A DAY FOR 30 DAYS amlodipine 5 mg PO DAILY aspirin 81 mg PO DAILY atorvastatin mg PO calcium carbonate 600 mg PO DAILY fluticasone furoate-vilanterol 200-25 mcg/dose (Breo Ellipta) 1 inh inhalation DAILY 30 days lactobacillus combination no.8 cells PO PRN lorazepam 1 mg PO BEDTIME PRN metoprolol succinate ER 50 mg PO DAILY montelukast 10 mg PO DAILY lkdhkxyj-yqurfvb-fgat-lutein tabs PO nebulizers As directed omeprazole 40 mg PO DAILY torsemide 20 mg PO DAILY umeclidinium 62.5 mcg/actuation inhalation Do you need a note to return to daycare/school/sports/work: No HPI HPI Persistent cough: Details: This 88 years old very pleasant and alert female, comes for a urgent visit today because of increased amount of cough, for the past 2 weeks or so. She is a regular patient of Dr. Roshan Monk. She is being treated for chronic obstructive pulmonary disease and chronic intermittent cough, for quite a few years. About 2 weeks ago she was seen in urgent care clinic because of increased cough. She was treated with an antibiotic and also course of prednisone, and got better. As soon as she finished the prednisone she started having increased cough. Since last week she was feeling weak and tired and seen at the urgent care level found to have significant bradycardia and sent to [facility] ER. She was admitted because of bradycardia and underwent pacemaker placement . In the left pectoral area After that her heart rate is staying between 80-90. Her cough continue to bother her . She is being treated for chronic obstructive pulmonary disease with combination of Breo, Incruse Ellipta, and use of albuterol inhaler or by nebulizer. She used to have 2 cats which she had given away, but recently has adopted 2 new cats. She states that when she has bout of cough she also has runny nose at that time. I have a feeling that she has upper airway allergy, as well as component of a sthma which causes cough. This may very well be due to having the cats at home. [facility] Medical History Bronchopneumonia Asthma-COPD overlap syndrome Pulmonary nodules Cough Chronic allergic rhinitis Asthma Gastroesophageal reflux disease with esophagitis Social History Patient Tobacco Use Status: Never used Tobacco Review of Systems Const Denies night sweats ENT Denies change in voice, Denies lip swelling, Denies mouth pain, Reports nasal congestion and Denies tongue swelling Card Denies chest pain Resp Denies chest congestion, Reports cough and Denies wheezing GI Denies abdominal pain Musc Reports myalgias Neuro Denies Neuro-related abnormal movements Psych Denies no additional complaints Manuel/Lymph Denies easy bleeding and Denies lymphadenopathy Aller/Immun Denies lip swelling, Denies tongue swelling and Denies wheezing Physical Exam Vital Signs: Last Vital Signs Pulse 90 09/26/24 13:55 BP 120/64 09/26/24 13:55 Pulse Ox 96 09/26/24 13:55 Oxygen Delivery Method Room Air 09/26/24 13:55 BMI result Body Mass Index 22.8 Const General: healthy appearing, no acute distress and alert HEENT General nose exam: Abnormal external nose present and Nasal discharge present (Minimal) Eyes General: appearance normal, both eyes and all related structures Neck Neck: Yes normal visual inspection, Yes full ROM and Yes no lymphadenopathy Chest Chest palpation & inspection: normal inspection of the chest (Except that she has a pacemaker installed in the left pectoral area), normal palpation of entire chest wall and no tenderness Resp Other: Percussion note resonant breath sounds are distant with prolonged expiratory phase. No definite wheezes or rhonchi are heard. However during inspiratory phase she starts having cough. Effort & Inspection: normal respiratory effort Auscultation: no rales, no rhonchi, no wheezes and diminished lung sounds Cardio Rate: regular rate Rhythm: regular rhythm Heart sounds: S1 normal heart sound present and S2 normal heart sound present GI Palpation (GI): Soft to palpation and nontender Auscultation: normal bowel sounds General: Yes no CVA tenderness Back/Spine/Pelvis Back: no CVA tenderness Assessment & Plan Assessment & Plan (1) Asthma-COPD overlap syndrome: Comment: SHE HAS CHRONIC HISTORY OF ASTHMA/COPD, WHICH IS CONTROLLED WITH THE FOLLOWING MEDICATIONS. HOWEVER LATELY SHE IS HAVING FLARE UPS OF COUGH NOT SUBSIDING. Code(s): J44.9 - Chronic obstructive pulmonary disease, unspecified Category: Medical Plan: CONTINUE USING BREO 200-25 1 INHALATION DAILY INCRUSE ELLIPTA 1 INHALATION DAILY ALBUTEROL HFA 2 PUFFS Q 6 HOURS P.R.N. (2) Chronic allergic rhinitis: Comment: DURING CONVERSATION THIS PATIENT EXPRESSED THAT SHE DOES NASAL CONGESTION AND POSTNASAL DRIP USUALLY IT IS MORE PROMINENT WHEN SHE HAS BOUTS OF COUGH. THIS INDICATES THAT SHE DOES HAVE CHRONIC LOW-GRADE ALLERGIC RHINITIS. THIS MAY BE TO SOME EXTENT RELATED TO HAVING CATS AT HOME. THE FLARE UP OF ALLERGIC RHINITIS MAY BE CAUSING INCREASED COUGH Code(s): J30.9 - Allergic rhinitis, unspecified Category: Medical Plan: ADVISED. TO KEEP IT DISTANCE FROM THE CATS MAY USE CETIRIZINE 10 MG ONCE A DAY P.R.N. (3) Cough: Comment: SHE HAS CHRONIC COUGH WHICH FLARES UP EVERY NOW AND THEN, RECENTLY HAS BEEN TREATED AT [facility], AND SHE RESPONDED WELL TO COURSE OF ANTIBIOTIC AND PREDNISONE, AFTER STOPPING PREDNISONE THE COUGH HAS COME BACK. I THINK HER COUGH IS MORE DUE TO LOW-GRADE BRONCHITIS AND REACTIVE AIRWAYS. Code(s): R05 - Cough Category: Medical Qualifiers: Cough type: chronic Qualified Code(s): R05.3 - Chronic cough Plan: I WILL TREAT HER WITH A LOW DOES PREDNISONE FOR 2 WEEKS. ALSO EMPIRICALLY TREATING HER WITH DOXYCYCLINE 100 B.I.D. FOR 10 DAYS. ALSO USE ROBITUSSIN SYRUP 2 TSP T.I.D. WILL BE RECHECKED IN 2 WEEKS Medications: New prednisone TWO TABS A DAY FOR ONE WEEK , THEN ONE TAB A DAY 5 mg PO DIRECTED 2 weeks 14 tabs 0RF ASTHMA/COUGH doxycycline hyclate 100 mg PO BID 10 days 20 tabs 0RF BRONCHITIS Coding Level of Care Code Est Pt Level 3 (92883) Diagnoses Asthma-COPD overlap syndrome J44.9 Chronic allergic rhinitis J30.9 Chronic cough R05.3 Cough type: chronic
[2024-09-26 13:55] VITALS: BP 120/64; PULSE 90; O2SAT 96; BMI 22.8
== END 2024-09-26 14:35 | disposition home or self-care (01) ==
PROVIDERS: PCP Internal Medicine; Visit Provider Internal Medicine
DX: J44.9 Chronic obstructive pulmonary disease, unspecified (principal); J30.9 Allergic rhinitis, unspecified; R05.3 Chronic cough
CPT/HCPCS: 99213

== ENCOUNTER → 2024-09-26 13:38 | Outpatient (BNVA) | payer MEDICARE, OTHER, SELFPAY | PROVIDERS: PCP Internal Medicine; Visit Provider Internal Medicine | DX: J44.9 Chronic obstructive pulmonary disease, unspecified (principal); J30.9 Allergic rhinitis, unspecified; R05.3 Chronic cough | CPT/HCPCS: 99212 ==

== ENCOUNTER 2024-11-04 10:16 | Outpatient (AMB) | payer MEDICARE, OTHER, SELFPAY ==
[2024-11-04 10:34] VITALS: BP 92/60; PULSE 99; O2SAT 97; BMI 20.9
--- NOTE | 2024-11-04 10:34 | A.OFFVIS_ITS ---
Vital Signs 11/04/24 10:34 Height 5 ft 3 in Weight 117 lb 15.157 oz BMI 20.9 BP 92/60 Blood Pressure Location Rt brachial Position Sitting Pulse 99 Pulse Source Pulse Oximeter Pulse Oximetry (%) 97 Oxygen Delivery Method Room Air Intake Visit Reasons: COPD Allergies oxycodone Adverse Reaction (Severe, Verified 11/04/24 15:09) Nausea and Vomiting HPI Comments Details: The patient is an 88-year-old woman known history of asthma COPD overlap syndrome. She also has to history of cough in addition to reflux disease. Ovfarnaz richard she has been doing well on the current respiratory regimen. Unfortunately, she was not able to get her nebulizer because of issues with her coverage and also getting her machine from the [facility] does requested. The patient does need a nebulizer specially during the spring and summer months for her respiratory status gets worse. One her to have everything available to treat herself effectively home. In the meantime the patient does have reflux symptoms. We did discuss the reflux diet and also had been taking omeprazole with good effect in the past. 05/11/2022 the patient is here for a pulmonary follow-up visit. Overall the patient has been doing better. Her cough is better overall. She continues to respiratory medication. She is also using her nasal sprays. Does have nasal congestion but overall better. Patient did have a CT scan of the chest at [facility] which was personally by me. Her pulmonary nodules are stable and appears stable more than 2 years. Therefore at this point she will not need more serial CT scans unless she has any worsening symptoms or any new symptoms. The patient did have some slight haziness at the bases but no significant scarring noted. Clinically she is doing well. 05/02/2023 the patient is here for a pulmonary follow-up visit. For last few days she started developing a cough. It appears to be more a croupy cough sometimes she does bring up some phlegm. Also complaining of chest tightness and shortness of breath. She does have a nebulizer but she ran out of the nebulized solutions therefore she has minimal to use it. She has been using her respiratory medications with only partial resolution of symptoms. She is actively coughing in the office and is in the croupy. It appears to be consistent with viral syndrome although could develop into a bacterial process. Will go ahead and send her a course of antibiotics and also she will need prednisone for the wheezing and the asthma exacerbation. She needs to be using her nebulizer so therefore I will send her I am feels for her nebulizer machine. The patient will continue to use her maintenance therapy. The patient is no better she needs to call the office. Otherwise follow-up in 6 months. 10/31/2023 the patient is here for sick visit. She developing worsening cough. She has been sick now for about 3 weeks. Initially she was coughing some lose sticky white phlegm. She felt congested. She has been using her nebulizer with good improvement of her symptoms. Although is only temporary. She has been using it twice a day now. Seems to be little better. Now her chest congestion has gotten a little heavier. The mucus is darker and thick in color and difficult to expectorate. She is concerned because she does not want a have worsening of her breathing she has a hard time already. On exam she does have any significant wheezing although she does have some crackles at the bases. Will go ahead and treat her for bronchopneumonia. The patient should have a chest x-ray and she has not had blood work and sometimes will go ahead and do that as well. Will go ahead and send her prescription for Augmentin. If the patient is not getting better I did give her a sputum cup in order for her to provide us a sputum culture. 02/05/2024 The patient is here for a pulmonary follow up visit. She is feeling better. Completed the abx and prednisone. Has continued to use her respiratory therapy. Nebs as needed for now. CXR personally reviewed by me with bronchiectatic looking airways and minimal opacity of the right hemithorax.. Her bloodwork was reassuring with a strong immune system. 11/04/2024 the patient is here for hospital follow-up visit. Apparently she was in her usual state health until September when she started developing worsening cough. She did call to see if she can be seen but we had no availability. She did go to an urgent care. She was treated with some antibiotics. Although her symptoms persisted started getting significantly weak and fatigued. She went back to the urgent care and she was found to have a heart rate in the low 40s. She was sent to the hospital where she was evaluated by Cardiology and recommended to get a pacemaker. 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 In addition to that when she went to [facility] ER for that evaluation she did undergo a CTA that demonstrated bilateral pulmonary emboli. She also had ground-glass opacities bilaterally with consolidations at the bases and her influenza test was positive for influenza A. Therefore likely she developed post flu bacterial pneumonia. She was treated in the hospital with Eliquis for the PE and also was given additional therapies. She was released. She denies being placed on any antibiotics. Although she had completed a course of doxycycline sometime in September. Her respiratory exam is reassuring. I did review her CT scan pe rsonally by me demonstrating the findings as stated above. She also has a 5 mm pulmonary nodule that appears to be new. Denies any history of cancer. She is no longer getting colonoscopies her mammograms are up-to-date and she is not aware of any history of cancer. I explained to her that with the unprovoked event if indeed there were unprovoked that we need to follow-up pulmonary nodule closely since his new. The patient may also want to get a CT scan of the abdomen. While she was leaving the office to make an appointment the patient started feeling dizzy and had to sit down and then she had to lay down. We did check her systolic blood pressure was 80/40 heart rate was 97. Pulse ox was stable. The patient was placed on a stretcher and then she started feeling better her blood pressure did improve to 120/80. Although the patient was starting to feel better she was still recommended to go to the ER for evaluation. The patient agreed and she was transferred over. [facility] Medical History Bronchopneumonia Asthma-COPD overlap syndrome Pulmonary nodules Cough Chronic allergic rhinitis Asthma Gastroesophageal reflux disease with esophagitis Social History Patient Tobacco Use Status: Never used Tobacco Review of Systems Const Reports fatigue and Denies night sweats ENT Denies change in voice, Reports dizziness, Denies lip swelling, Denies mouth pain, Reports nasal congestion and Denies tongue swelling Card Denies chest pain, Reports lightheadedness and Reports dyspnea on exertion Resp Reports chest congestion, Reports cough, Reports dyspnea on exertion and Denies wheezing GI Denies abdominal pain Musc Reports myalgias Neuro Denies Neuro-related abnormal movements and Reports dizziness Psych Denies no additional complaints Endo Reports fatigue Manuel/Lymph Denies easy bleeding and Denies lymphadenopathy Aller/Immun Denies lip swelling, Denies tongue swelling and Denies wheezing Physical Exam Vital Signs: Last Vital Signs Pulse 99 11/04/24 10:34 BP 92/60 11/04/24 10:34 Pulse Ox 97 11/04/24 10:34 Oxygen Delivery Method Room Air 11/04/24 10:34 BMI result Body Mass Index 20.9 Const General: alert HEENT General nose exam: Nasal discharge present Neck Neck: Yes normal visual inspection, Yes full ROM and Yes no lymphadenopathy Chest Chest palpation & inspection: normal inspection of the chest Resp Effort & Inspection: normal respiratory effort Auscultation: no rales, no rhonchi, no wheezes and diminished lung sounds Cardio Rate: regular rate Rhythm: regular rhythm Heart sounds: S1 normal heart sound present and S2 normal heart sound present GI Palpation (GI): Soft to palpation and nontender Auscultation: normal bowel sounds General: Yes no CVA tenderness Back/Spine/Pelvis Back: no CVA tenderness Assessment & Plan Assessment & Plan (1) Asthma: Code(s): J45.909 - Unspecified asthma, uncomplicated Category: Medical Qualifiers: Asthma complication type: with acute exacerbation Asthma persistence: persistent Asthma severity: moderate Qualified Code(s): J45.41 - Moderate persistent asthma with (acute) exacerbation (2) Gastroesophageal reflux disease with esophagitis: Code(s): K21.00 - Gastro-esophageal reflux disease with esophagitis, without bleeding Category: Medical Qualifiers: Esophagitis bleeding: without hemorrhage Qualified Code(s): K21.00 - Gastro-esophageal reflux disease with esophagitis, without bleeding (3) Pulmonary nodules: Code(s): R91.8 - Other nonspecific abnormal finding of lung field Category: Medical (4) Cough: Code(s): R05 - Cough Category: Medical Qualifiers: Cough type: chronic Qualified Code(s): R05.3 - Chronic cough (5) Asthma-COPD overlap syndrome: Code(s): J44.9 - Chronic obstructive pulmonary disease, unspecified Category: Medical (6) Dizziness: Code(s): R42 - Dizziness and giddiness Category: Medical (7) Acute hypotension: Code(s): I95.9 - Hypotension, unspecified Category: Medical (8) Bronchopneumonia: Code(s): J18.0 - Bronchopneumonia, unspecified organism Category: Medical Plan Will go to the ED for an evaluation for dizziness and hypotension start Doxycycline x 2 weeks continue Symbicort ASHLIE as needed Continue Astelin nasal spray Continue Singulair Reflux diet F/U 3-4 months Medications: New doxycycline monohydrate 100 mg PO BID 28 tabs 0RF 14 days Coding Level of Care Code Est Pt Level 5 (95250) Diagnoses Moderate persistent asthma with acute exacerbation J45.41 Asthma complication type: with acute exacerbation Asthma persistence: persistent Asthma severity: moderate Gastroesophageal reflux disease with esophagitis without hemorrhage K21.00 Esophagitis bleeding: without hemorrhage Pulmonary nodules R91.8 Chronic cough R05.3 Cough type: chronic Asthma-COPD overlap syndrome J44.9 Dizziness R42 Acute hypotension I95.9 Bronchopneumonia J18.0 Time Spent (min) 55
== END 2024-11-04 11:21 | disposition home or self-care (01) ==
LOC: HO.HPS 10:17
PROVIDERS: PCP Internal Medicine; Visit Provider Hospitalist
DX: J45.41 Moderate persistent asthma with (acute) exacerbation (principal); R91.8 Other nonspecific abnormal finding of lung field; J18.0 Bronchopneumonia, unspecified organism; R42 Dizziness and giddiness; I95.9 Hypotension, unspecified
CPT/HCPCS: 99215

== ENCOUNTER 2024-11-04 11:27 | Emergency (ER) | payer MEDICARE, OTHER, SELFPAY ==
--- NOTE | ~2024-11-04 | XR_ITS ---
EXAMINATION: XR CHEST CLINICAL INFORMATION: Weakness, rule out pneumonia COMPARISON: 10/31/2023. TECHNIQUE: AP view of the chest was obtained. FINDINGS: Left-sided dual-lead pacer device in place with leads terminating in the right atrium and right ventricle. The cardiac, hilar, and mediastinal contours are normal. The lungs are clear bilaterally. No pneumothorax or effusion. No focal osseous or soft tissue abnormality. Mild calcific tendinopathy of the right rotator cuff. Mild degenerative changes in both shoulder joints and throughout the spine. XR/XR chest 1V IMPRESSION: 1. Dual-lead pacer device in good position. 2. No active pulmonary disease. Electronically signed by: Kilo Stafford MD 11/04/2024 12:24 PM EDT
--- NOTE | 2024-11-04 11:32 | ECG_ITS ---
Test Reason : FALL Blood Pressure : */* mmHG Vent. Rate : 80 BPM Atrial Rate : 80 BPM P-R Int : 200 ms QRS Dur : 146 ms QT Int : 468 ms P-R-T Axes : 60 -79 21 degrees QTcB Int : 539 ms Atrial-sensed ventricular-paced rhythm Abnormal ECG No previous ECGs available Referred By: Generic ED Physician Electronically Signed By: FRANCIA ADHIKARI MD
[2024-11-04 11:51] VITALS: BMI 20.5
[2024-11-04 11:52] VITALS: O2SAT 97
--- NOTE | 2024-11-04 11:53 | ED.DIZZY ---
HPI - Dizziness General Chief Complaint: Syncope Stated Complaint: Low BP Time Seen by Provider: 11/04/24 11:34 History of Present Illness HPI Narrative: 88-year-old woman known history of asthma COPD overlap syndrome, hypertension, GERD, recent pacemaker insertion 09/23/2024 who had a routine visit with her communications station manager, Dr. Monk and she was found to be hypotensive with a blood pressure of 80/40. She did complain of lightheadedness and fatigue. The patient was then sent to the emergency department for evaluation. The patient states that she has been in her usual state of health. She was had some fatigue but she attributes this to her lung disease. Review of systems was negative for fever, chills, rhinorrhea, sore throat, shortness of breath above her baseline, dyspnea on exertion, nausea, diarrhea, dark stools, bloody stools, dysuria, frequency or abdominal pain. She states that her visiting nurse did tell her several days ago that her blood pressure may has been low but she does not recall the blood pressure reading. She states that in the past she was had low blood pressure readings and was told to increase the amount of fluid that you drinks since it was suspected that she was dehydrated Related Data Home Medications ?Medication ?Instructions ?Recorded ?Confirmed aspirin 81 mg tablet,delayed 81 mg PO DAILY 10/16/20 09/26/24 release atorvastatin 40 mg tablet mg PO 10/16/20 09/26/24 lorazepam 1 mg tablet 1 mg PO BEDTIME PRN 10/16/20 09/26/24 montelukast 10 mg tablet 10 mg PO DAILY 10/16/20 09/26/24 umeclidinium 62.5 mcg/actuation inhalation 10/16/20 09/26/24 blister powder for inhalation amlodipine 5 mg tablet 5 mg PO DAILY 10/15/21 09/26/24 calcium carbonate 600 mg PO DAILY 10/15/21 09/26/24 afuyxqdg-fyqtqhk-cxob-lutein tablet tab PO 10/15/21 09/26/24 lactobacillus combination no.8 3 cell PO PRN 05/02/23 09/26/24 billion cell capsule metoprolol succinate 50 mg 50 mg PO DAILY 05/02/23 09/26/24 tablet,extended release 24 hr nebulizers 05/02/23 09/26/24 torsemide 20 mg tablet 20 mg PO DAILY 09/26/24 09/26/24 apixaban 5 mg tablet (Eliquis) 5 mg PO BID 11/04/24 Previous Rx's ?Medication ?Instructions ?Recorded albuterol sulfate 90 mcg/actuation 2 puff PO Q6H PRN shortness of 06/27/24 aerosol inhaler breath or wheezing #20.1 ea omeprazole 40 mg capsule,delayed 40 mg PO DAILY #90 caps 08/26/24 release albuterol sulfate 2.5 mg/3 mL See Rx Instructions .Route 09/13/24 (0.083 %) solution for nebulization .COMPLEX #150 mL doxycycline hyclate 100 mg tablet 100 mg PO BID BRONCHITIS 10 days 09/26/24 #20 tabs prednisone 5 mg tablet 5 mg PO DIRECTED ASTHMA/COUGH 2 09/26/24 weeks #14 tabs fluticasone furoate 200 1 inh inhalation DAILY 30 days #60 10/01/24 mcg-vilanterol 25 mcg/dose ea inhalation powder (Breo Ellipta) doxycycline monohydrate 100 mg 100 mg PO BID 14 days #28 tabs 11/04/24 tablet Allergies Allergy/AdvReac Type Severity Reaction Status Date / Time oxycodone AdvReac Severe Nausea and Verified 11/04/24 15:09 Vomiting Review of Systems Review of Systems: Yes all other systems are reviewed and are negative [facility] Past Medical History [facility] Narrative: social history: She denies tobacco use. She occasionally drinks alcohol. She denies drug use. Medical History Bronchopneumonia Asthma-COPD overlap syndrome Pulmonary nodules Cough Chronic allergic rhinitis Asthma Gastroesophageal reflux disease with esophagitis Social History Social History Patient Tobacco Use Status: Never used Tobacco Advance Directives: Yes Advance Directives Information Provided: Yes Advance Directives on File: No Do you have a plan to hurt others: No Plan Physical Exam Vital Signs: Vital Signs: Last Vital Signs Temp 98.1 F 11/04/24 16:37 Pulse 89 11/04/24 16:37 Resp 20 11/04/24 16:37 BP 110/56 L 11/04/24 16:37 Pulse Ox 98 11/04/24 16:37 O2 Del Method Room Air 11/04/24 16:37 BMI result Body Mass Index 20.5 Exam: General: Awake, alert in no distress Head: Normocephalic, atraumatic EENT: PERRL, Lids normal, sclera normal, conjunctiva normal, nose normal , ears normal, throat without erythema or exudates Neck: Supple, no adenopathy Lung: breath sounds symmetric, no wheezing, rales or rhonchi Chest: symmetric movement, nontender Heart: regular rate and rhythm, normal S1, S2 no murmurs or rubs Abdomen: soft, non-tender, nondistended, normal bowel sounds Back: no vertebral tenderness, no CVAT Extremities: no deformities, moves all extremities symmetrically Neuro: Awake, alert, oriented, normal speech, cranial nerves intact, moves all extremities symmetrically Psych: Pleasant, cooperative Medications Administered Discontinued Medications Generic Name Dose Route Start Last Admin Trade Name Freq PRN Reason Stop Dose Admin Sodium Chloride 1,000 mls @ 999 mls/hr 11/04/24 11:51 11/04/24 13:16 Ns IV 11/04/24 12:51 Infused .Q1H1M STA Infusion Magnesium Sulfate 2 gm in 50 mls @ 25 mls/hr 11/04/24 13:24 11/04/24 15:59 Magnesium Sulfate/H2o IV 11/04/24 15:23 Infused ONCE ONE Infusion Medical Decision Making Medical Decision Making MDM Narrative: 88-year-old woman known history of asthma COPD overlap syndrome, hypertension, GERD, recent pacemaker insertion 09/23/2024 who had a routine visit with her communications station manager, Dr. Monk and she was found to be hypotensive with a blood pressure of 80/40. She states that several days ago she was told that her blood pressure was low by her visiting nurse but does not know the blood pressure reading. Review of systems were negative and the patient has been in her usual state of health. patient initially had a blood pressure of 79/61 in her left arm with a blood pressure of 145/66 in the right arm. These readings are repeated and the left and right blood pressures were similar 148/60 and 146/62. Physical examination was otherwise unremarkable Differential diagnosis: Includes but is not limited to dehydration, volume depletion, myocardial infarction, myocardial ischemia, medication related hypotension, viral syndrome, anemia, electrolyte abnormalities Course: 13:28 Orthostatic vital signs below were normal: Lying: BP 144/54, pulse 76 Sitting: BP 145/62, BP 79 Standing: BP 150/77, pulse 89 My interpretation patient's laboratory evaluation is as follows: Chronic normocytic anemia with an H&H of 10.9 and 32.1. Glucose elevated 132. First troponin elevated at 95.3. Repeat due at 15:40 hours. BNP elevated 258. Calcium low 7.7. Magnesium low 0.7. Patient was 12 EKG revealed an atrial paced rhythm. The patient was magnesium was low magnesium 2 g IV. Patient was repeat troponin will be due at 15:40 hours. 16:52 The patient's repeat 3 hour high sensitive troponin I was 108 which is reassuring and does not reflect a significant elevation. Therefore I doubt that the patient had a myocardial infarction myocardial injury is the cause of her hypotension.Since the patient was been in the emergency department she was had no hypotensive values and I did discuss this with her and her .Patient was advised to check her blood pressure at home 3 times a week for the next 2 weeks and to discuss these blood pressure readings with her primary care provider.Patient did have a low magnesium and she was instructed to take a multivitamin with magnesium daily. She was given printed and verbal instructions and discharged home Admission/Observation Consideration of admission/observation: Escalation of care including admission/observation considered Lab Data MDM Lab Attestation statement: I reviewed the patient's lab results. 11/04/24 12:41 11/04/24 12:41 Labs: Lab Results 11/04/24 11/04/24 Range/Units 12:41 15:41 WBC 11.4 H (4.8-10.8) X10*3/uL RBC 3.57 L (4.20-5.50) X10*6/uL Hgb 10.9 L (12.0-16.0) g/dl Hct 32.1 L (37.0-47.0) % MCV 89.9 (80.0-98.0) fL MCH 30.5 (27.0-33.0) pg MCHC 34.0 (31.0-35.0) g/dl RDW 13.6 (11.0-16.0) % Plt Count 296 D (160-400) X10*3/uL MPV 9.8 (9.4-12.3) fL Immature Gran % (Auto) 0.3 (0.0-0.4) % Neut % (Auto) 85.9 H (45-73) % Lymph % (Auto) 6.7 L (20-40) % Gaston % (Auto) 6.4 (2-11) % Eos % (Auto) 0.2 (0-4) % Baso % (Auto) 0.5 (0-2) % Lymph # (Auto) 0.8 L (1.2-4.9) X10*3/uL Gaston # (Auto) 0.7 (0.1-1.2) X10*3/uL Eos # (Auto) 0.0 (0.0-0.4) X10*3/uL Baso # (Auto) 0.1 (0.0-0.2) X10*3/uL Abs Immat Gran (auto) 0.03 (0.00-0.03) X10*3/uL Absolute Neuts (auto) 9.8 H (2.0-8.3) x10*3/uL Absolute Nucleated RBC 0.000 (0.0-0.012) X10*3/uL Nucleated RBC % (auto) 0.0 (0.0-0.2) /100WBC Sodium 141 (135-145) mmol/L Potassium 3.8 (3.3-5.1) mmol/L Chloride 103 (96-108) mmol/L Carbon Dioxide 28 (22-29) mmol/L Anion Gap 14 (12-20) BUN 16 (9-16) mg/dL Creatinine 1.07 (0.5-1.4) mg/dL Estim Creat Clear Calc TNP Estimated GFR 49 Random Glucose 132 H (60-115) mg/dL Calcium 7.7 L D (8.4-10.2) mg/dL Magnesium 0.7 L* (1.6-2.6) mg/dL Total Bilirubin 0.9 (0.0-1.0) mg/dL AST 24 (5-31) U/L ALT 16 (0-31) U/L Alkaline Phosphatase 70 (39-117) U/L Troponin I High Sens 95.3 H* 108.1 H* (<3.5-17.0) ng/L B-Natriuretic Peptide 258 H (<100) pg/mL Total Protein 6.9 (6.5-8.0) g/dL Albumin 3.2 L (3.5-5.0) g/dL Lipase 21 (8-78) U/L Influenza Type A (PCR) NEGATIVE (Negative) Influenza Type B (PCR) NEGATIVE (Negative) RSV RNA Qual (PCR) NEGATIVE (Negative) SARS-CoV-2 RNA (RT-PCR) NEGATIVE (Negative) Independent Interpretation I performed an independent interpretation of an: Plain X-Ray Interpretation: My interpretation patient's chest x-ray is as follows: No acute disease My interpretation patient's 12 EKG done on 11/04/2024 at 12:19 hours is as follows: Atrial sensed paced rhythm with a rate of 80 Radiology Impression Discussion of test interpretation with radiology: I have reviewed the radiologist's reading. Radiologist Impression: EXAMINATION: XR CHEST CLINICAL INFORMATION: Weakness, rule out pneumonia COMPARISON: 10/31/2023. TECHNIQUE: AP view of the chest was obtained. FINDINGS: Left-sided dual-lead pacer device in place with leads terminating in the right atrium and right ventricle. The cardiac, hilar, and mediastinal contours are normal. The lungs are clear bilaterally. No pneumothorax or effusion. No focal osseous or soft tissue abnormality. Mild calcific tendinopathy of the right rotator cuff. Mild degenerative changes in both shoulder joints and throughout the spine. XR/XR chest 1V IMPRESSION: 1. Dual-lead pacer device in good position. 2. No active pulmonary disease. Electronically signed by: Kilo Stafford MD 11/04/2024 12:24 PM EDT Independent Historian Clinical information obtained from an independent historian. History obtained from or confirmed by: Spouse Chronic Conditions Patient?s care impacted by: Hypertension and Other ( COPD) Discharge Plan Discharge Clinical Impression: Acute hypotension, Dizziness, Hypomagnesemia Patient Disposition: Home, Self-Care Instructions: Hypomagnesemia (ED) Additional Instructions: You had 1 low blood pressure documented at your pulmonology doctor's office but here in the emergency department your blood pressure were all normal Your blood work did reveal low magnesium. I want you to take a multivitamin with magnesium daily. Your blood work that your high sensitivity troponin was 95.3 Normal value in women is less than 17. Your 3 hour repeat high sensitive troponin I was 108 which is not a significant change. the fact that your troponin did not increase over 3 hours is veryreassuring and suggests that you did not have a heart attack or heart damage as the cause of your low blood pressure. You may just have a higher than normal value of troponin in your blood which is probably normal for you. I want you to continue taking your blood pressure medications as directed by your doctor. I want you to check your blood pressure at home in order to give your doctor an idea of what your blood pressure does when you are not in the doctor's office. Take your blood pressure in the mornings, Mondays , Wednesdays and Fridays and then write down these readings to discuss them with your doctor at your next visit. Do this for 2 weeks. If your doctor thinks that your blood pressures are too high or too low then they will either change your blood pressure medications. Follow-up with your doctor to discuss your blood pressure readings in 2 weeks Please return to the emergency department if your symptoms get worse or if you develop any new symptoms that are concerning to you. Prescriptions: No Action albuterol sulfate 90 mcg/actuation HFA aerosol inhaler 2 puff PO Q6H PRN (Reason: shortness of breath or wheezing) Qty: 20.1 1RF omeprazole 40 mg capsule,delayed release(DR/EC) 40 mg PO DAILY Qty: 90 1RF albuterol sulfate 2.5 mg /3 mL (0.083 %) solution for nebulization See Rx Instructions .ROUTE .COMPLEX Qty: 150 5RF Dose Instruction: USE 1 VIAL (3 ML) INHALED 4 TIMES A DAY FOR 30 DAYS Rx Instructions: USE 1 VIAL (3 ML) INHALED 4 TIMES A DAY FOR 30 DAYS fluticasone furoate-vilanterol [Breo Ellipta] 200-25 mcg/dose blister with device 1 inh inhalation DAILY 30 Days Qty: 60 1RF atorvastatin 40 mg tablet PO Incruse Ellipta 62.5 mcg/actuation blister with device inhalation montelukast 10 mg tablet 10 mg PO DAILY lorazepam 1 mg tablet 1 mg PO BEDTIME PRN aspirin 81 mg tablet,delayed release (DR/EC) 81 mg PO DAILY amlodipine 5 mg tablet 5 mg PO DAILY bsboaylr-aapbjkk-abhz-lutein Tablet PO calcium carbonate 600 mg calcium (1,500 mg) tablet 600 mg PO DAILY lactobacillus combination no.8 3 billion cell capsule PO PRN (DME) nebulizers Misc See Rx Instructions .Route Rx Instructions: As directed metoprolol succinate 50 mg tablet extended release 24 hr 50 mg PO DAILY Eliquis 5 mg tablet 5 mg PO BID doxycycline monohydrate 100 mg tablet 100 mg PO BID 14 Days Qty: 28 0RF torsemide 20 mg tablet 20 mg PO DAILY prednisone 5 mg tablet 5 mg PO DIRECTED 14 Days Qty: 14 0RF Rx Instructions: TWO TABS A DAY FOR ONE WEEK , THEN ONE TAB A DAY doxycycline hyclate 100 mg tablet 100 mg PO BID 10 Days Qty: 20 0RF Print Language: Estonian
[2024-11-04] MEDS: 0.9 % Sodium Chloride 1,000 ML 999 ML IV (11:58)
[2024-11-04 12:21] VITALS: BP 144/54; PULSE 76
[2024-11-04 12:22] VITALS: BP 145/62; BP 150/77; PULSE 79; PULSE 89
[2024-11-04 12:46] LABS: MANUAL DIFF FLAG NO
[2024-11-04 12:49] LABS: Basophils Absolute Auto 0.1 X10*3/uL (0.0-0.2); Basophils Percent Auto 0.5 % (0-2); Eosinophils Percent Auto 0.2 % (0-4); Hematocrit 32.1 % (37.0-47.0); Hemoglobin 10.9 g/dl (12.0-16.0); Imm Gran Abs Auto 0.03 X10*3/uL (0.00-0.03); Imm Gran Pct Auto 0.3 % (0.0-0.4); Lymphocytes Absolute Auto 0.8 X10*3/uL (1.2-4.9); Lymphocytes Percent Auto 6.7 % (20-40); Mean Corpuscular Hemoglobin 30.5 pg (27.0-33.0); Mean Corpuscular Volume 89.9 fL (80.0-98.0); Mean Platelet Volume 9.8 fL (9.4-12.3); Monocytes Absolute Auto 0.7 X10*3/uL (0.1-1.2); Monocytes Percent Auto 6.4 % (2-11); Neutrophils Absolute Auto 9.8 x10*3/uL (2.0-8.3); Neutrophils Percent Auto 85.9 % (45-73); Platelet Count 296 X10*3/uL (160-400); Red Blood Count 3.57 X10*6/uL (4.20-5.50); Red Cell Distribution Width 13.6 % (11.0-16.0); White Blood Count 11.4 X10*3/uL (4.8-10.8)
[2024-11-04 13:07] LABS: B Type Natriuretic Peptide 258 pg/mL (<100)
[2024-11-04 13:11] LABS: Alanine Aminotransferase 16 U/L (0-31); Albumin Level 3.2 g/dL (3.5-5.0); Alkaline Phosphatase 70 U/L (39-117); Anion Gap 14 (12-20); Aspartate Amino Transferase 24 U/L (5-31); Bilirubin Total 0.9 mg/dL (0.0-1.0); Blood Urea Nitrogen 16 mg/dL (9-16); Calcium 7.7 mg/dL (8.4-10.2); Carbon Dioxide 28 mmol/L (22-29); Chloride 103 mmol/L (96-108); Estimated Glomerular Filt Rate 49; Glucose Random 132 mg/dL (60-115); Lipase 21 U/L (8-78); Magnesium 0.7 mg/dL (1.6-2.6); Potassium 3.8 mmol/L (3.3-5.1); Sodium 141 mmol/L (135-145); Total Protein 6.9 g/dL (6.5-8.0)
[2024-11-04 13:14] LABS: Troponin-I High Sensitivity 95.3 ng/L (<3.5-17.0)
[2024-11-04 13:24] LABS: Influenza A PCR NEGATIVE (Negative); Influenza B PCR NEGATIVE (Negative); Resp Syncy Virus RNA Qual PCR NEGATIVE (Negative); SARS COV2 PCR INHOUSE NEGATIVE (Negative)
[2024-11-04] MEDS: Magnesium Sulfate/H2O 2 GM/50 ML PIGGYBACK IV (13:58)
[2024-11-04 16:15] LABS: Troponin-I High Sensitivity 108.1 ng/L (<3.5-17.0)
[2024-11-04 16:37] VITALS: BP 110/56; PULSE 89; RESP 20; TEMP 36.7; O2SAT 98
[2024-11-04 17:01] VITALS: BP 110/56; PULSE 89; RESP 20; TEMP 36.7; O2SAT 98
== END 2024-11-04 17:02 | disposition home or self-care (01) ==
PROVIDERS: Emergency Provider Emergency Medicine Emergency Medical Services
DX: R55 Syncope and collapse (principal); E83.42 Hypomagnesemia; I95.9 Hypotension, unspecified; R42 Dizziness and giddiness; R94.31 Abnormal electrocardiogram [ECG] [EKG]; Z79.899 Other long term (current) drug therapy; Z03.818 Encounter for observation for suspected exposure to other biological agents ruled out
CPT/HCPCS: 0241U; 36415; 71045; 80053; 83690; 83735; 83880; 84484; 85025; 93005; 96361; 96365; 96366; 99212; 99284; 99285; J3475

== ENCOUNTER → 2024-11-04 11:32 | Outpatient (BNV) | payer MEDICARE, OTHER, SELFPAY | PROVIDERS: Emergency Provider Emergency Medicine Emergency Medical Services; Visit Provider Internal Medicine Cardiovascular Disease | DX: I49.8 Other specified cardiac arrhythmias (principal) | CPT/HCPCS: 93010 ==

== ENCOUNTER → 2024-11-04 11:51 | Outpatient (BNV) | payer MEDICARE, OTHER, SELFPAY | PROVIDERS: Emergency Provider Emergency Medicine Emergency Medical Services; Visit Provider Radiology Diagnostic Radiology | DX: R53.1 Weakness (principal) | CPT/HCPCS: 71045 ==

== ENCOUNTER 2025-01-27 10:42 | Outpatient (REF) | payer MEDICARE, OTHER, SELFPAY ==
--- NOTE | ~2025-01-27 | CT_ITS ---
EXAMINATION: CT ANGIOGRAM CHEST CLINICAL INFORMATION: Other nonspecific abnormal finding of lung field. 89-year-old female. COMPARISON: No prior chest CT available. TECHNIQUE: Multiple axial images were obtained through the chest after the administration of 65 mL of Omnipaque 350 intravenous contrast. Extensive vascular post-processing including two-dimensional and three-dimensional reformatted images were created and reviewed on an independent workstation. This CT examination was performed using dose optimization techniques as appropriate, variously including the following: *Automated exposure control *Adjustment of mA and/or kV according to patient size (this includes techniques or standardized protocols for targeted exams where dose is matched to indication/reason for exam; i.e. extremities or head) *Use of iterative reconstruction technique FINDINGS: VASCULAR: The study quality is diagnostic. There is no evidence of pulmonary embolus present. The main pulmonary artery is normal in size. There is mild cardiac enlargement. There is no right heart strain, and there is no reflux of contrast into the IVC. Dual-lead pacer device in place in the left hemithorax, leads extending into the right atrium and right ventricle. The aorta is nonaneurysmal. There is mild to moderate calcific atheromatous disease present. There is no evidence of acute aortic syndrome. Great vessels branch normally. There is heavy calcification just after the ostium of the left subclavian artery with approximately 60% focal stenosis present (series 7, image 28). LUNGS: There is mosaic attenuation within the lower lobes, particularly notable in the left lower lobe. This is not entirely specific, but most likely relates to air trapping. Mild associated small airway thickening noted, especially in the lower lobe distributions. There are a numerous scattered groundglass nodules in the upper lobes. For example, a 4 mm groundglass nodule in the central right upper lobe (series 6, image 25) is present. A similar 4 mm groundglass nodule is present in the left upper lobe (series 6, image 26). A 9 mm groundglass nodule is present in the posterior left upper lobe (series 6, image 32). Several additional smaller groundglass nodules are present in the upper lobes. A 3 mm solid nodule is present in the left apex (series 6, image 18). There are no effusions and there is no pneumothorax. There is no consolidative pneumonia. MEDIASTINUM: Normal thyroid. No adenopathy or mass. No pericardial effusion. Mildly patulous esophagus, nonspecific. CHEST WALL: Left-sided pacer generator noted in place. No adenopathy or mass. IMAGED UPPER ABDOMEN: There is a lobular 3.3 cm cyst in segment 3 of the liver. Liver, gallbladder, and remainder the imaged upper abdominal structures appear normal. OSSEOUS STRUCTURES: CT/CT angio chest PE protocol IMPRESSION: 1. There is no evidence of pulmonary embolus or right heart strain. There is no evidence of acute aortic syndrome or aneurysm. 2. There is mild cardiac enlargement present. 3. There are numerous upper lobe pure groundglass nodules measuring up to 9 mm, most likely inflammatory or infectious in etiology. Attention on short interval follow-up imaging recommended. 4. There is mosaic attenuation in the lower lobes, most notable left lower lobe, most likely on the basis of air trapping. Differential includes constrictive (obliterative) bronchiolitis, hypersensitivity pneumonitis, as well as less commonly bronchial asthma, and vasculitis. 5. Left-sided dual-lead pacer. 6. Additional ancillary findings as discussed in the body of the report. Electronically signed by: Kilo Stafford MD 01/27/2025 12:11 PM EDT
[2025-01-27] MEDS: iohexoL 350 MG/ML 100 ML INFUS..BTL IV (11:30)
--- OUTSIDE RECORDS SUMMARY | 2025-01-27 12:02 | XMS_ITS | Encounter Summary ---
Author Organization [facility] Address [address] [place] [address] Care Team Providers Care Shipyard Supervisor Name Role Phone Elvin Christianson MD Primary Care Provider [phone] Encounter Details Date Type Department Care Team (Late st Contact Info) Description 12/18/2024 Lab Requisition [facility] - Main Lab [address] [facility] [place] [phone] Jhonny Acevedo PA [address] [facility] [address] [place] [address] Chronic kidney disease, unspecified; Magnesium deficiency; Hypokalemia Social History Tobacco Use Types Packs/Day Years Used Date Smoking Tobacco: Never Smokeless Tobacco: Never Alcohol Use Standard Drinks/Week Comments Yes 0 (1 standard drink = 0.6 oz pur e alcohol) Comments Unknown Sex and Gender Information Value Date Recorded Sex Assigned at Female 10/03/2024 4:17 PM EST Legal Sex Female 3:24 AM EST Gender Identity Female 10/03/2024 4:17 PM EST Sexual Orientation Choose not to disclose 2024 4:17 PM EST documented as of this encounter Plan of Treatment Not on file documented as of this encounter Procedures Procedure Name Priority Date/Time Associated Diagnosis Comments POTASSIUM Routine 12/18/2024 12:00 AM EDT Chronic kidney disease, unspecified Magnesium deficiency Hypokalemia MAGNESIUM Routine 12/18/2024 12:00 AM EDT Chronic kidney disease, unspecified Magnesium deficiency Hypokalemia documented in this encounter Results * Potassium (12/18/2024 12:00 AM EDT) Potassium 4.0 3.5 - 5.5 mmol/L LAB CHEMISTRY METHOD 12/18/2024 7:03 PM EDT [facility] Blood Venous blood specimen / Unknown 12/18/2024 12/18/2024 6:38 PM EDT Jhonny LYONS LAB BLOOD ORDERABLES Final Res ult Performing Organization Address City/[facility]/ZIP Co de Phone Number [facility] [address] [place] [address], [place] [phone] * Magnesium (12/18/2024 12:00 AM EDT) Magnesium 1.9 1.9 - 2.6 mg/dL LAB CHEMISTRY METHOD 12/18/2024 7:35 PM EDT [facility] Blood Venous blood specimen / Unknown 12/18/2024 12/18/2024 6:38 PM EDT Jhonny LYONS LAB BLOOD ORDERABLES Final Res ult Performing Organization Address City/[facility]/ZIP Co de Phone Number [facility] [address] [place] [address], [place] [phone] documented in this encounter Visit Diagnoses Diagnosis Chronic kidney disease, unspecified Magnesium deficiency Disorders of magnesium metabolism Hypokalemia Hypopotassemia documented in this encounter Care Teams Shipyard Supervisor Relationship Specialty Start Date End Date Elvin Christianson MD [address] [address] PCP - General Internal Medicine 01/09/18 documented as of this encounter
[2025-01-28 05:12] LABS: Creatinine POC 1.1 mg/dL (0.5-1.4); GFR POC 48
== END 2025-01-27 10:43 | disposition home or self-care (01) ==
LOC: HO.CT 10:42
PROVIDERS: Visit Provider Hospitalist
DX: R91.8 Other nonspecific abnormal finding of lung field (principal); I26.99 Other pulmonary embolism without acute cor pulmonale
CPT/HCPCS: 71275; 82565; Q9967

== ENCOUNTER → 2025-01-27 10:45 | Outpatient (BNV) | payer MEDICARE, OTHER, SELFPAY | PROVIDERS: Visit Provider Radiology Diagnostic Radiology | DX: R91.8 Other nonspecific abnormal finding of lung field (principal) | CPT/HCPCS: 71275 ==

== ENCOUNTER 2025-02-04 14:04 | Outpatient (AMB) | payer MEDICARE, OTHER, SELFPAY ==
[2025-02-04 14:07] VITALS: BP 126/52; PULSE 83; O2SAT 97; BMI 20.9
--- NOTE | 2025-02-04 14:07 | MHC.OFFVIS ---
Vital Signs 02/04/25 14:07 Height 5 ft 3 in Weight 117 lb 15.157 oz BMI 20.9 BP 126/52 L Blood Pressure Location Lt brachial Position Sitting Pulse 83 Pulse Source Pulse Oximeter Pulse Oximetry (%) 97 Oxygen Delivery Method Room Air Intake Visit Reasons: COPD Adjunct Faculty For Medical Terminology Required: No Accompanied by: Self / Same As Patient Allergies oxycodone Adverse Reaction (Severe, Verified 02/04/25 14:10) Nausea and Vomiting HPI Comments Details: The patient is an 89-year-old woman known history of asthma COPD overlap syndrome. She also has to history of cough in addition to reflux disease. Overall she has been doing well on the current respiratory regimen. Unfortunately, she was not able to get her nebulizer because of issues with her coverage and also getting her machine from the [employer] does requested. The patient does need a nebulizer specially during the spring and summer months for her respiratory status gets worse. One her to have everything available to treat herself effectively home. In the meantime the patient does have reflux symptoms. We did discuss the reflux diet and also had been taking omeprazole with good effect in the past. 05/11/2022 the patient is here for a pulmonary follow-up visit. Overall the patient has been doing better. Her cough is better overall. She continues to respiratory medication. She is also using her nasal sprays. Does have nasal congestion but overall better. Patient did have a CT scan of the chest at [facility] which was personally by me. Her pulmonary nodules are stable and appears stable more than 2 years. Therefore at this point she will not need more serial CT scans unless she has any worsening symptoms or any new symptoms. The patient did have some slight haziness at the bases but no significant scarring noted. Clinically she is doing well. 05/02/2023 the patient is here for a pulmonary follow-up visit. For last few days she started developing a cough. It appears to be more a croupy cough sometimes she does bring up some phlegm. Also complaining of chest tightness and shortness of breath. She does have a nebulizer but she ran out of the nebulized solutions therefore she has minimal to use it. She has been using her respiratory medications with only partial resolution of symptoms. She is actively coughing in the office and is in the croupy. It appears to be consistent with viral syndrome although could develop into a bacterial process. Will go ahead and send her a course of antibiotics and also she will need prednisone for the wheezing and the asthma exacerbation. She needs to be using her nebulizer so therefore I will send her I am feels for her nebulizer machine. The patient will continue to use her maintenance therapy. The patient is no better she needs to call the office. Otherwise follow-up in 6 months. 10/31/2023 the patient is here for sick visit. She developing worsening cough. She has been sick now for about 3 weeks. Initially she was coughing some lose sticky white phlegm. She felt congested. She has been using her nebulizer with good improvement of her symptoms. Although is only temporary. She has been using it twice a day now. Seems to be little better. Now her chest congestion has gotten a little heavier. The mucus is darker and thick in color and difficult to expectorate. She is concerned because she does not want a have worsening of her breathing she has a hard time already. On exam she does have any significant wheezing although she does have some crackles at the bases. Will go ahead and treat her for bronchopneumonia. The patient should have a chest x-ray and she has not had blood work and sometimes will go ahead and do that as well. Will go ahead and send her prescription for Augmentin. If the patient is not getting better I did give her a sputum cup in order for her to provide us a sputum culture. 02/05/2024 The patient is here for a pulmonary follow up visit. She is feeling better. Completed the abx and prednisone. Has continued to use her respiratory therapy. Nebs as needed for now. CXR personally reviewed by me with bronchiectatic looking airways and minimal opacity of the right hemithorax.. Her bloodwork was reassuring with a strong immune system. 11/04/2024 the patient is here for hospital follow-up visit. Apparently she was in her usual state health until September when she started developing worsening cough. She did call to see if she can be seen but we had no availability. She did go to an urgent care. She was treated with some antibiotics. Although her symptoms persisted started getting significantly weak and fatigued. She went back to the urgent care and she was found to have a heart rate in the low 40s. She was sent to the hospital where she was evaluated by Cardiology and recommended to get a pacemaker. 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 In addition to that when she went to [facility] ER for that evaluation she did undergo a CTA that demonstrated bilateral pulmonary emboli. She also had ground-glass opacities bilaterally with consolidations at the bases and her influenza test was positive for influenza A. Therefore likely she developed post flu bacterial pneumonia. She was treated in the hospital with Eliquis for the PE and also was given additional therapies. She was released. She denies being placed on any antibiotics. Although she had completed a course of doxycycline sometime in September. Her respiratory exam is reassuring. I did review her CT scan personally by me demonstrating the findings as stated above. She also has a 5 mm pulmonary nodule that appears to be new. Denies any history of cancer. She is no longer getting colonoscopies her mammograms are up-to-date and she is not aware of any history of cancer. I explained to her that with the unprovoked event if indeed there were unprovoked that we need to follow-up pulmonary nodule closely since his new. The patient may also want to get a CT scan of the abdomen. While she was leaving the office to make an appointment the patient started feeling dizzy and had to sit down and then she had to lay down. We did check her systolic blood pressure was 80/40 heart rate was 97. Pulse ox was stable. The patient was placed on a stretcher and then she started feeling better her blood pressure did improve to 120/80. Although the patient was starting to feel better she was still recommended to go to the ER for evaluation. The patient agreed and she was transferred over. 02/04/2025 the patient is here for pulmonary follow-up visit. Overall she is doing a lot better. During the last visit she felt weak in her blood pressure was low. She was found to be dehydrated she was given fluids. She was also found to have some electrolyte derangements with a magnesium that was critically low and she had been anemic. Will go ahead and request blood work at her convenience. Respiratory lowe the patient is doing well no issues. She did have a CTA that we did personally reviewed demonstrating no evidence of any blood clots. No evidence of any concerning nodular densities or any parenchymal disease. She does tolerate the Eliquis. She has been tolerating the Eliquis, although, she does bruise up a little bit. [facility] Medical History (Updated 11/06/24 @ 10:10 by Roshan Monk MD) Pulmonary embolism, bilateral Bronchopneumonia Asthma-COPD overlap syndrome Pulmonary nodules Cough Chronic allergic rhinitis Asthma Gastroesophageal reflux disease with esophagitis Social History Patient Tobacco Use Status: Never used Tobacco Review of Systems Const Denies fatigue and Denies night sweats ENT Denies change in voice, Denies dizziness, Denies lip swelling, Denies mouth pain, Reports nasal congestion and Denies tongue swelling Card Denies chest pain, Denies lightheadedness and Reports dyspnea on exertion Resp Reports chest congestion, Reports cough, Reports dyspnea on exertion and Denies wheezing GI Denies abdominal pain Musc Reports myalgias Neuro Denies Neuro-related abnormal movements and Denies dizziness Psych Denies no additional complaints Endo Denies fatigue Manuel/Lymph Denies easy bleeding and Denies lymphadenopathy Aller/Immun Denies lip swelling, Denies tongue swelling and Denies wheezing Physical Exam Vital Signs: Last Vital Signs Pulse 83 02/04/25 14:07 BP 126/52 L 02/04/25 14:07 Pulse Ox 97 02/04/25 14:07 Oxygen Delivery Method Room Air 02/04/25 14:07 BMI result Body Mass Index 20.9 Const General: alert HEENT General nose exam: Nasal discharge present Neck Neck: Yes normal visual inspection, Yes full ROM and Yes no lymphadenopathy Chest Chest palpation & inspection: normal inspection of the chest Resp Effort & Inspection: normal respiratory effort Auscultation: no rales, no rhonchi, no wheezes and diminished lung sounds Cardio Rate: regular rate Rhythm: regular rhythm Heart sounds: S1 normal heart sound present and S2 normal heart sound present GI Palpation (GI): Soft to palpation and nontender Auscultation: normal bowel sounds General: Yes no CVA tenderness Back/Spine/Pelvis Back: no CVA tenderness Results Reviewed Results Reviewed: [address] [address] [address] Scan Report Signed Patient: Daniela Mcfadden MR#: [id number] : 1935 Acct:[id number] Age/Sex: 89 / F ADM Date: 01/27/25 Loc: HO.CT Attending Dr: Roshan Monk MD Ordering Physician: Roshan Monk MD Date of Service: 01/27/25 Procedure(s): CT angio chest PE protocol Accession Number(s): [id number] cc: Roshan Monk MD~ Report Number: [id number]: Total DLP = 166.00 mGy-cm EXAMINATION: CT ANGIOGRAM CHEST CLINICAL INFORMATION: Other nonspecific abnormal finding of lung field. 89-year-old female. COMPARISON: No prior chest CT available. TECHNIQUE: Multiple axial images were obtained through the chest after the administration of 65 mL of Omnipaque 350 intravenous contrast. Extensive vascular post-processing including two-dimensional and three-dimensional reformatted images were created and reviewed on an independent workstation. This CT examination was performed using dose optimization techniques as appropriate, variously including the following: *Automated exposure control *Adjustment of mA and/or kV according to patient size (this includes techniques or standardized protocols for targeted exams where dose is matched to indication/reason for exam; i.e. extremities or head) *Use of iterative reconstruction technique FINDINGS: VASCULAR: The study quality is diagnostic. There is no evidence of pulmonary embolus present. The main pulmonary artery is normal in size. There is mild cardiac enlargement. There is no right heart strain, and there is no reflux of contrast into the IVC. Dual-lead pacer device in place in the left hemithorax, leads extending into the right atrium and right ventricle. The aorta is nonaneurysmal. There is mild to moderate calcific atheromatous disease present. There is no evidence of acute aortic syndrome. Great vessels branch normally. There is heavy calcification just after the ostium of the left subclavian artery with approximately 60% focal stenosis present (series 7, image 28). LUNGS: There is mosaic attenuation within the lower lobes, particularly notable in the left lower lobe. This is not entirely specific, but most likely relates to air trapping. Mild associated small airway thickening noted, especially in the lower lobe distributions. There are a numerous scattered groundglass nodules in the upper lobes. For example, a 4 mm groundglass nodule in the central right upper lobe (series 6, image 25) is present. A similar 4 mm groundglass nodule is present in the left upper lobe (series 6, image 26). A 9 mm groundglass nodule is present in the posterior left upper lobe (series 6, image 32). Several additional smaller groundglass nodules are present in the upper lobes. A 3 mm solid nodule is present in the left apex (series 6, image 18). There are no effusions and there is no pneumothorax. There is no consolidative pneumonia. MEDIASTINUM: Normal thyroid. No adenopathy or mass. No pericardial effusion. Mildly patulous esophagus, nonspecific. CHEST WALL: Left-sided pacer generator noted in place. No adenopathy or mass. IMAGED UPPER ABDOMEN: There is a lobular 3.3 cm cyst in segment 3 of the liver. Liver, gallbladder, and remainder the imaged upper abdominal structures appear normal. OSSEOUS STRUCTURES: CT/CT angio chest PE protocol IMPRESSION: 1. There is no evidence of pulmonary embolus or right heart strain. There is no evidence of acute aortic syndrome or aneurysm. 2. There is mild cardiac enlargement present. 3. There are numerous upper lobe pure groundglass nodules measuring up to 9 mm, most likely inflammatory or infectious in etiology. Attention on short interval follow-up imaging recommended. 4. There is mosaic attenuation in the lower lobes, most notable left lower lobe, most likely on the basis of air trapping. Differential includes constrictive (obliterative) bronchiolitis, hypersensitivity pneumonitis, as well as less commonly bronchial asthma, and vasculitis. 5. Left-sided dual-lead pacer. 6. Additional ancillary findings as discussed in the body of the report. Electronically signed by: Kilo Stafford MD 01/27/2025 12:11 PM EDT Dictated By: Kilo Stafford MD Signed By: <Electronically signed by Kilo Stafford MD in OV> 01/27/25 1211 DD/ 1118 TD/TT: 01/27/25 1132 Elevating Grader Operator: Assessment & Plan Assessment & Plan (1) Asthma: Code(s): J45.909 - Unspecified asthma, uncomplicated Category: Medical Qualifiers: Asthma complication type: with acute exacerbation Asthma persistence: persistent Asthma severity: moderate Qualified Code(s): J45.41 - Moderate persistent asthma with (acute) exacerbation (2) Gastroesophageal reflux disease with esophagitis: Code(s): K21.00 - Gastro-esophageal reflux disease with esophagitis, without bleeding Category: Medical Qualifiers: Esophagitis bleeding: without hemorrhage Qualified Code(s): K21.00 - Gastro-esophageal reflux disease with esophagitis, without bleeding (3) Pulmonary nodules: Code(s): R91.8 - Other nonspecific abnormal finding of lung field Category: Medical (4) Cough: Code(s): R05 - Cough Category: Medical Qualifiers: Cough type: chronic Qualified Code(s): R05.3 - Chronic cough (5) Asthma-COPD overlap syndrome: Code(s): J44.9 - Chronic obstructive pulmonary disease, unspecified Category: Medical Plan continue Symbicort ASHLIE as needed Continue Astelin nasal spray Continue Singulair Reflux diet bloodwork F/U spring Orders: Orders Magnesium Today R91.8 - Other nonspecific abnormal finding of lung field Complete Blood Count Auto Diff Today R91.8 - Other nonspecific abnormal finding of lung field Basic Metabolic Panel Today R91.8 - Other nonspecific abnormal finding of lung field Coding Level of Care Code Est Pt Level 4 (69270) Complex EM visit Add On G2211 Diagnoses Moderate persistent asthma with acute exacerbation J45.41 Asthma complication type: with acute exacerbation Asthma persistence: persistent Asthma severity: moderate Gastroesophageal reflux disease with esophagitis without hemorrhage K21.00 Esophagitis bleeding: without hemorrhage Pulmonary nodules R91.8 Chronic cough R05.3 Cough type: chronic Asthma-COPD overlap syndrome J44.9 Time Spent (min) 17
--- OUTSIDE RECORDS SUMMARY | 2025-02-04 17:08 | XMS_ITS | Encounter Summary ---
Author Organization [facility] Address [address] [place] [address] Care Team Providers Care Medical Physics Researcher Name Role Phone Elvin Christianson MD Primary Care Provider [phone] Encounter Details Date Type Department Care Team (Late st Contact Info) Description 12/18/2024 Lab Requisition [facility] - Main Lab [address] [facility], [facility] [place] [id number] Jhonny Acevedo PA [address] [facility] [address] [place] [address] Chronic kidney disease, unspecified; Magnesium deficiency; Hypokalemia [...] LAB CHEMISTRY METHOD 12/18/2024 7:03 PM EDT [facility] Blood Venous blood specimen / Unknown 12/18/2024 12/18/2024 6:38 PM EDT Jhonny LYONS LAB BLOOD ORDERABLES Final Res ult Performing Organization Address City/[facility]/ZIP Co de Phone Number [facility] [address] [place] [address], [place] [phone] * Magnesium (12/18/2024 12:00 AM EDT) Magnesium 1.9 1.9 - 2.6 mg/dL LAB CHEMISTRY METHOD 12/18/2024 7:35 PM EDT [facility] Blood Venous blood specimen / Unknown 12/18/2024 12/18/2024 6:38 PM EDT Jhonny LYONS LAB BLOOD ORDERABLES Final Res ult Performing Organization Address City/[facility]/ZIP Co de Phone Number [facility] [address] [place] [address], [place] [phone] documented in this encounter Visit Diagnoses Diagnosis Chronic kidney disease, unspecified Magnesium deficiency Disorders of magnesium metabolism Hypokalemia Hypopotassemia documented in this encounter Care Teams Medical Physics Researcher Relationship Specialty Start Date End Date Elvin Christianson MD [address] [address] PCP - General Internal Medicine 01/09/18 documented as of this encounter
== END 2025-02-04 15:38 | disposition home or self-care (01) ==
LOC: HO.HPS 14:04
PROVIDERS: Visit Provider Hospitalist
DX: J45.41 Moderate persistent asthma with (acute) exacerbation (principal); K21.00 Gastro-esophageal reflux disease with esophagitis, without bleeding; R91.8 Other nonspecific abnormal finding of lung field; R05.3 Chronic cough; J44.9 Chronic obstructive pulmonary disease, unspecified
CPT/HCPCS: 99214; G2211

== ENCOUNTER → 2025-02-04 14:04 | Outpatient (BNVA) | payer MEDICARE, OTHER, SELFPAY | PROVIDERS: Visit Provider Hospitalist | DX: J45.41 Moderate persistent asthma with (acute) exacerbation (principal); J44.9 Chronic obstructive pulmonary disease, unspecified; K21.00 Gastro-esophageal reflux disease with esophagitis, without bleeding; R91.8 Other nonspecific abnormal finding of lung field; R05.3 Chronic cough | CPT/HCPCS: 99212 ==

== ENCOUNTER 2025-02-07 10:34 | Outpatient (REF) | payer MEDICARE, OTHER, SELFPAY ==
[2025-02-07 10:42] LABS: MANUAL DIFF FLAG NO
--- OUTSIDE RECORDS SUMMARY | 2025-02-07 11:23 | XMS_ITS | Encounter Summary ---
Author Organization [facility] Address [address] [place] [address] Care Team Providers Care Detective Captain Name Role Phone Elvin Christianson MD Primary Care Provider [phone] Encounter Details Date Type Department Care Team (Late st Contact Info) Description 12/18/2024 Lab Requisition [facility] - Main Lab [address] [facility] [id number] Jhonny Acevedo PA [address] [facility] [address] [place] [address] Chronic kidney disease, unspecified; Magnesium deficiency; Hypokalemia [...] LAB CHEMISTRY METHOD 12/18/2024 7:03 PM EDT [facility] Blood Venous blood specimen / Unknown 12/18/2024 12/18/2024 6:38 PM EDT Jhonny LYONS LAB BLOOD ORDERABLES Final Res ult Performing Organization Address City/[facility]/ZIP Co de Phone Number [facility] [address] [place] [address], [place] [phone] * Magnesium (12/18/2024 12:00 AM EDT) Magnesium 1.9 1.9 - 2.6 mg/dL LAB CHEMISTRY METHOD 12/18/2024 7:35 PM EDT [facility] Blood Venous blood specimen / Unknown 12/18/2024 12/18/2024 6:38 PM EDT Jhonny LYONS LAB BLOOD ORDERABLES Final Res ult Performing Organization Address City/[facility]/ZIP Co de Phone Number [facility] [address] [place] [address], [place] [phone] documented in this encounter Visit Diagnoses Diagnosis Chronic kidney disease, unspecified Magnesium deficiency Disorders of magnesium metabolism Hypokalemia Hypopotassemia documented in this encounter Care Teams Detective Captain Relationship Specialty Start Date End Date Elvin Christianson MD [address] [address] PCP - General Internal Medicine 01/09/18 documented as of this encounter
[2025-02-07 11:30] LABS: Basophils Absolute Auto 0.1 X10*3/uL (0.0-0.2); Basophils Percent Auto 0.8 % (0-2); Eosinophils Absolute Auto 0.4 X10*3/uL (0.0-0.4); Eosinophils Percent Auto 4.9 % (0-4); Hematocrit 39.5 % (37.0-47.0); Hemoglobin 13.1 g/dl (12.0-16.0); Imm Gran Abs Auto 0.02 X10*3/uL (0.00-0.03); Imm Gran Pct Auto 0.3 % (0.0-0.4); Lymphocytes Absolute Auto 1.3 X10*3/uL (1.2-4.9); Lymphocytes Percent Auto 16.3 % (20-40); Mean Corpuscular HGB Conc 33.2 g/dl (31.0-35.0); Mean Corpuscular Hemoglobin 30.3 pg (27.0-33.0); Mean Corpuscular Volume 91.4 fL (80.0-98.0); Mean Platelet Volume 10.6 fL (9.4-12.3); Monocytes Absolute Auto 0.5 X10*3/uL (0.1-1.2); Monocytes Percent Auto 5.9 % (2-11); Neutrophils Absolute Auto 5.7 x10*3/uL (2.0-8.3); Neutrophils Percent Auto 71.8 % (45-73); Platelet Count 271 X10*3/uL (160-400); Red Blood Count 4.32 X10*6/uL (4.20-5.50); Red Cell Distribution Width 12.3 % (11.0-16.0)
[2025-02-07 11:50] LABS: Anion Gap 12 (12-20); Blood Urea Nitrogen 27 mg/dL (9-16); Calcium 9.6 mg/dL (8.4-10.2); Carbon Dioxide 29 mmol/L (22-29); Chloride 95 mmol/L (96-108); Estimated Glomerular Filt Rate 37; Glucose Random 146 mg/dL (60-115); Magnesium 1.9 mg/dL (1.6-2.6); Potassium 3.8 mmol/L (3.3-5.1); Sodium 132 mmol/L (135-145)
== END 2025-02-07 10:35 | disposition home or self-care (01) ==
LOC: HO.LAB 10:34
PROVIDERS: Visit Provider Hospitalist
DX: R91.8 Other nonspecific abnormal finding of lung field (principal); I26.99 Other pulmonary embolism without acute cor pulmonale
CPT/HCPCS: 36415; 80048; 83735; 85025

== ENCOUNTER 2025-04-30 08:53 | Outpatient (AMB) | payer MEDICARE, OTHER, SELFPAY ==
--- OUTSIDE RECORDS SUMMARY | 2024-11-18 09:00 | XMS_ITS ---
Author Organization [facility] [place] Address [address] [place] [address] Care Team Providers Care Cushion Mat Maker Name Role Phone Migration, Provider Unavailable Unavailable REASON FOR VISIT Follow-up Appt Encounters Encounter Location Date Provider Diagnosis Pulse [facility], [address] [place] [phone] 11/18/2024 Provider Migration Plan Of Treatment Next Appt Details Provider Name:Henny Bravo, 07/16/2025 11:00:00 AM, [address] [place] [address], Suite [facility], [place], [address], [phone] Progress Notes * GOYO CHANDLERDOB: (89 yo F)Acc No.[id number]:11/18/2024 Progress Notes Patient: GOYO BANKS Provider: Meet Loza :1935 A ge:88 Y S ex:Female Date:11/18/2024 Address:[address] [place] [address] [facility] [id number] Subjective: * Chief Complaints: * F ollow-up Appt * Ocular Surgical History: Objective: Vision Examination: * Electronic signature of Prov ider Migration on 04/30/2025 at 10:28 AM EDT Sign off status: Pending * Provider: Meet beltre Migration Date: 11/18/2024 Generated for Aftab shah/Robin/eTransmitting on: 0 04/30/2025 10:28 AM EDT
--- OUTSIDE RECORDS SUMMARY | 2024-12-18 10:00 | XMS_ITS ---
Author Organization [facility], [place] Address [address] [place] [address] Care Team Providers Care Lumber Hacker Name Role Phone Jhonny Acevedo Unavailable [phone] REASON FOR VISIT Follow-up Appt Encounters Encounter Location Date Provider Diagnosis [address] [place] [phone] 12/18/2024 Jhonny Acevedo Plan Of Treatment Next Appt Details Provider Name:Henny Bravo, 07/16/2025 11:00:00 AM, [address] [place] [address], Suite [facility], [place], [address], [phone] Progress Notes * GOYO CHANDLERDOB: (89 yo F)Acc No.[id number]:12/18/2024 Progress Notes Patient: GOYO BANKS Provider: Dilshad LYONS :1935 A ge:88 Y S ex:Female Date:12/18/2024 Address:[address] [place], [place] [phone] Subjective: * Chief Complaints: * F ollow-up Appt * Ocular Surgical History: Objective: Vision Examination: * Electronic signature of Ozzy Acevedo PA-C on 04/30/2025 at 10:27 AM EDT Sign off status: Pending * Provider: Dilshad LYONS Date: 12/18/2024 Generated for Printi ng/Faxing/eTransmitting on: 0 04/30/2025 10:27 AM EDT
--- OUTSIDE RECORDS SUMMARY | 2025-01-13 06:00 | XMS_ITS ---
Author Organization [facility], [place] Address [address] [place] [address] Care Team Providers Care It Infrastructure Specialist Name Role Phone Jhonny Acevedo Unavailable [phone] REASON FOR VISIT Follow-up Appt Encounters Encounter Location Date Provider Diagnosis [address] [place] [phone] 01/13/2025 Jhonny Acevedo Plan Of Treatment Next Appt Details Provider Name:Henny Bravo, 07/16/2025 11:00:00 AM, [address] [place] [address], Suite [facility], [place], [address], [phone] Progress Notes * GOYO CHANDLERDOB: (89 yo F)Acc No.[id number]:01/13/2025 Progress Notes Patient: GOYO BANKS Provider: Dilshad LYONS :1935 A ge:89 Y S ex:Female Date:01/13/2025 Address:[address] [place], [place] [phone] Subjective: * Chief Complaints: * F ollow-up Appt * Ocular Surgical History: Objective: Vision Examination: * Electronic signature of Ozzy Acevedo PA-C on 04/30/2025 at 10:27 AM EDT Sign off status: Pending * Provider: Dilshad LYONS Date: 01/13/2025 Generated for Printi ng/Faxing/eTransmitting on: 0 04/30/2025 10:27 AM EDT
--- OUTSIDE RECORDS SUMMARY | 2025-04-15 09:30 | XMS_ITS ---
Author Organization [facility] [place] Address [address] [address] [place] [address] Care Team Providers Care Senior Physician Name Role Phone Henny Bravo Unavailable [phone] Allergies No Known Allergies REASON FOR VISIT Follow-up Appt, Patient indicates no concerns at the time appointment Medications Medication SIG (Take, Route, Frequency, Duration) Notes Start Date End Date Status Albuterol Sulfate (2.5 MG/3ML) 0.083% Nebulization Solution 3 mL as needed Inhalation every 6 hrs 04/15/2025 Active Atorvastatin Calcium 40 MG Tablet 1 tablet Orally Once a day; Duration: 90 days Active Torsemide 20 MG Tablet 1 tablet Orally O nce a day 04/15/2025 Active Metoprolol Succinate ER 50 MG Tablet Extended Release 24 Hour 1 tablet Orally Once a day 04/15/2025 Active Spironolactone 25 MG Tablet 1 tablet Ora lly Once a day 04/15/2025 Active Caltrate 600+D3 600-20 MG-MCG Tablet 1 tablet with a meal Orally Once a day Active Eliquis 5 MG Tablet TAKE 1 TABLET BY [facility] TWICE A DAY; Duration: 30 Active Incruse Ellipta 62.5 MCG/ACT Aerosol Powder Breath Activated 1 puff Inhalation Once a day Active Centrum - Liquid as directed Orally Active LORazepam 1 MG Tablet 1 tablet at bedtim e as needed Orally Once a day Active Breo Ellipta 200-25 MCG/ACT Aerosol Powder Breath Activated 1 puff Inhalation Once a day 04/15/2025 Active amLODIPine Besylate 5 MG Tablet 1 tablet Orally Once a day 04/15/2025 Active Omeprazole 40 MG Capsule Delayed Release 1 capsule 1/2 to 1 hour before morning meal Orally Once a day 04/15/2025 Active Montelukast Sodium 10 MG Tablet 1 tablet Orally Once a day 04/15/2025 Active Albuterol Sulfate HFA 108 (90 Base) MCG/ACT Aerosol Solution 1 puff as needed Inhalation every 4 hrs 04/15/2025 Active Social History Section Notes: Nicotine: Never ETOH: Wine occasionally Substances: Denies Vital Signs Blood pressure systolic 132 mm Hg 04/15/20 25 Blood pressure diastolic 69 mm Hg 025 Heart Rate 74 /min 04/15/2025 Respiratory Rate 20 /min 04/15/2025 Weight 124.6 lbs 04/15/2025 Oximetry 98 % 04/15/2025 Weight-kg 56.52 kg 04/15/2025 Encounters Encounter Location Date Provider Diagnosis [facility] [place] [address] [facility] [address] [place] [address] 04/15/2025 Henny Bravo Plan Of Treatment Next Appt Details Provider Name:Henny Bravo, 07/16/2025 11:00:00 AM, [address] [facility], [address], [place], [address], [phone] Progress Notes * GOYO CHANDLERDOB: [birth year] (89 yo F)Acc No.[id number]:04/15/2025 Progress Notes Patient: GOYO BANKS Provider: Lewis Bravo :1935 A ge:89 Y S ex:Female Date:04/15/2025 Address:[address] [place] [address] Subjective: * Chief Complaints: * F ollow-up ApptPatient indicates no concerns at the time appointment * Medical History: Hyperlipidemia COPD Medical History Verified * Surgical History: Pacemaker CTR B/L Surgical History verified. * Hospitalization/Major Diagno stic Procedure: Pacemaker Hospitalization Verified. * Family History: F ather: . M other: . 1 son(s) , 1 daughter(s) - healthy. . Healthcare Proxy- (Jamari). * Social History: Social History Verified. N icotine: Never ETOH: Wine occasionally Substances: Denies. * Medications: T akingSpironolactone 25 MG Tablet 1 tablet Orally Once a day Torsemide 20 MG Tablet 1 tablet Orally Once a day Metoprolol Succinate ER 50 MG Tablet Extended Release 24 Hour 1 tablet Orally Once a day Albuterol Sulfate (2.5 MG/3ML) 0.083% Nebulization Solution 3 mL as needed Inhalation every 6 hrs Breo Ellipta 200-25 MCG/ACT Aerosol Powder Breath Activated 1 puff Inhalation Once a day Albuterol Sulfate HFA 108 (90 Base) MCG/ACT Aerosol Solution 1 puff as needed Inhalation every 4 hrs Omeprazole 40 MG Capsule Delayed Release 1 capsule 1/2 to 1 hour before morning meal Orally Once a day Montelukast Sodium 10 MG Tablet 1 tablet Orally Once a day amLODIPine Besylate 5 MG Tablet 1 tablet Orally Once a day LORazepam 1 MG Tablet 1 tablet at bedtime as needed Orally Once a day Incruse Ellipta 62.5 MCG/ACT Aerosol Powder Breath Activated 1 puff Inhalation Once a day Centrum - Liquid as directed Orally Caltrate 600+D3 600-20 MG-MCG Tablet 1 tablet with a meal Orally Once a day Eliquis 5 MG Tablet TAKE 1 TABLET BY MOUTH TWICE A DAY Atorvastatin Calcium 40 MG Tablet 1 tablet Orally Once a day Taking Spironolactone 25 MG Tablet 1 tablet Orally Once a day Taking Torsemide 20 MG Tablet 1 tablet Orally Once a day Taking Metoprolol Succinate ER 50 MG Tablet Extended Release 24 Hour 1 tablet Orally Once a day Taking Albuterol Sulfate (2.5 MG/3ML) 0.083% Nebulization Solution 3 mL as needed Inhalation every 6 hrs Taking Breo Ellipta 200-25 MCG/ACT Aerosol Powder Breath Activated 1 puff Inhalation Once a day Taking Albuterol Sulfate HFA 108 (90 Base) MCG/ACT Aerosol Solution 1 puff as needed Inhalation every 4 hrs Taking Omeprazole 40 MG Capsule Delayed Release 1 capsule 1/2 to 1 hour before morning meal Orally Once a day Taking Montelukast Sodium 10 MG Tablet 1 tablet Orally Once a day Taking amLODIPine Besylate 5 MG Tablet 1 tablet Orally Once a day Taking LORazepam 1 MG Tablet 1 tablet at bedtime as needed Orally Once a day Taking Incruse Ellipta 62.5 MCG/ACT Aerosol Powder Breath Activated 1 puff Inhalation Once a day Taking Centrum - Liquid as directed Orally Taking Caltrate 600+D3 600-20 MG-MCG Tablet 1 tablet with a meal Orally Once a day Taking Eliquis 5 MG Tablet TAKE 1 TABLET BY MOUTH TWICE A DAY Taking Atorvastatin Calcium 40 MG Tablet 1 tablet Orally Once a day * Allergies: N .K.D.A.yesAllergies Verified. Objective: * Vitals: B P: 132/69 mm Hg, HR: 74 /min, RR: 20 /min, Oxygen sat %: 98 %, Wt: 124.6 lbs, Wt-k.52 kg. * Electronic signature of Yusef Bravo on 04/30/2025 at 10:27 AM EDT Sign off status: Pending * Provider: Lewis Bravo Date: 0 04/15/2025 Generated for Aftab shah/Robin/Flo on: 04/30/2025 10:27 AM EDT
--- NOTE | 2025-04-30 08:55 | A.OFFVIS_ITS ---
Vital Signs 04/30/25 08:56 Height 5 ft 3 in Intake Visit Reasons: 6 month Stroke Allergies oxycodone Adverse Reaction (Severe, Verified 04/30/25 09:00) Nausea and Vomiting Medication List - Last Reconciled 04/30/25 by Annette Corrales CNP albuterol sulfate 90 mcg/actuation 2 puffs PO Q6H PRN albuterol sulfate USE 1 VIAL (3 ML) INHALED 4 TIMES A DAY FOR 30 DAYS amlodipine 5 mg PO DAILY apixaban (Eliquis) 5 mg PO BID atorvastatin mg PO calcium carbonate 600 mg PO DAILY fluticasone furoate-vilanterol 200-25 mcg/dose (Breo Ellipta) 1 inh inhalation DAILY 30 days lactobacillus combination no.8 cells PO PRN lorazepam 1 mg PO BEDTIME PRN metoprolol succinate ER 50 mg PO DAILY montelukast 10 mg PO DAILY jwfucynf-jvrsegw-dukh-lutein tabs PO nebulizers As directed omeprazole 40 mg PO DAILY potassium chloride PO prednisone 5 mg PO DIRECTED 2 weeks spironolactone 25 mg PO DAILY torsemide 20 mg PO DAILY umeclidinium 62.5 mcg/actuation inhalation HPI Comments Details: She was doing okay. No change in vision. No significant headaches or dizziness. Balance was about the same, off at times. No falls. Sleep was okay. Had pacemaker placed in 09/2024. She developed a sharp temporal pain on 07/08/22 and suddenly had visual impairment on her right side. Subsequent MRI couple weeks later showed a left occipital stroke with minor hemorrhagic changes. There's been no improvement in the right visual field and she does not drive. Her headache resolved. She was treated with steroids with a presumptive diagnosis of temporal arteritis initially for a couple weeks to the MRI was done. [facility] Medical History (Updated 04/30/25 @ 09:00 by Annette Corrales CNP) Pulmonary embolism, bilateral Bronchopneumonia Asthma-COPD overlap syndrome Pulmonary nodules Cough Chronic allergic rhinitis Asthma Gastroesophageal reflux disease with esophagitis Social History Patient Tobacco Use Status: Never used Tobacco Review of Systems Const Denies chills, Denies daytime sleepiness, Reports difficulty sleeping, Denies fatigue, Denies fever(s), Denies frequent falls, Denies headache(s), Denies increased appetite, Denies poor appetite, Denies snoring, Denies weakness, Denies weight gain and Denies weight loss Eyes Denies loss of vision ENT Denies vertigo, Denies dizziness, Denies headache(s) and Denies neck pain Card Denies chest pain at rest, Denies chest pain with activity, Denies syncope, Denies leg edema, Denies palpitations, Denies dyspnea and Denies dyspnea on exertion Resp Denies cough, Denies dyspnea, Denies dyspnea on exertion and Denies snoring GI Denies abdominal pain, Denies constipation, Denies heartburn, Denies diarrhea and Denies nausea Denies urinary frequency, Denies urinary incontinence and Denies urinary urgency Musc Denies abnormal gait, Denies back pain, Denies myalgias, Denies arthralgias, Denies neck pain, Denies numbness and Denies tingling Neuro Denies abnormal gait, Denies vertigo, Denies dizziness, Denies syncope, Denies frequent falls, Denies headache(s), Denies lack of coordination, Denies loss of vision, Denies memory loss, Denies numbness, Denies Other visual disturbances, Denies restless legs, Denies seizure-like activity, Denies tingling, Denies paresthesias, Denies tremor(s) and Denies weakness Psych Denies anxiety, Denies depression, Denies auditory hallucinations, Denies memory loss and Denies visual hallucinations Endo Denies fatigue and Denies palpitations Physical Exam Const Other: General Appearance:? normal, in no acute distress. Heart:? S1, S2 normal, no murmurs. Lungs:? clear anteriorly and posteriorly. Musculoskeletal:? normal. Extremities:? no edema. Psych:? alert, oriented, cognitive function intact, cooperative with exam. Neuro Other: Abnormal Neurological Findings:?Complete right homonymous hemianopsia. Mental Status: alert and oriented X 3. Normal attention, orientation, memory, and affect. Cranial Nerves: Pupils are equal, round, and reactive to light. External ocular muscles are intact. Visual dubois with right homonymous hemianopsia, no ptosis. Face is symmetrical, no facial weakness or droop. Facial sensations are normal. Tongue protrudes in midline. Palate elevates symmetrically. Shoulder shrugging is normal Motor Examination: Normal muscle tone, bulk and strength. No atrophy or fasciculations. No drift of the extended upper extremities. DTR 2+. Plantars are flexor. Sensory Exam: Normal light touch, temperature, pinprick, vibration, and joint- position sensations. Rhomberg sign is absent. Coordination: No ataxia. No titubation. Gait Exam: Within normal limits. Cerebellar Signs: Ctubzo-ev-lpxj is okay. Extrapyramidal System: No tremor, rigidity with normal facial expressions. No bradykinesia. No bradyphrenia. Normal arm swing and posture. No propulsion or retropulsion. Speech: Normal. 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 Code(s): I69.30 - Unspecified sequelae of cerebral infarction Category: Medical Plan: Continue Eliquis and statin. Control blood pressure. Coding Level of Care Code Est Pt Level 4 (11945) Diagnoses History of stroke with residual effects I69.30
--- OUTSIDE RECORDS SUMMARY | 2025-04-30 10:27 | XMS_ITS | Patient Health Record ---
Author Organization [facility] [place] Address [address] [place] [address] Care Team Providers Care Spanisher Name Role Phone Jhonny Acevedo Unavailable [phone] Migration, Provider Unavailable Unavailable Henny Bravo Unavailable [phone] Allergies No Known Allergies Reason For Referral No Information Medications Medication SIG (Take, Route, Frequency, Duration) Notes Start Date End Date Status Torsemide 20 MG Tablet 1 tablet Orally O nce a day; Duration: 90 days 04/15/2025 Active Albuterol Sulfate HFA 108 (90 Base) MCG/ACT Aerosol Solution 1 puff as needed Inhalation every 4 hrs 04/15/2025 Active Albuterol Sulfate (2.5 MG/3ML) 0.083% Nebulization Solution 3 mL as needed Inhalation every 6 hrs 04/15/2025 Active Atorvastatin Calcium 40 MG Tablet 1 tablet Orally Once a day; Duration: 90 days Active Breo Ellipta 200-25 MCG/ACT Aerosol Powder Breath Activated 1 puff Inhalation Once a day 04/15/2025 Active Caltrate 600+D3 600-20 MG-MCG Tablet 1 tablet with a meal Orally Once a day Active Metoprolol Succinate ER 50 MG Tablet Extended Release 24 Hour 1 tablet Orally Once a day 04/15/2025 Active Eliquis 5 MG Tablet TAKE 1 TABLET BY MAC TWICE A DAY; Duration: 30 Active Incruse Ellipta 62.5 MCG/ACT Aerosol Powder Breath Activated 1 puff Inhalation Once a day Active Spironolactone 25 MG Tablet 1 tablet Ora lly Once a day 04/15/2025 Active Centrum - Liquid as directed Orally Active amLODIPine Besylate 5 MG Tablet 1 tablet Orally Once a day 04/15/2025 Active LORazepam 1 MG Tablet 1 tablet at bedtim e as needed Orally Once a day Active Omeprazole 40 MG Capsule Delayed Release 1 capsule 1/2 to 1 hour before morning meal Orally Once a day 04/15/2025 Active Montelukast Sodium 10 MG Tablet 1 tablet Orally Once a day 04/15/2025 Active Social History Section Notes: Nicotine: Never ETOH: Wine occasionally Substances: Denies Problems Problem Type SNOMED Code ICD Code Onset Dates Problem Status W/U Status Risk Notes Problem Hyperlipidemia (81634454) Hyperlipidemia, unspecified (E78.5) Active confirmed Problem Long-term current use of anticoagulant (505208180) [facility] (current) use of anticoagulants (Z79.01) Active confirmed Vital Signs Heart Rate 74 /min 04/15/2025 Respiratory Rate 20 /min 04/15/2025 Oximetry 98 % 04/15/2025 Blood pressure diastolic 69 mm Hg 04/15/2025 Weight-kg 56.52 kg 04/15/2025 Blood pressure systolic 132 mm Hg 04/15/2025 Weight 124.6 lbs 04/15/2025 Encounters Encounter Location Date Provider Diagnosis [facility] [address] [address] 05/02/2024 Provider Migration [facility], [address] [address] 08/26/2024 Provider Migration [facility], [address] [address] 08/26/2024 Jhonny Acevedo [facility] [place] [address] [address] 10/03/2024 Provider Migration [facility] [place] [address] [address] 10/03/2024 Jhonny Acevedo [facility] [place] [address] [address] 10/07/2024 Provider Migration [facility] [place] [address] [address] 10/18/2024 Provider Migration [facility] [place] [address] [address] 11/18/2024 Jhonny Acevedo [facility] [place] [address] [address] 11/18/2024 Provider Migration [facility], [address] [place] [address] 12/18/2024 Jhonny Acevedo [facility] [place] [address] [facility] [address] [place] [address] 01/13/2025 Jhonny Acevedo [facility], [address] [place] [address] 04/15/2025 Henny Bravo [facility], [address] [address] 02/19/2025 Henny Franztom Hyperlipidemia, unspecified E78.5 and [facility] (current) use of anticoagulants Z79.01 [facility], [address] [place] [address] 01/31/2025 Jhonny Acevedo [facility], [address] [address] 03/25/2025 Henny Franztom [facility], [address] [address] 04/18/2025 Henny Franztom Assessments Encounter Date Diagnosis (ICD Code) Assessment Notes Treatment Notes Treatment Clinical Notes Section Notes 02/19/2025 Hyperlipidemia, unspecified (ICD-10 - E78.5) No medications were ordered at this time 02/19/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 (ICD-10 - Z79.01) No medications were ordered at this time Plan Of Treatment Next Appt Details Provider Name:Henny Bravo, 07/16/2025 11:00:00 AM, [address] [place] [address], [place], [address], [phone] Insurance Providers Payer Name Payer Address Payer Phone Subscriber Number Group Number Insured Name Patient Relationship to Insured Coverage Start Date Coverage End Date A [employer] [address] [facility] [place]ER [phone] [id number] RAMESH, GOYO Self - patient is the insured [facility] [address] [place] [address] [id number] RAMESH GOYO Self - patient is the insured Medical (General) History Medical History History ICD Code hyperlipidemia COPD Surgical History Surgery Date(Month/Year) Pacemaker CTR B/L Hospitalization History Reason Date(Month/Year) Pacemaker
--- OUTSIDE RECORDS SUMMARY | 2025-04-30 10:27 | XMS_ITS | Encounter Summary ---
Author Organization [facility] Address [address] [place] [address] Care Team Providers Care Master Cook Name Role Phone Elvin Christianson MD Primary Care Provider [phone] Encounter Details Date Type Department Care Team (Late st Contact Info) Description 08/26/2024 Lab Requisition [facility] - Main Lab 299 [facility] [place] [phone] Jhonny Acevedo PA 299 [facility] [address] [place] [address] Other fatigue; Vitamin D deficiency, unspecified; Encounter [...] Hold for add-ons. 08/26/2024 8:01 PM EST [facility] Comment:Auto resulted. Blood Venous blood specimen / Unknown 08/26/2024 08/26/2024 6:23 PM EST us Jhonny LYONS LAB BLOOD ORDERABLES Final Res ult [facility] [address] [place] [address], [place] [phone] * (ABNORMAL) CBC auto differential (08/26/2024 12:00 AM EST) [facility] WBC 8.3 4.8 - 10.8 K/mcL LAB HEMETOLOGY METHOD 08/26/2024 7:14 PM [facility] RBC 3.90 3.80 - 4.80 M/mcL LAB HEMETOLOGY METHOD 08/26/2024 7:14 PM [facility] Hemoglobin 12.1 11.5 - 16.0 g/dL LAB HEMETOLOGY METHOD 08/26/2024 7:14 PM [facility] Hematocrit 35.9 35.0 - 47.0 % LAB HEMETOLOGY METHOD 08/26/2024 7:14 PM [facility] MCV 92.5 79.0 - 98.0 FL LAB HEMETOLOGY METHOD 08/26/2024 7:14 PM EST [facility] MCH 31.2 27.0 - 32.0 pcg LAB HEMETOLOGY METHOD 08/26/2024 7:14 PM [facility] MCHC 33.7 32.0 - 37.0 g/dL LAB HEMETOLOGY METHOD 08/26/2024 7:14 PM [facility] RDW 12.4 11.0 - 15.0 % LAB HEMETOLOGY METHOD 08/26/2024 7:14 PM [facility] Platelets 270 130 - 400 K/mcL LAB HEMETOLOGY METHOD 08/26/2024 7:14 PM [facility] MPV 10.8 7.0 - 11.0 FL LAB HEMETOLOGY METHOD 08/26/2024 7:14 PM [facility] NRBC 0.0 <1.0 % LAB HEMETOLOGY METHOD 08/26/2024 7:14 PM [facility] NRBC Absolute 0.00 <0.10 K/mcL LAB HEMETOLOGY METHOD 08/26/2024 7:14 PM [facility] Neutrophils Relative 75.6 % LAB HEMETOLOGY METHOD 08/26/2024 7:14 PM [facility] Lymphocytes Relative 14.9 % LAB HEMETOLOGY METHOD 08/26/2024 7:14 PM [facility] Monocytes Relative 6.5 % LAB HEMETOLOGY METHOD 08/26/2024 7:14 PM [facility] Eosinophils Relative 1.8 % LAB HEMETOLOGY METHOD 08/26/2024 7:14 PM [facility] Basophils Relative 0.7 % LAB HEMETOLOGY METHOD 08/26/2024 7:14 PM [facility] Immature Granulocytes Relative 0.5 % LAB HEMETOLOGY METHOD 08/26/2024 7:14 PM [facility] Neutrophils Absolute 6.25 1.50 - 7.00 K/mcL LAB HEMETOLOGY METHOD 08/26/2024 7:14 PM [facility] Lymphocytes Absolute 1.23 1.00 - 5.00 K/mcL LAB HEMETOLOGY METHOD 08/26/2024 7:14 PM [facility] Monocytes Absolute 0.54 0.20 - 1.00 K/mcL LAB HEMETOLOGY METHOD 08/26/2024 7:14 PM [facility] Eosinophils Absolute 0.15 0.00 - 0.50 K/mcL LAB HEMETOLOGY METHOD 08/26/2024 7:14 PM [facility] Basophils Absolute 0.06 0.00 - 0.20 K/mcL LAB HEMETOLOGY METHOD 08/26/2024 7:14 PM [facility] Immature Granulocytes Absolute 0.04(H) 0.00 - 0.03 K/mcL LAB HEMETOLOGY METHOD 08/26/2024 7:14 PM [facility] Blood Venous blood specimen / Unknown 08/26/2024 08/26/2024 6:23 PM EST us Jhonny LYONS LAB BLOOD ORDERABLES Final Res ult [facility] [address] [place] [address], [place] [phone] * Vitamin D 25 hydroxy (08/26/2024 12:00 AM EST) Vit D, 25-Hydroxy 33.2 30.0 - 80.0 ng/mL LAB CHEMISTRY METHOD 08/26/2024 9:02 PM EST [facility] Blood Venous blood specimen / Unknown 08/26/2024 08/26/2024 6:23 PM EST us Jhonny LYONS LAB BLOOD ORDERABLES Final Res ult Performing Organization Address City/[facility]/ZIP Co de Phone Number [facility] [address] [place] [address], [place] [phone] * Thyroid stimulating hormone (08/26/2024 12:00 AM EST) TSH 1.23 0.40 - 4.00 mcIU/mL LAB CHEMISTRY METHOD 08/26/2024 9:09 PM EST [facility] Blood Venous blood specimen / Unknown 08/26/2024 08/26/2024 6:23 PM EST us Jhonny LYONS LAB BLOOD ORDERABLES Final Res ult [facility] [address] [place] [address], [place] [phone] * Hemoglobin A1c (08/26/2024 12:00 AM EST) Hemoglobin A1C 5.9 <6.5 % LAB CHEMISTRY METHOD 08/27/2024 2:33 PM EST [facility] Mean Bld Glu Estim. 123 mg/dL LAB CHEMISTRY METHOD 08/27/2024 2:33 PM EST [facility] Blood Venous blood specimen / Unknown 08/26/2024 08/26/2024 6:23 PM EST Jhonny LYONS LAB BLOOD ORDERABLES Final Res ult [facility] [address] [place] [address], [place] [phone] * Thyroxine free (08/26/2024 12:00 AM EST) Pathologist [facility] Free T4 1.36 0.70 - 1.80 ng/dL LAB CHEMISTRY METHOD 08/26/2024 9:02 PM EST [facility] Blood Venous blood specimen / Unknown 08/26/2024 08/26/2024 6:23 PM EST Jhonny LYONS LAB BLOOD ORDERABLES Final Res ult Performing Organization Address City/[facility]/ZIP Co de Phone Number [facility] [address] [place] [address], [place] [phone] * (ABNORMAL) Vitamin B12 (08/26/2024 12:00 AM EST) [facility] Vitamin B-12 204(L) 250 - 900 pcg/mL LAB CHEMISTRY METHOD 08/26/2024 8:06 PM EST [facility] Blood Venous blood specimen / Unknown 08/26/2024 08/26/2024 6:23 PM EST us Jhonny LYONS LAB BLOOD ORDERABLES Final Res ult Performing Organization Address City/[facility]/ZIP Co de Phone Number [facility] [address] [place] [address], * (ABNORMAL) Comprehensive metabolic panel (08/26/2024 12:00 AM EST) Sodium 133 133 - 145 mmol/L LAB CHEMISTRY METHOD 08/26/2024 8:06 PM [facility] Potassium 3.4(L) 3.5 - 5.5 mmol/L LAB CHEMISTRY METHOD 08/26/2024 8:06 PM [facility] Chloride 99 96 - 110 mmol/L LAB CHEMISTRY METHOD 08/26/2024 8:06 PM [facility] CO2 25 21 - 32 mmol/L LAB CHEMISTRY METHOD 08/26/2024 8:06 PM [facility] Anion Gap 9 3 - 11 LAB CHEMISTRY METHOD 08/26/2024 8:06 PM [facility] Glucose 104(H) 70 - 100 mg/dL LAB CHEMISTRY METHOD 08/26/2024 8:06 PM [facility] BUN 17 5 - 25 mg/dL LAB CHEMISTRY METHOD 08/26/2024 8:06 PM [facility] Creatinine 1.13(H) 0.50 - 1.10 mg/dL LAB CHEMISTRY METHOD 08/26/2024 8:06 PM [facility] eGFR 47(L) >=60 mL/min/1. 73m2 LAB CHEMISTRY METHOD 08/26/2024 8:06 PM [facility] Comment:Calculation based on the Chronic Kidney Disease Epidemiology Collaboration (CKD-EPI) equation refit without adjustment for race. BUN/Creatinine Ratio 15.0 LAB CHEMISTRY METHOD 08/26/2024 8:06 PM [facility] Calcium 8.8 8.5 - 10.5 mg/dL LAB CHEMISTRY METHOD 08/26/2024 8:06 PM [facility] AST (SGOT) 19 10 - 42 unit/L LAB CHEMISTRY METHOD 08/26/2024 8:06 PM [facility] ALT (SGPT) 27 10 - 60 unit/L LAB CHEMISTRY METHOD 08/26/2024 8:06 PM EST [facility] Alkaline Phosphatase 81 42 - 121 unit/L LAB CHEMISTRY METHOD 08/26/2024 8:06 PM [facility] Total Protein 7.2 6.0 - 8.0 g/dL LAB CHEMISTRY METHOD 08/26/2024 8:06 PM [facility] Albumin 4.1 3.2 - 5.0 g/dL LAB CHEMISTRY METHOD 08/26/2024 8:06 PM [facility] Total Bilirubin 0.6 0.0 - 1.4 mg/dL LAB CHEMISTRY METHOD 08/26/2024 8:06 PM [facility] Blood Venous blood specimen / Unknown 08/26/2024 08/26/2024 6:23 PM EST Jhonny LYONS LAB BLOOD ORDERABLES Final Res ult [facility] [address] [place] [address], documented in this encounter Visit Diagnoses Diagnosis Other fatigue Vitamin D deficiency, unspecified Encounter for screening for diabetes mellitus Essential (primary) hypertension Unspecified essential hypertension documented in this encounter Additional Health Concerns Infection Onset Date Last Indicated Resolved Time Respiratory Rule-Out 10/03/2024 10/03/2024 025 3:11 PM EST COVID-19 Rule-Out 10/03/2024 10/03/2024 10/03/2024 3:11 PM EST documented as of this encounter Care Teams Master Cook Relationship Specialty Start Date End Date Elvin Christianson MD [address] [address] PCP - General Internal Medicine 01/09/18 documented as of this encounter
--- OUTSIDE RECORDS SUMMARY | 2025-04-30 10:27 | XMS_ITS | Encounter Summary ---
Author Organization [facility] Address [address] [place] [address] Care Team Providers Care Midwife Practitioner Name Role Phone Elvin Christianson MD Primary Care Provider [phone] Encounter Details Date Type Department Care Team (Late st Contact Info) Description 12/18/2024 Lab Requisition [facility] - Main Lab 299 [facility] [place] [phone] Jhonny Acevedo PA 299 [facility] [address] [place] [address] Chronic kidney disease, unspecified; Magnesium deficiency; Hypokalemia [...] LAB CHEMISTRY METHOD 12/18/2024 7:03 PM EDT [facility] Blood Venous blood specimen / Unknown 12/18/2024 12/18/2024 6:38 PM EDT Jhonny LYONS LAB BLOOD ORDERABLES Final Res ult Performing Organization Address City/[facility]/ZIP Co de Phone Number [facility] [address] [place] [address], [place] [phone] * Magnesium (12/18/2024 12:00 AM EDT) Magnesium 1.9 1.9 - 2.6 mg/dL LAB CHEMISTRY METHOD 12/18/2024 7:35 PM EDT [facility] Blood Venous blood specimen / Unknown 12/18/2024 12/18/2024 6:38 PM EDT Jhonny LYONS LAB BLOOD ORDERABLES Final Res ult Performing Organization Address City/[facility]/ZIP Co de Phone Number [facility] [address] [place] [address], [place] [phone] documented in this encounter Visit Diagnoses Diagnosis Chronic kidney disease, unspecified Magnesium deficiency Disorders of magnesium metabolism Hypokalemia Hypopotassemia documented in this encounter Care Teams Midwife Practitioner Relationship Specialty Start Date End Date Elvin Christianson MD [address] [address] PCP - General Internal Medicine 01/09/18 documented as of this encounter
--- OUTSIDE RECORDS SUMMARY | 2025-04-30 10:28 | XMS_ITS ---
Author Name [facility] Organization Unknown History of Medication Use Medication Directions Dispensed Refills Start Date End Date Stat us ibuprofen 600 mg tablet TAKE 1 TABLET BY MOUTH 3 TIMES A DAY NEEDED FOR PAIN (MAX 2400 MG/DAY) 02/23/2023 completed oxycodone 5 mg tablet TAKE 1 TABLET BY MOUTH EVERY 6 HOURS NEEDED FOR PAIN 02/23/2023 completed albuterol sulfate HFA 90 mcg/actuation aerosol inhaler INHALE 2 PUFFS BY MOUTH EVERY 6 HOURS NEEDED active amoxicillin 500 mg capsule TAKE 4 TABS 1 HOUR PRIOR TO DENTAL APPOINTMENT active atorvastatin 40 mg tablet TAKE 1 TABLET BY MOUTH EVERY DAY active Incruse Ellipta 62.5 mcg/actuation powder for inhalation TAKE 1 PUFF BY MOUTH EVERY DAY active metoprolol succinate ER 50 mg tablet,extended release 24 hr TAKE 1 TABLET BY MOUTH EVERY DAY active montelukast 10 mg tablet TAKE 1 TABLET BY MOUTH EVERY DAY DIRECTED active Symbicort 160 mcg-4.5 mcg/actuation HFA aerosol inhaler INHALE 2 PUFFS INTO LUNGS EVERY 12 HOURS active torsemide 10 mg tablet TAKE 1 TABLET BY MOUTH EVERY DAY active Encounters Encounter Type Encounter Reason Primary Diagnosis Location Date Ambulatory [facility] 11/[facility]/2024 [facility]ulatory [facility] 09/25/2024 Ambulatory [facility] [place] 02/23/2023 Ambulatory [facility] 02/23/2023 Ambulatory [facility] 11/21/2022 Care Team Organization Name Specialty Phone [facility] Esvin Larry [facility] 09/15/2024 [facility] Elvin Kirkwood [facility] 02/29/2024 [facility] Elvin Kirkwood [facility] 06/21/2022
--- OUTSIDE RECORDS SUMMARY | 2025-04-30 10:28 | XMS_ITS | Clinical Summary ---
Author Organization [facility] Address [address] [place] [address] Care Team Providers Care Jigsawyer Name Role Phone Elvin Christianson MD Primary Care Provider [phone] Allergies No known active allergies Medications Medication [...] Immunizations Name Administration Dates Next Due Covid-19 ([employer]) Dilution Required 11/13,06/04/2021,10/10/2020,09/19/19 21 Family History Medical [...] 91 03/04/2022 11:56 AM EDT Temperature 36.6 C (97.8 F) 03/04/2022 7:56 AM EDT Respiratory Rate 16 03/04/2022 7:56 AM EDT [...] 75+ series) 12/22/2011 COVID-19 Vaccine ( season) 2025 12/02/2021, 06/04/2021, 10/10/2020, Additional history exists Influenza Vaccine (#1) 2025 Hepatitis B Vaccines Aged Out No long er eligible based on patient's age to complete this topic RSV Ped < 20 months Aged Out No longe r eligible based on patient's age to complete this topic Medical Devices Implanted Type Area Casing Soaker Device Identifier Shelf Expiration Date Model / Serial / Lot Cement Bone Surg Simplex Radiopq Stry-How [id number] [id number] - [id number] Implanted:Qty: 1 on 03/03/2022 by Mansoor Handley [place] [facility] [place] [facility] Right: Knee [employer] 07/13/2023 6191-1-010 / / [id number] Cement Bone Surg Simplex Radiopq Stry-Howm [id number] [id number] - [id number] Implanted:Qty: 1 on 03/03/2022 by Mansoor Handley MD at [facility] [place] [facility] Right: Knee [employer] 07/13/2023 6191-1-010 / / [id number] Knee Fem Ps Trthln Sz 2 Rt Stry-Howm [id number] - [id number] Implanted:Qty: 1 on 03/03/2022 by Mansoor Handley MD at [facility] [place] [facility] Right: Knee [employer] [id number] 01/05/2027 5515-F-202 / / [id number] Knee Pat Symmetric X3 8x27mm Stry-How [id number] - [id number] Implanted:Qty: 1 on 03/03/2022 by Mansoor Handley MD at [facility] [place] [facility] Right: Knee [employer] [id number] 10/20/2026 5550-G-278 / / [id number] Knee Tib Baseplt Prim Cmnt Sz3 Stry-How [id number] - [id number] Implanted:Qty: 1 on 03/03/2022 by Mansoor Handley MD at [facility] [place] [facility] Right: Knee [employer] [id number] 12/22/2025 5520-B-300 / / [id number] Insert Tib Triathlon Bearing Stry-How [id number] - [id number] Implanted:Qty: 1 on 03/03/2022 by Mansoor Handley MD at [facility] [place] [facility] Right: Knee [employer] [id number] 01/13/2026 5532-G-309 / / [id number] Advance Directives For more information, please contact: [phone] Latest Code Status on File Code Status [...] way: discussion with patient . Care Teams Jigsawyer Relationship Specialty Start Date End Date Elvin Christianson MD [address] [place] [address] PCP - General Internal Medicine 12/08/21
--- OUTSIDE RECORDS SUMMARY | 2025-04-30 10:28 | XMS_ITS | Clinical Summary ---
Author Organization [facility] Address [address] [place] [address] Phone Care Team Providers Care Clinical Nurse Reviewer Name Role Phone Elvin Christianson MD Primary Care Provider [phone] Allergies No known active allergies Surgical History Surgery Date Site/Laterality Comments HYSTERECTOMY PROCEDURE: HISTORICAL HYSTERECTOMY APPENDECTOMY PROCEDURE: HISTORICAL APPENDECTOMY BLADDER SUSPENSION 2011 PROCEDURE: HISTORICAL BLADDER SUSPENSION HYSTERECTOMY PROCEDURE:HYSTERECTOMY COLONOSCOPY PROCEDURE:COLONOSCOPY BLADDER SURGERY PROCEDURE:BLADDER SURGERY APPENDECTOMY PROCEDURE:APPENDECTOMY TOTAL KNEE ARTHROPLASTY 03/03/2022 Right PROCEDURE:TOTAL KNEE ARTHROPLASTY;COMMENT:Procedure: REPLACEMENT TOTAL KNEE; Surgeon: Mansoor Handley MD; Location: [facility] Service: Orthopedics; Laterality: Right; JOINT REPLACEMENT PROCEDURE:JOINT REPLACEMENT Medical History Medical History Date Comments Arthritis 09/16/2016 DX:Arthritis Asthma 01/10/2017 DX:Asthma Coronary artery disease 09/16/2016 DX:Coron erica artery disease; COMMENT: Old HI Hypertension 09/16/2016 DX:Hypertension Hyperlipidemia DX:Hyperlipidemi a Esophageal reflux DX:Esophageal reflux COPD (chronic obstructive pu lmonary disease) ([facility]/HCC V24, [facility] V28) DX:COPD (chronic o bstructive pulmonary disease) (HCC) Heart disease DX:Heart disease Hypertension DX:Hypertension Asthma DX:Asthma Pneumonia DX:Pneumonia Bronchitis, chronic ([facility]/HCC V24, [facility] V28) DX:Bronchitis, chronic (HCC) Myocardial infarction ([facility]/H CC V24, [facility] V28) 2015 DX:Myocardial infarction (HC C) Vertigo 08/2021 DX:Vertigo Chronic constipation DX:Chronic constipation [...] not to disclose 2024 4:17 PM EST Obstetrics History Last Filed Vital Signs Vital Sign Reading Time Taken Comments Blood Pressure 123/61 10/03/2024 11:18 AM EST Pulse 76 10/03/2024 11:18 AM EST Temperature 36.6 C (97.9 F) 10/03/2024 11:18 AM EST Respiratory Rate 18 10/03/2024 11:18 AM EST Oxygen Saturation 97% 10/03/2024 11:18 AM EST Inhaled Oxygen Concentration - - Weight 56.2 kg (124 lb) 10/03/2024 11:18 AM EST Height 160 cm (5' 3 ) 10/03/2024 11:18 AM EST Body Mass Index 21.97 10/03/2024 11:18 AM EST Plan of Treatment Health Maintenance Due Date Last Done Comments Diabetes: Annual Foot Exam 1946 Diabetes: Annual Retina Eye Exam 1945 Zoster Vaccines (1 of 2) 1986 Falls Risk Assessment 07/22/2022 Medicare Annual Wellness Visit 07/22/2022 Osteoporosis Screening (Bone Density Screening) 07/22/2022 Social Influencers of Health Screening 07/22/2022 Depression Screening 08/14/2024 COVID-19 Vaccine ( season) 2025 04/24/2024, 05/19/2023, 05/26/2022, Additional history exists Influenza Vaccine (#1) 2025 2, 05/05/2021, 05/18/2020, Additional history exists Diabetes: Blood Sugar Control Test (HGBA1C) 10/16/2025 04/18/2025, 11/18/2024, 08/26/2024 Hypertension/CHF/CAD Annual BMP Blood Test 04/18/2026 04/18/2025, 11/18/2024, 10/03/2024, Additional history exists Cholesterol Screening (Lipid Panel) 04/18/2030 04/18/2025, 11/18/2024 DTaP,Tdap,and Td Vaccines (2 - Td or Tdap) 08/31/2032 08/31/2022 RSV Immunization Adult Patients Completed 06/27/2023 Pneumococcal Vaccine: 50+ Years Completed 04/24/2024 HIB [...] age to complete this topic Meningococcal B Vaccine Aged Out No l onger eligible based on patient's age to complete this topic RSV Immunization Patients Under 20 months Aged Out No longer eligible based on patient's age to complete this topic Varicella Vaccines Aged Out No longer eligible based on patient's age to complete this topic Medical Devices Implanted Type Area Telehealth Coordinator Device Identifier Shelf Expiration Date Model / Serial / Lot Cement Bone Surg Simplex Radiopq Stry-How [id number] Implanted:Qty: 1 on 03/03/2022 by Mansoor Handley MD Right: Knee [employer] 07/13/2023 6191-1-010 / / [id number] Cement Bone Surg Simplex Radiopq Stry-How [id number] Implanted:Qty: 1 on 03/03/2022 by Mansoor Handley MD Right: Knee [employer] 07/13/2023 6191-1-010 / / [id number] Knee Fem Ps Trthln Sz 2 Rt Stry-Howm [id number] Implanted:Qty: 1 on 03/03/2022 by Mansoor Handley MD Right: Knee [employer] [id number] 01/05/2027 5515-F-202 / / [id number] Knee Pat Symmetric X3 8x27mm Stry-Howm [id number] Implanted:Qty: 1 on 03/03/2022 by Mansoor Handley MD Right: Knee [employer] [id number] 10/20/2026 5550-G-278 / / [id number] Knee Tib Baseplt Prim Cmnt Sz3 Stry-Howm [id number] Implanted:Qty: 1 on 03/03/2022 by Mansoor Handley MD Right: Knee [employer] [id number] 12/22/2025 5520-B-300 / / [id number] Insert Tib Triathlon Bearing Stry-Howm [id number] Implanted:Qty: 1 on 03/03/2022 by Mansoor Handley MD Right: Knee [employer] [id number] 01/13/2026 5532-G-309 / / [id number] Procedures Procedure Name Priority Date/Time Associated Diagnosis Comments URINALYSIS WITH REFLEX MICROSCOPIC Routine 04/18/2025 8:32 AM EDT Encounter for general adult medical examination with abnormal findings Hyperlipidemia Genitourinary symptoms Diabetes mellitus ([facility]/HCC V24, [facility] V28) Acquired hypothyroidism Avitaminosis D VITAMIN D 25 HYDROXY Routine 04/18/2025 8:32 AM EDT Encounter for general adult medical examination with abnormal findings Hyperlipidemia Genitourinary symptoms Diabetes mellitus ([facility]/HCC V24, [facility] V28) Acquired hypothyroidism Avitaminosis D URINALYSIS WITH REFLEX MICROSCOPIC Routine 04/18/2025 8:32 AM EDT Encounter for general adult medical examination with abnormal findings Hyperlipidemia Genitourinary symptoms Diabetes mellitus (CMS/HCC V24, [facility] V28) Acquired hypothyroidism Avitaminosis D THYROID STIMULATING HORMONE Routine 04/18/2025 8:32 AM EDT Encounter for general adult medical examination with abnormal findings Hyperlipidemia Genitourinary symptoms Diabetes mellitus (CMS/HCC V24, CMS/HCC V28) Acquired hypothyroidism Avitaminosis D HEMOGLOBIN A1C Routine 04/18/2025 8:32 AM EDT Encounter for general adult medical examination with abnormal findings Hyperlipidemia Genitourinary symptoms Diabetes mellitus (CMS/HCC V24, [facility]/HCC V28) Acquired hypothyroidism Avitaminosis D THYROXINE FREE Routine 04/18/2025 8:32 AM EDT Encounter for general adult medical examination with abnormal findings Hyperlipidemia Genitourinary symptoms Diabetes mellitus (CMS/HCC V24, [facility]/HCC V28) Acquired hypothyroidism Avitaminosis D COMPREHENSIVE METABOLIC PANEL Routine 04/18/2025 8:32 AM EDT Encounter for general adult medical examination with abnormal findings Hyperlipidemia Genitourinary symptoms Diabetes mellitus (CMS/HCC V24, [facility]/HCC V28) Acquired hypothyroidism Avitaminosis D LIPID PANEL WITH REFLEX TO DIRECT LDL Routine 04/18/2025 8:32 AM EDT Encounter for general adult medical examination with abnormal findings Hyperlipidemia Genitourinary symptoms Diabetes mellitus (CMS/HCC V24, [facility]/HCC V28) Acquired hypothyroidism Avitaminosis D COMPLETE BLOOD COUNT Routine 04/18/2025 8:32 AM EDT Encounter for general adult medical examination with abnormal findings Hyperlipidemia Genitourinary symptoms Diabetes mellitus (CMS/HCC V24, [facility]/HCC V28) Acquired hypothyroidism Avitaminosis D from Last 3 Months Results * (ABNORMAL) Urinalysis with reflex microscopic (04/18/2025 8:32 AM EDT) [facility] Specific [place] Urine 1.013 1.003 - 1.030 LAB URINALYSIS - AUTOMATED METHOD 04/18/2025 9:38 AM EDT [facility] pH, Urine 7.0 5.0 - 8.0 pH LAB URINALYSIS - AUTOMATED METHOD 04/18/2025 9:38 AM [facility] Leukocytes, Urine Small(A) Negative LAB URINALYSIS - AUTOMATED METHOD 04/18/2025 9:38 AM [facility] Nitrite, Urine Negative Negative LAB URINALYSIS - AUTOMATED METHOD 04/18/2025 9:38 AM [facility] Protein, Urine Negative <=Trace mg/dL LAB URINALYSIS - AUTOMATED METHOD 04/18/2025 9:38 AM [facility] Glucose, Urine Negative Negative mg/dL LAB URINALYSIS - AUTOMATED METHOD 04/18/2025 9:38 AM [facility] Ketones, Urine Negative Negative mg/dL LAB URINALYSIS - AUTOMATED METHOD 04/18/2025 9:38 AM [facility] Urobilinogen, Urine 0.2 0.2 - 1.0 mg/dL LAB URINALYSIS - AUTOMATED METHOD 04/18/2025 9:38 AM [facility] Bilirubin, Urine Negative Negative LAB URINALYSIS - AUTOMATED METHOD 04/18/2025 9:38 AM [facility] Blood, Urine Negative Negative LAB URINALYSIS - AUTOMATED METHOD 04/18/2025 9:38 AM [facility] RBC, Urine 2.2 0 - 4 /HPF LAB URINALYSIS - AUTOMATED METHOD 04/18/2025 9:38 AM [facility] WBC, Urine 3.5 0 - 4 /HPF LAB URINALYSIS - AUTOMATED METHOD 04/18/2025 9:38 AM [facility] Squamous Epithelial, Urine 8 0 - 60 /LPF LAB URINALYSIS - AUTOMATED METHOD 04/18/2025 9:38 AM [facility] Bacteria, Urine Negative Negative /HPF LAB URINALYSIS - AUTOMATED METHOD 04/18/2025 9:38 AM EDT [facility] Hyaline Casts, Urine 0.4 0 - 3 /LPF LAB URINALYSIS - AUTOMATED METHOD 04/18/2025 9:38 AM [facility] Urine Urine specimen obtained by clean catch procedure / Unknown Non-blood Collection / Unknown 04/18/2025 8:32 AM EDT 04/18/2025 9:12 AM EDT Henny [facility] LAB URINE ORDERABLES Final Result [facility] [address] [place] [address], [place] [phone] * Lipid panel with reflex to direct LDL (04/18/2025 8:32 AM EDT) Cholesterol 134 0 - 200 mg/dL LAB CHEMISTRY METHOD 04/18/2025 9:58 AM [facility] Triglycerides 61 0 - 150 mg/dL LAB CHEMISTRY METHOD 04/18/2025 9:58 AM [facility] HDL 76 >=40 mg/dL LAB CHEMISTRY METHOD 04/18/2025 9:58 AM [facility] LDL Calculated 46 0 - 100 mg/dL LAB CHEMISTRY METHOD 04/18/2025 9:58 AM [facility] Comment:Estimated LDL Calcul ated using equation: Total cholesterol - HDL cholesterol - (Triglycerides/5) VLDL Cholesterol Dameon 12.2 mg/dL LAB CHEMISTRY METHOD 04/18/2025 9:58 AM [facility] Non HDL Chol. (LDL+VLDL) 58 <145 mg/dL LAB CHEMISTRY METHOD 04/18/2025 9:58 AM [facility] Chol/HDL Ratio 1.8 0.0 - 4.4 LAB CHEMISTRY METHOD 04/18/2025 9:58 AM [facility] Blood Venous blood specimen / Unknown Venipuncture / Unknown 04/18/2025 8:32 AM EDT 04/18/2025 9:10 AM [facility] BLOOD ORDERABLES Final Result Performing Organization Address [facility]/ZIP Co de Phone Number [facility] [address] [place] [address], [place] [phone] * Vitamin D 25 hydroxy (04/18/2025 8:32 AM EDT) Pathologist [facility] Vit D, 25-Hydroxy 40.9 30.0 - 80.0 ng/mL LAB CHEMISTRY METHOD 04/18/2025 11:38 AM EDT [facility] Blood Venous blood specimen / Unknown Venipuncture / Unknown 04/18/2025 8:32 AM EDT 04/18/2025 9:10 AM EDT [facility] BLOOD ORDERABLES Final Result Performing Organization Address [facility]/ZIP Co de Phone Number [facility] [address] [place] [address], [place] [phone] * Complete blood count (04/18/2025 8:32 AM EDT) [facility] WBC 6.5 4.8 - 10.8 K/mcL LAB HEMETOLOGY METHOD 04/18/2025 9:25 AM EDT [facility] RBC 4.20 3.80 - 4.80 M/mcL LAB HEMETOLOGY METHOD 04/18/2025 9:25 AM EDT [facility] Hemoglobin 12.6 11.5 - 16.0 g/dL LAB HEMETOLOGY METHOD 04/18/2025 9:25 AM EDT [facility] Hematocrit 37.4 35.0 - 47.0 % LAB HEMETOLOGY METHOD 04/18/2025 9:25 AM EDT [facility] MCV 89.0 79.0 - 98.0 FL LAB HEMETOLOGY METHOD 04/18/2025 9:25 AM EDT [facility] MCH 30.0 27.0 - 32.0 pcg LAB HEMETOLOGY METHOD 04/18/2025 9:25 AM EDT [facility] MCHC 33.7 32.0 - 37.0 g/dL LAB HEMETOLOGY METHOD 04/18/2025 9:25 AM EDT [facility] RDW 13.2 11.0 - 15.0 % LAB HEMETOLOGY METHOD 04/18/2025 9:25 AM EDT [facility] Platelets 239 130 - 400 K/mcL LAB HEMETOLOGY METHOD 04/18/2025 9:25 AM EDT [facility] MPV 10.3 7.0 - 11.0 FL LAB HEMETOLOGY METHOD 04/18/2025 9:25 AM EDT [facility] NRBC 0.0 <1.0 % LAB HEMETOLOGY METHOD 04/18/2025 9:25 AM T [facility] NRBC Absolute 0.00 <0.10 K/mcL LAB HEMETOLOGY METHOD 04/18/2025 9:25 AM [facility] Blood Venous blood specimen / Unknown Venipuncture / Unknown 04/18/2025 8:32 AM EDT 04/18/2025 9:14 AM EDT Henny LYONS LAB BLOOD ORDERABLES Final Result [facility] [address] [place] [address], * Thyroid stimulating hormone (04/18/2025 8:32 AM EDT) TSH 2.03 0.40 - 4.00 mcIU/mL LAB CHEMISTRY METHOD 04/18/2025 11:38 AM EDT [facility] Blood Venous blood specimen / Unknown Venipuncture / Unknown 04/18/2025 8:32 AM EDT 04/18/2025 9:10 AM EDT Henny LYONS LAB BLOOD ORDERABLES Final Result [facility] [address] [place] [address], [place] [phone] * Thyroxine free (04/18/2025 8:32 AM EDT) Free T4 1.43 0.70 - 1.80 ng/dL LAB CHEMISTRY METHOD 04/18/2025 11:38 AM EDT [facility] Blood Venous blood specimen / Unknown Venipuncture / Unknown 04/18/2025 8:32 AM EDT 04/18/2025 9:10 AM EDT Henny LYONS LAB BLOOD ORDERABLES Final Result Performing Organization Address [facility]/ZIP Co de Phone Number [facility] [address] [place] [address], [place] [phone] * Hemoglobin A1c (04/18/2025 8:32 AM EDT) Hemoglobin A1C 6.1 <6.5 % LAB CHEMISTRY METHOD 04/18/2025 11:10 AM EDT [facility] Mean Bld Glu Estim. 128 mg/dL LAB CHEMISTRY METHOD 04/18/2025 11:10 AM EDT [facility] Blood Venous blood specimen / Unknown Venipuncture / Unknown 04/18/2025 8:32 AM EDT 04/18/2025 9:14 AM EDT Henny LYONS LAB BLOOD ORDERABLES Final Result [facility] [address] [place] [address], [place] [phone] * (ABNORMAL) Comprehensive metabolic panel (04/18/2025 8:32 AM EDT) Sodium 134 133 - 145 mmol/L LAB CHEMISTRY METHOD 04/18/2025 10:18 AM [facility] Potassium 3.8 3.5 - 5.5 mmol/L LAB CHEMISTRY METHOD 04/18/2025 10:18 AM [facility] Chloride 98 96 - 110 mmol/L LAB CHEMISTRY METHOD 04/18/2025 10:18 AM [facility] CO2 31 21 - 32 mmol/L LAB CHEMISTRY METHOD 04/18/2025 10:18 AM [facility] Anion Gap 5 3 - 11 LAB CHEMISTRY METHOD 04/18/2025 10:18 AM [facility] Glucose 97 70 - 100 mg/dL LAB CHEMISTRY METHOD 04/18/2025 10:18 AM [facility] BUN 22 5 - 25 mg/dL LAB CHEMISTRY METHOD 04/18/2025 10:18 AM [facility] Creatinine 1.21(H) 0.50 - 1.10 mg/dL LAB CHEMISTRY METHOD 04/18/2025 10:18 AM [facility] eGFR 43(L) >=60 mL/min/1. 73m2 LAB CHEMISTRY METHOD 04/18/2025 10:18 AM [facility] Comment:Calculation based on the Chronic Kidney Disease Epidemiology Collaboration (CKD-EPI) equation refit without adjustment for race. BUN/Creatinine Ratio 18.2 LAB CHEMISTRY METHOD 04/18/2025 10:18 AM [facility] Calcium 9.4 8.5 - 10.5 mg/dL LAB CHEMISTRY METHOD 04/18/2025 10:18 AM [facility] AST (SGOT) 22 10 - 42 unit/L LAB CHEMISTRY METHOD 04/18/2025 10:18 AM EDT [facility] ALT (SGPT) 17 10 - 60 unit/L LAB CHEMISTRY METHOD 04/18/2025 10:18 AM EDT [facility] Alkaline Phosphatase 112 42 - 121 unit/L LAB CHEMISTRY METHOD 04/18/2025 10:18 AM EDT [facility] Total Protein 6.9 6.0 - 8.0 g/dL LAB CHEMISTRY METHOD 04/18/2025 10:18 AM EDT [facility] Albumin 3.8 3.2 - 5.0 g/dL LAB CHEMISTRY METHOD 04/18/2025 10:18 AM EDT [facility] Total Bilirubin 0.8 0.0 - 1.4 mg/dL LAB CHEMISTRY METHOD 04/18/2025 10:18 AM EDT [facility] Comment:Results verified by repeat testing Blood Venous blood specimen / Unknown Venipuncture / Unknown 04/18/2025 8:32 AM EDT 04/18/2025 9:10 AM EDT Henny LYONS LAB BLOOD ORDERABLES Final Result [facility] [address] [place] [address], from Last 3 Months Insurance MEDICARE [facility] Care Teams Clinical Nurse Reviewer Relationship Specialty Start Date End Date Elvin Christianson MD [address] [place] [phone] PCP - General Internal Medicine 01/09/18
== END 2025-04-30 09:26 | disposition home or self-care (01) ==
LOC: HO.HSM 08:53
PROVIDERS: PCP Internal Medicine; Referring Provider Internal Medicine; Visit Provider Registered Nurse
DX: I69.30 Unspecified sequelae of cerebral infarction (principal)
CPT/HCPCS: 99214

== ENCOUNTER → 2025-04-30 08:53 | Outpatient (BNVA) | payer MEDICARE, OTHER, SELFPAY | PROVIDERS: PCP Internal Medicine; Referring Provider Internal Medicine; Visit Provider Registered Nurse | DX: I69.30 Unspecified sequelae of cerebral infarction (principal); Z79.01 Long term (current) use of anticoagulants; Z79.899 Other long term (current) drug therapy; Z95.0 Presence of cardiac pacemaker | CPT/HCPCS: 99212 ==